=== PATIENT | male | born 1960 | race Caucasian/White ===

== ENCOUNTER → 2018-01-06 | Outpatient (CLI) | payer BC ==
[2018-01-06 12:21] LABS: Basophils % (A) 1 %; Eosinophils # (A) 0.4 k/uL (0-0.7); Eosinophils % (A) 6 %; HCT 51.9 % (39.0-53.0); HGB 17.3 gm/dL (13.0-17.5); Lymphocytes # (A) 1.3 k/uL (1.0-4.8); Lymphocytes % (A) 20 %; MCH 31.7 pg (25.0-35.0); MCHC 33.3 g/dL (31.0-37.0); MCV 95.1 fL (80.0-100.0); Mean Platelet Volume 6.9; Monocytes # (A) 0.5 k/uL (0-1.0); Monocytes % (A) 7 %; Neutrophils # (A) 4.5 k/uL (1.3-7.7); Neutrophils % (A) 65 %; Platelet Count 303 k/uL (150-450); RBC 5.46 m/uL (4.30-5.90); RDW 13.1 % (11.5-15.5); WBC 6.8 k/uL (3.8-10.6)
[2018-01-06 12:54] LABS: Anion Gap 10 mmol/L; Blood Urea Nitrogen 20 mg/dL (9-20); Calcium 9.6 mg/dL (8.4-10.2); Carbon Dioxide 29 mmol/L (22-30); Chloride 101 mmol/L (98-107); Glucose 104 mg/dL (74-99); Potassium 5.2 mmol/L (3.5-5.1); Sodium 140 mmol/L (137-145)
== END | disposition home or self-care (01) ==
LOC: LABPAT 11:24
PROVIDERS: ATTEND Urology
DX: Z01.812 Encounter for preprocedural laboratory examination (principal); C61 Malignant neoplasm of prostate; E78.5 Hyperlipidemia, unspecified; R35.0 Frequency of micturition; R31.29 Other microscopic hematuria
CPT/HCPCS: 36415; 80048; 85025; 87086

== ENCOUNTER 2018-01-14 09:13 | Observation (INO) | payer BC ==
[2018-01-11 16:46] VITALS: BMI 20.7
[~2018-01-14 09:13] MED LIST: DEXAMETHASONE SOD PHOSPHATE 10 MG/ML 1 ML VIAL IV ONE; HYDROmorphone 0.5 MG/0.5 ML SYRINGE IVP PRN; ONDANSETRON 4 MG/2 ML VIAL IVP ONE; ceFAZolin IN SWFI 2 GM/20 ML SYRINGE IVP ONE
[2018-01-14] MEDS: LACTATED RINGERS 1,000 ML IV SCH ×2 (10:05→10:06)
[2018-01-14] MEDS ORDERED: LIDOCAINE 1% 20 ML VIAL (10MG/ML) FOR IV START INTRADERMA ONE ×2 (10:06)
[2018-01-14] MEDS ORDERED: MIDAZOLAM 2 MG/2 ML VIAL ONE (12:39)
[2018-01-14] MEDS ORDERED: GLYCOPYRROLATE 0.2 MG/ML 2 ML VIAL ONE (12:39)
[2018-01-14] MEDS ORDERED: SUCCINYLCHOLINE CHLORIDE 100 MG/5 ML SYR IV ONE (12:39)
[2018-01-14] MEDS ORDERED: ePHEDrine SULFATE/0.9% NACL/PF 50 MG/5 ML SYRINGE IV ONE (12:39)
[2018-01-14] MEDS ORDERED: PROPOFOL 10 MG/ML 20 ML VIAL IV ONE (12:39)
[2018-01-14] MEDS ORDERED: ROCURONIUM BROMIDE 10 MG/ML 10 ML VIAL IV ONE (12:39)
[2018-01-14] MEDS ORDERED: NEOSTIGMINE 1 MG/ML 10 ML VIAL ONE (12:39)
[2018-01-14] MEDS ORDERED: fentaNYL (PF) 50 MCG/ML 2 ML AMP ONE (12:39)
[2018-01-14] MEDS ORDERED: LIDOCAINE 1% INJ 10MG/ML (20 ML MDV) ONE (12:39)
[2018-01-14] MEDS ORDERED: HYDROmorphone (PF) 1 MG/ML ONE (12:39)
[2018-01-14] MEDS ORDERED: BUPIVACAINE (PF) 0.5% 30 ML VIAL SQ ONE ×2 (13:01)
--- NOTE | 2018-01-14 15:51 | P.OP ---
Date of Procedure: 01/14/18 Preoperative Diagnosis: Adenocarcinoma of the Prostate, Clinical Stage [id number] Postoperative Diagnosis: Same Procedure(s) Performed: Left Nerve-Sparing Robotic-assisted Laparoscopic Prostatectomy (RALP) Anesthesia: TACOS Surgeon: Fredo Godoy Supervisor Forming And Tempering #1: Perri Reyna Estimated Blood Loss (ml): 100 IV fluids (ml): 700 Pathology: other (Prostate and seminal vesicles) Condition: stable Disposition: PACU Indications for Procedure: He is a 57-year-old male with a family history of prostate cancer. His PSA level has risen to 4.7. Prostate biopsies reveal [place] 6-7 in 5 of 12 biopsies. Treatment options: RALP, IMRT +/- ADT, Combination RT. He has elected to undergo a left nerve-sparing RALP. He understands the likelihood of postoperative erectile dysfunction, and is not particularly concerned about this. He also understands the possible need for adjuvant therapy. Operative Findings: No evidence of extraprostatic disease Description of Procedure: The patient was taken in the operating room and placed in the dorsal lithotomy position, with his legs supported in Jah stirrups. He was carefully positioned on a beanbag for stability. The abdomen and external genitalia were prepped and draped sterilely. A Rees catheter was inserted. The Veress needle was passed through the anterior abdominal wall immediately cephalad to the umbilicus, and insufflation was performed to a pressure of 20 mm Hg. Once insufflation was performed, the Veress needle was removed and a supraumbilical incision was made, through which a 12 mm camera port was placed. Under camera guidance, 3 8 mm robotic ports were placed, 2 on the left and one on the right. An additional 12 mm port was placed on the right lateral side for use as an travel assistant port. A 5 mm port was placed to the right of the camera port for suction. The patient was placed in Trendelenburg position, and docking was then performed to the da Miah system utilizing a 4-arm approach. The abdomen was examined. The sigmoid colon was mobilized out of the pelvis. The peritoneum was incised lateral to the medial umbilical ligaments bilaterally , exposing the pubis. The peritoneum was then incised across the midline, allowing the bladder flap to be taken down. The endopelvic fascia was opened bilaterally, and muscular attachments from the urogenital diaphragm were swept away from the prostate. The vesical neck was incised transversely, down to the lumen. The Rees catheter was brought out through the anterior vesical neck incision and was used for traction. The posterior aspect of the vesical neck was incised, such that the full-thickness of the vesical neck was divided. The anterior layer of the Denonvilliers fascia was incised, exposing the vas deferens. Each were isolated and divided. Next, each of the seminal vesicles were dissected away from adjacent tissues, and vascular attachments were cauterized and divided. The posterior leaf of Denonvilliers fascia was incised transversely, allowing entry into the plane between the prostate and rectum. With lateral spreading, this plane was developed down to the apex. This exposed the lateral vascular pedicles bilaterally. These were clipped and divided in an antegrade fashion, down to the apex. The use of electrocautery was avoided on the left side, as the plane of dissection on that side was immediately adjacent to the prostate to preserve the left neurovascular bundle. The remaining apical attachments were swept away from the prostate. The dorsal venous complex was incised, as well as periurethral tissue. At this point, only the urethra remained intact. This was transected immediately distal to the prostatic apex using cold scissors. The specimen was placed within a specimen bag. The dorsal venous complex was sutured using a V-Loc suture in a running fashion. A second V-Loc suture was then used to place the Vito stitch, incorporating the rhabdosphincter and the edge of Denonvilliers fascia. This allowed the bladder to be taken down to the urethra, leaving the vesical neck immediately adjacent to the urethra. The vesicourethral anastomosis was then performed using a V-Loc suture in a running fashion. After completing the anastomosis, an 18-[place] Rees catheter was placed and approximately 150 mL of 0.9 normal saline were instilled into the bladder. No extravasation of irrigant from the vesicourethral anastomosis was noted. A small amount of oozing was noted from the left lateral vascular pedicle, so Surgicel was placed over this. The patient was returned to the supine position. Undocking was performed, and the specimen bag sutures were passed through the camera port. After removing all the ports and allowing all of the CO2 to be released from the peritoneal cavity, the camera port incision was enlarged to allow removal of the surgical specimen. The fascia of this incision was then closed using 0 Vicryl suture in an interrupted [id number] fashion. Each of the skin incisions were then closed using 4-0 Monocryl suture in a subcuticular fashion. Marcaine was injected at each of the incision sites. Dermabond was applied to each incision. The Rees catheter was connected to gravity drainage. All sponge and needle counts were correct. The patient tolerated the procedure well was taken to the recovery room in stable condition.
[2018-01-14] MEDS ORDERED: ONDANSETRON 4 MG/2 ML VIAL IVP PRN (15:52)
[2018-01-14] MEDS ORDERED: HYDROmorphone 0.5 MG/0.5 ML SYRINGE IVP PRN (15:52)
[2018-01-14] MEDS ORDERED: ACETAMINOPHEN TAB 325 MG TAB PO PRN (15:52)
[2018-01-14] MEDS ORDERED: MAG HYDROX/AL HYDROX/SIMETH 30 ML CUP PO PRN (15:52)
[2018-01-14] MEDS: DEXTROSE 5%-0.45% NACL 1,000 ML IV SCH ×2 (18:41→23:01)
[2018-01-14] MEDS: ALBUTEROL NEBULIZED 2.5 MG/3 ML INHALATION SCH (19:54)
[2018-01-14] MEDS: ATORVASTATIN 40 MG TAB PO SCH (22:52)
[2018-01-14] MEDS: KETOROLAC 30 MG/ML 1 ML VIAL IVP PRN (23:00)
[2018-01-14] MEDS: ALBUTEROL NEBULIZED 2.5 MG/3 ML INHALATION PRN (23:27)
[2018-01-15] MEDS: PANTOPRAZOLE 40 MG TABLET PO SCH (07:29)
[2018-01-15] MEDS: SERTRALINE 25 MG TAB PO SCH (07:29)
[2018-01-15] MEDS: DEXTROSE 5%-0.45% NACL 1,000 ML IV SCH ×3 (07:29→20:47)
[2018-01-15] MEDS: ALBUTEROL NEBULIZED 2.5 MG/3 ML INHALATION PRN ×2 (07:41→14:09)
[2018-01-15] MEDS: KETOROLAC 30 MG/ML 1 ML VIAL IVP PRN ×3 (09:56→22:15)
--- NOTE | 2018-01-15 12:29 | P.DS ---
Providers Date of admission: 01/15/18 01:59 Attending physician: Fredo Godoy Primary care physician: Sadiq [facility] Course: The patient is a 57-year-old gentleman with prostate cancer. He is admitted to the hospital yesterday for robotic-assisted radical prostatectomy by Dr. Godoy he did well overnight. He is feeling relatively well this morning. He is ambulated a little. His diet has been regular. His abdomen soft. Discussed discharge. He'll ambulate this afternoon. If his pain is controlled he can ambulate and be discharged home later today on a regular diet limited activity. Ago with a catheter. Obesity in the office in January [address] Larsen. He has been given a prescription of [place] 14 tablets. Postoperative instructions been given. Condition is good. Pathology is pending.. Patient Condition at Discharge: Good Plan - Discharge Summary Discharge Rx Participant: No New Discharge Prescriptions: New HYDROcodone/APAP 5-325MG [[place] 5-325] 1 tab PO Q4HR PRN #14 tab PRN Reason: Pain Control No Action Sertraline [Zoloft] 25 mg PO DAILY Albuterol Sulfate [Proventil Hfa] 1 - 2 puff INHALATION RT-Q6H PRN PRN Reason: COPD Albuterol Nebulized [Ventolin Nebulized] 2.5 mg INHALATION RT-HS Omeprazole [PriLOSEC] 20 mg PO AC-BRKFST Atorvastatin [Lipitor] 40 mg PO HS Discharge Medication List Albuterol Nebulized [Ventolin Nebulized] 2.5 mg INHALATION RT-HS 06/04/16 [ History] Albuterol Sulfate [Proventil Hfa] 1 - 2 puff INHALATION RT-Q6H PRN 06/04/16 [ History] Atorvastatin [Lipitor] 40 mg PO HS 06/04/16 [History] Omeprazole [PriLOSEC] 20 mg PO AC-BRKFST 06/04/16 [History] Sertraline [Zoloft] 25 mg PO DAILY 06/04/16 [History] HYDROcodone/APAP 5-325MG [[place] 5-325] 1 tab PO Q4HR PRN #14 tab 01/15/18 [Rx] Follow up Appointment(s)/Referral(s): Fredo Godoy MD [STAFF PHYSICIAN] - 01/24/18 Activity/Diet/Wound Care/Special Instructions: Home with Rees. Discharge Disposition: HOME SELF-CARE
[2018-01-15] MEDS: ALBUTEROL NEBULIZED 2.5 MG/3 ML INHALATION SCH (19:14)
[2018-01-15] MEDS: ATORVASTATIN 40 MG TAB PO SCH (20:46)
[2018-01-15] MEDS: LACTATED RINGERS 1,000 ML IV SCH (20:48)
[2018-01-16] MEDS: ALBUTEROL NEBULIZED 2.5 MG/3 ML INHALATION PRN ×2 (02:47→09:00)
[2018-01-16] MEDS: KETOROLAC 30 MG/ML 1 ML VIAL IVP PRN ×2 (03:59→10:45)
[2018-01-16 07:52] VITALS: TEMP 97.6
[2018-01-16] MEDS: SERTRALINE 25 MG TAB PO SCH (07:59)
[2018-01-16] MEDS: PANTOPRAZOLE 40 MG TABLET PO SCH (07:59)
[2018-01-16] MEDS: DEXTROSE 5%-0.45% NACL 1,000 ML IV SCH ×2 (08:01→16:06)
--- NOTE | 2018-01-16 11:04 | P.PN ---
Subjective Progress Note Date: 01/16/18 The patient is status post robotic-assisted radical prostatectomy. From that standpoint he is doing well. He had problems with his O2 saturation at 85% off oxygen yesterday. He has been working with Dr. Agosto for possible home oxygen. I kept him in the hospital and Dr. Alfredo are seen in this morning and probably going to arrange for oxygen. He can be discharged home at any time once this is been taking care of. Objective - Vital Signs Vital signs: Vital Signs Temp 97.6 F 01/16/18 07:50 Pulse 64 01/16/18 09:11 Resp 18 01/16/18 07:50 BP 149/71 01/16/18 07:50 Pulse Ox 92 L 01/16/18 05:20 Intake & Output 01/15/18 01/16/18 01/16/18 18:59 06:59 18:59 Intake Total 1625 1000 Output Total 1490 2275 Balance 135 -1275 Intake: Intake, IV Titration 1125 1000 Amount Dextrose 5%-0.45% NaCl 1, 1125 1000 000 ml @ 125 mls/hr IV . Q8H [facility] Rx#:[id number] Oral 500 Output: Urine 1490 2275 Uretheral (Rees) 1575 Other: Voiding Method Indwelling Catheter Indwelling Catheter Indwelling Catheter
--- NOTE | 2018-01-16 11:15 | XR ---
EXAMINATION TYPE: XR chest 2V DATE OF EXAM: 01/16/2018 COMPARISON: Prior chest x-ray 06/09/2016 and 12/03/2017 HISTORY: Shortness of breath, COPD TECHNIQUE: Frontal and lateral views of the chest are obtained. FINDINGS: There is improvement in aeration in the right upper lobe. No evident pneumothorax or pleur al effusion. Residual scarring is suspected in the right lung, there may be basilar atelectasis. Card iac mediastinal silhouette shows possible enlargement of the pulmonary artery, consider pulmonary art harlan hypertension. There is minimal blunting of the posterior costophrenic angle. IMPRESSION: Suspect scarring, there may be basilar atelectasis, small effusion, follow-up as indicat ed
--- NOTE | 2018-01-16 15:37 | P.CNPUL ---
History of Present Illness Consult date: 01/16/18 Reason for consult: COPD, hypoxemia Chief complaint: Prostate cancer History of present illness: This is a 57-year-old white male with history of severe COPD, normally sees Dr. Agosto, and supposedly he has a stage III COPD, and he continues to smoke. Patient is at least a [id number] smoker, he was recently diagnosed as having prostate cancer stage TIc. And he underwent robotic-assisted radical prostatectomy. Patient was supposed to be discharged home today, however his O2 saturation was low, and I was asked to see him on consultation. Patient has been evaluated by Dr. Agosto recently, and he was advised to go on home oxygen, apparently he qualified on outpatient basis, but for some reason his a shortness could not cover his oxygen, hence he never had it delivered to his house. Supposedly Dr. Agosto is still working on getting him oxygen at home. Patient has symptoms of chronic obstructive lung disease mostly intermittent episodes of cough wheezing shortness of breath, but he is no different today from his baseline. Based on the workup done while inpatient patient clearly qualifies for home oxygen. Hence I recommended that he gets oxygen and he could be discharged home to have follow-up with Dr. Agosto on outpatient basis. Presently denies any cough, no wheezing, he does have chronic dyspnea on exertion, unable to walk more than one block without significant dyspnea. No fever no chills no hemoptysis no nausea no vomiting no abdominal pain no melena no hematemesis no dysuria and no frequency no urgency. Review of Systems 14 point review of systems were obtained, please refer to pertinent positives and negatives as per HPI otherwise remaining systems are negative. Past Medical History Past Medical History: Cancer, COPD, GERD/Reflux, Hyperlipidemia, Osteoarthritis (OA), Pneumonia Additional Past Medical History / Comment(s): new dx. prostate cancer, vilma. inguinal hernias History of Any Multi-Drug Resistant Organisms: None Reported Additional Past Surgical History / Comment(s): COLONOSCOPY. SX FOR PUNCTURED LUNG Past Anesthesia/Blood Transfusion Reactions: No Reported Reaction Smoking Status: Current every day smoker - Past Family History Father Family Medical History: Cancer Mother Family Medical History: Cancer Medications and Allergies Home Medications Medication Instructions Recorded Confirmed Type Albuterol Nebulized [Ventolin 2.5 mg INHALATION RT-HS 06/04/16 01/15/18 History Nebulized] Albuterol Sulfate [Proventil Hfa] 1 - 2 puff INHALATION RT-Q6H PRN 06/04/16 History Atorvastatin [Lipitor] 40 mg PO HS 06/04/16 01/15/18 History Omeprazole [PriLOSEC] 20 mg PO AC-BRKFST 06/04/16 01/15/18 History Sertraline [Zoloft] 25 mg PO DAILY 06/04/16 01/15/18 History HYDROcodone/APAP 5-325MG [[place] 1 tab PO Q4HR PRN #14 tab 01/15/18 Rx 5-325] Allergies Allergy/AdvReac Type Severity Reaction Status Date / Time No Known Allergies Allergy Verified 01/15/18 10:12 Physical Exam Vitals: Vital Signs Temp Pulse Pulse Resp BP Pulse Ox 01/16/18 09:11 64 01/16/18 09:00 64 01/16/18 07:50 97.6 F 64 18 149/71 01/16/18 05:20 97.4 F L 74 16 125/65 92 L 01/16/18 02:56 68 01/16/18 02:47 64 01/15/18 20:40 98.0 F 62 18 136/72 92 L 01/15/18 19:24 73 01/15/18 19:15 70 01/15/18 16:03 97.4 F L 69 16 123/58 92 L Intake and Output 01/16/18 01/16/18 01/16/18 06:59 14:59 22:59 Intake Total 550 Output Total 1275 Balance -1275 550 Intake: Intake, IV Titration 550 Amount Dextrose 5%-0.45% NaCl 1, 550 000 ml @ 125 mls/hr IV . Q8H [facility] Rx#:[id number] Output: Urine 1275 Uretheral (Rees) 575 Other: Voiding Method Indwelling Catheter Physical Exam: Revealed a 57-year-old white male in no distress. Head: Atraumatic, normocephalic. HEENT:[Neck is supple.] [No neck masses.] [No thyromegaly.] [No JVD.] Chest: Diminished breath sound bilaterally, no crackles or rhonchi or wheezes. Cardiac Exam: [Normal S1 and S2, no S3 gallop, no murmur.] Abdomen: [Soft, nontender, no megaly, no rebound, no guarding, normal bowel sounds.] Extremities: [No clubbing, no edema, no cyanosis.] Neurological Exam: [No focal neurologic deficit. Lymphatics: No lymphadenopathy. Psychiatric: Normal mood affect and mental status examination.] Results - Diagnostic Findings Chest x-ray: image reviewed (Chronic scarring in the right upper lobe, and minimal basilar atelectasis.) Assessment and Plan Assessment: Impression: 1 Chronic hypoxic respiratory failure secondary to severe COPD. 2 status post prostatectomy for recently diagnosed prostate cancer, postoperative day #1. 3 hypercholesterolemia, maintained on atorvastatin. Chronic tobacco dependence syndrome History of depression presently inactive. Recommendation: Patient will be given a prescription for home O2 at 2 L nasal cannula, he was advised to remain on the same bronchodilators that were given to him by Dr. Agosto, advised to follow-up in our office in 1-2 weeks at the most. Cleared for discharge today. Time with Patient: Greater than 30
[2018-01-16 16:18] VITALS: BP 149/74; PULSE 70; RESP 16
== END 2018-01-16 16:33 | disposition home or self-care (01) ==
LOC: OR 09:13 → 5MS5E 16:01 → OR 01-15 01:59
PROVIDERS: ADMIT Urology; ATTEND Urology
DX: C61 Malignant neoplasm of prostate (principal); J44.9 Chronic obstructive pulmonary disease, unspecified; F17.210 Nicotine dependence, cigarettes, uncomplicated; K21.9 Gastro-esophageal reflux disease without esophagitis; E78.5 Hyperlipidemia, unspecified; M19.90 Unspecified osteoarthritis, unspecified site; J96.11 Chronic respiratory failure with hypoxia; E78.00 Pure hypercholesterolemia, unspecified; F32.9 Major depressive disorder, single episode, unspecified; F41.9 Anxiety disorder, unspecified; M54.5 Low back pain; Z91.19 Patient's noncompliance with other medical treatment and regimen; Z87.01 Personal history of pneumonia (recurrent); Z79.51 Long term (current) use of inhaled steroids; Z79.899 Other long term (current) drug therapy; Z80.42 Family history of malignant neoplasm of prostate; Z80.9 Family history of malignant neoplasm, unspecified
CPT/HCPCS: 55866; 94640 ×5; 81025; 86900; 86901; 86850; 88309; 71046; 36415; G0378 ×2; J2250; J1100; J2710; J2405; J2001; J3010; J1885 ×3; J1170; J0330; J2704

== ENCOUNTER → 2018-06-20 | Outpatient (CLI) | payer BC | END | disposition home or self-care (01) | LOC: LABWHC1 11:01 | PROVIDERS: ATTEND Urology | DX: C61 Malignant neoplasm of prostate (principal) | CPT/HCPCS: 36415; 84153 ==

== ENCOUNTER 2018-06-26 15:52 | Observation (INO) | payer BC ==
[2018-06-26] MEDS ORDERED: SODIUM CHLORIDE 0.9% 1,000 ML IV STA (16:37)
[2018-06-26] MEDS ORDERED: ASPIRIN 81 MG PO STA (16:37)
[2018-06-26 17:44] LABS: Basophils # (A) 0.1 k/uL (0-0.2); Basophils % (A) 1 %; Eosinophils # (A) 0.5 k/uL (0-0.7); Eosinophils % (A) 4 %; HCT 48.6 % (39.0-53.0); HGB 15.7 gm/dL (13.0-17.5); Lymphocytes # (A) 1.7 k/uL (1.0-4.8); Lymphocytes % (A) 17 %; MCH 31.4 pg (25.0-35.0); MCHC 32.3 g/dL (31.0-37.0); MCV 97.2 fL (80.0-100.0); Mean Platelet Volume 6.3; Monocytes # (A) 0.5 k/uL (0-1.0); Monocytes % (A) 5 %; Neutrophils # (A) 7.4 k/uL (1.3-7.7); Neutrophils % (A) 72 %; Platelet Count 420 k/uL (150-450); RDW 12.2 % (11.5-15.5); WBC 10.2 k/uL (3.8-10.6)
[2018-06-26 17:59] LABS: Partial Thromboplastin Time 24.8 sec (22.0-30.0); Prothrombin Time 10.4 sec (9.0-12.0)
[2018-06-26 18:01] LABS: ALT 26 U/L (21-72); AST 15 U/L (17-59); Albumin 3.9 g/dL (3.5-5.0); Alkaline Phosphatase 54 U/L (38-126); Anion Gap 7 mmol/L; Blood Urea Nitrogen 19 mg/dL (9-20); Calcium 9.4 mg/dL (8.4-10.2); Carbon Dioxide 27 mmol/L (22-30); Chloride 107 mmol/L (98-107); Glucose 94 mg/dL (74-99); Lipase 57 U/L (23-300); Magnesium 2.1 mg/dL (1.6-2.3); Potassium 4.6 mmol/L (3.5-5.1); Sodium 141 mmol/L (137-145); Total Bilirubin 0.3 mg/dL (0.2-1.3)
--- NOTE | 2018-06-26 18:10 | ED ---
General Adult HPI - General Chief complaint: Abdominal Pain Stated complaint: Hernia Source: patient, RN notes reviewed, old records reviewed Mode of arrival: ambulatory Limitations: no limitations - History of Present Illness Initial comments: 57-year-old male patient with past history of COPD presents in ED with approximately 3 week history of painful left inguinal hernia. Patient states that he was seen by his primary care physician who referred him to a general surgeon, however patient did not present to his appointment. Patient states that the pain in his lateral hernias dull, worse with exertion. The pain is waxing and waning not constant. Patient additionally had an episode of chest pain this morning. Patient describes the chest pain is substernal pressure. Patient states that this occurred for approximately half an hour while he was at rest. Patient denies any radiation of the chest pain. Patient denies any diaphoresis during this event. Patient states that the event resolved without intervention. Patient was at rest during the duration of this event. Patient denies current chest pain shortness of breath abdominal pain nausea vomiting diarrhea fever chills. Systemic: Pt denies fatigue, myalgia, fever/chills, rash. Pt denies weakness, night sweats, weight loss. Neuro: Pt denies headache, visual disturbances, syncope or pre-syncope. HEENT: Pt denies ocular discharge or irritation, otalgia, rhinorrhea, pharyngitis or notable lymphadenopathy. Cardiopulmonary: Pt denies SOB, heart palpitations, dyspnea on exertion. Abdominal/GI: Pt denies abdominal pain, n/v/d. : Pt denies dysuria, burning w/ urination, frequency/urgency. Denies new onset urinary or bowel incontinence. MSK: Pt denies myalgia, loss of strength or function in extremities. Neuro: Pt denies new onset weakness, paresthesias. - Related Data Home Medications Medication Instructions Recorded Confirmed Albuterol Nebulized [Ventolin 2.5 mg INHALATION RT-HS 06/04/16 06/26/18 Nebulized] Albuterol Sulfate [Proventil Hfa] 1 - 2 puff INHALATION RT-Q6H PRN 06/04/1604/05 Atorvastatin [Lipitor] 40 mg PO HS 06/04/16 06/26/18 Omeprazole [PriLOSEC] 20 mg PO AC-BRKFST 06/04/16 06/26/18 Sertraline [Zoloft] 25 mg PO DAILY 06/04/16 06/26/18 Allergies Allergy/AdvReac Type Severity Reaction Status Date / Time No Known Allergies Allergy Verified 06/26/18 16:30 Review of Systems ROS Statement: Those systems with pertinent positive or pertinent negative responses have been documented in the HPI. ROS Other: All systems not noted in ROS Statement are negative. Past Medical History Past Medical History: COPD, GERD/Reflux, Hyperlipidemia, Pneumonia, Prostate Disorder Additional Past Medical History / Comment(s): HAD PNEUMONIA ABOUT 3 WEEKS AGO History of Any Multi-Drug Resistant Organisms: MRSA Date of last positivie culture/infection: 02/28/18 MDRO Source:: MRSA URINE Additional Past Surgical History / Comment(s): COLONOSCOPY. SX FOR PUNCTURED LUNG. prostatectomy Past Anesthesia/Blood Transfusion Reactions: No Reported Reaction Past Psychological History: Anxiety, Depression Smoking Status: Current every day smoker - Past Family History Father Family Medical History: Cancer Mother Family Medical History: Cancer General Exam - General Exam Comments Initial Comments: Constitutional: NAD, AOX3, Pt has pleasant affect. HEENT: NC/AT, trachea midline, neck supple, no lymphadenopathy. Posterior pharynx non erythematous, without exudates. External ears appear normal, without discharge. Mucous membranes moist. Eyes PERRLA, EOM intact. There is no scleral icterus. No pallor noted. Cardiopulmonary: RRR, no murmurs, rubs or gallops, no JVD noted. Lungs CTAB in anterior and posterior horne. No peripheral edema. Abdominal exam: Abdomen soft and non-distended. Abdomen non-tender to palpation in all 4 quadrants. Bowel sounds active in LLQ. No hepatosplenomegaly. No ecchymosis Neuro: CN II-XII grossly intact. No nuchal rigidity. MSK: No posterior calf tenderness bilaterally, homans sign negative bilaterally. Posterior tibialis and radial pulse +2 bilaterally. Sensation intact in upper and lower extremities. Full active ROM in upper and lower extremities, 5/5 stregnth. : Reducible direct inguinal hernia noted in left inguinal region. Nontender to palpation. Rectal exam displayed no abnormalities. No communication of hernia with scrotum. No erythema, discharge, signs of infection. Limitations: no limitations Course Vital Signs 06/26/18 06/26/18 06/26/18 16:20 20:50 21:00 Temperature 97.8 F Pulse Rate 67 63 63 Respiratory 18 14 13 Rate Blood Pressure 128/69 135/75 135/75 O2 Sat by Pulse 97 99 99 Oximetry 06/26/18 21:30 Temperature Pulse Rate 59 L Respiratory 23 Rate Blood Pressure 119/73 O2 Sat by Pulse 99 Oximetry Medical Decision Making - Medical Decision Making 57-year-old male patient presents in ED for 30 minutes of chest pain earlier in day, left inguinal hernia. Physical exam displayed the left inguinal hernia, soft and reducible. Physical exam did not display any other acute pathology. Extensive workup was conducted. EKG displayed normal sinus rhythm, some hyperacute T waves. Cardiac enzymes are negative, troponin was negative. CBC, CMP, UA were not impressive. CT abdomen pelvis did not display acute pathology. Patient to be admitted observation for chest pain. Case discussed with Dr. Alexander. - Lab Data Result diagrams: 06/26/18 17:34 06/26/18 17:34 Lab Results 06/26/18 06/26/18 06/26/18 Range/Units 17:34 17:34 17:34 WBC 10.2 (3.8-10.6) k/uL RBC 5.00 (4.30-5.90) m/uL Hgb 15.7 (13.0-17.5) gm/dL Hct 48.6 (39.0-53.0) % MCV 97.2 (80.0-100.0) fL MCH 31.4 (25.0-35.0) pg MCHC 32.3 (31.0-37.0) g/dL RDW 12.2 (11.5-15.5) % Plt Count 420 (150-450) k/uL Neutrophils % 72 % Lymphocytes % 17 % Monocytes % 5 % Eosinophils % 4 % Basophils % 1 % Neutrophils # 7.4 (1.3-7.7) k/uL Lymphocytes # 1.7 (1.0-4.8) k/uL Monocytes # 0.5 (0-1.0) k/uL Eosinophils # 0.5 (0-0.7) k/uL Basophils # 0.1 (0-0.2) k/uL PT 10.4 (9.0-12.0) sec INR 1.0 (<1.2) APTT 24.8 (22.0-30.0) sec Sodium 141 (137-145) mmol/L Potassium 4.6 (3.5-5.1) mmol/L Chloride 107 (98-107) mmol/L Carbon Dioxide 27 (22-30) mmol/L Anion Gap 7 mmol/L BUN 19 (9-20) mg/dL Creatinine 0.69 (0.66-1.25) mg/dL Est GFR (CKD-EPI)AfAm >90 (>60 ml/min/1.73 sqM) Est GFR (CKD-EPI)NonAf >90 (>60 ml/min/1.73 sqM) Glucose 94 (74-99) mg/dL Calcium 9.4 (8.4-10.2) mg/dL Magnesium 2.1 (1.6-2.3) mg/dL Total Bilirubin 0.3 (0.2-1.3) mg/dL AST 15 L (17-59) U/L ALT 26 (21-72) U/L Alkaline Phosphatase 54 (38-126) U/L Troponin I (0.000-0.034) ng/mL NT-Pro-B Natriuret Pep pg/mL Total Protein 7.0 (6.3-8.2) g/dL Albumin 3.9 (3.5-5.0) g/dL Lipase 57 (23-300) U/L Urine Color Urine Appearance (Clear) Urine pH (5.0-8.0) Ur Specific [place] (1.001-1.035) Urine Protein (Negative) Urine Glucose (UA) (Negative) Urine Ketones (Negative) Urine Blood (Negative) Urine Nitrite (Negative) Urine Bilirubin (Negative) Urine Urobilinogen (<2.0) mg/dL Ur Leukocyte Esterase (Negative) 06/26/18 06/26/18 06/26/18 Range/Units 17:34 17:34 17:50 WBC (3.8-10.6) k/uL RBC (4.30-5.90) m/uL Hgb (13.0-17.5) gm/dL Hct (39.0-53.0) % MCV (80.0-100.0) fL MCH (25.0-35.0) pg MCHC (31.0-37.0) g/dL RDW (11.5-15.5) % Plt Count (150-450) k/uL Neutrophils % % Lymphocytes % % Monocytes % % Eosinophils % % Basophils % % Neutrophils # (1.3-7.7) k/uL Lymphocytes # (1.0-4.8) k/uL Monocytes # (0-1.0) k/uL Eosinophils # (0-0.7) k/uL Basophils # (0-0.2) k/uL PT (9.0-12.0) sec INR (<1.2) APTT (22.0-30.0) sec Sodium (137-145) mmol/L Potassium (3.5-5.1) mmol/L Chloride (98-107) mmol/L Carbon Dioxide (22-30) mmol/L Anion Gap mmol/L BUN (9-20) mg/dL Creatinine (0.66-1.25) mg/dL Est GFR (CKD-EPI)AfAm (>60 ml/min/1.73 sqM) Est GFR (CKD-EPI)NonAf (>60 ml/min/1.73 sqM) Glucose (74-99) mg/dL Calcium (8.4-10.2) mg/dL Magnesium (1.6-2.3) mg/dL Total Bilirubin (0.2-1.3) mg/dL AST (17-59) U/L ALT (21-72) U/L Alkaline Phosphatase (38-126) U/L Troponin I <0.012 (0.000-0.034) ng/mL NT-Pro-B Natriuret Pep 36 pg/mL Total Protein (6.3-8.2) g/dL Albumin (3.5-5.0) g/dL Lipase (23-300) U/L Urine Color Light Yellow Urine Appearance Clear (Clear) Urine pH 6.0 (5.0-8.0) Ur Specific [place] 1.007 (1.001-1.035) Urine Protein Negative (Negative) Urine Glucose (UA) Negative (Negative) Urine Ketones Negative (Negative) Urine Blood Negative (Negative) Urine Nitrite Negative (Negative) Urine Bilirubin Negative (Negative) Urine Urobilinogen <2.0 (<2.0) mg/dL Ur Leukocyte Esterase Negative (Negative) - EKG Data -: EKG Interpreted by Me (and Dr. Alexander) EKG Comments: 2 EKGs: 1) ventricular rate 61,. For 132, QRS 114, QT/QTc 42/44. Normal sinus rhythm with incomplete right bundle-branch block. Hyperacute T waves in V3 V4 V5 and V6 2) ventricular rate 61,. For 136, QRS 102, T QT/QTc 48/410. Normal sinus rhythm normal EKG. Hyperacute T waves in V3. Disposition Clinical Impression: Chest pain Disposition: ADMITTED IP TO THIS HOSP Condition: Good
[2018-06-26 18:16] LABS: Appearance,Urine Clear (Clear); Bilirubin,Urine Negative (Negative); Blood,Urine Negative (Negative); Color,Urine Light Yellow; Glucose,Urine (UA) Negative (Negative); Ketones,Urine Negative (Negative); Leukocyte Esterase,Urine Negative (Negative); Nitrite,Urine Negative (Negative); Protein,Urine Negative (Negative); Specific Gravity,Urine 1.007 (1.001-1.035); Urobilinogen,Urine <2.0 mg/dL (<2.0)
--- NOTE | 2018-06-26 18:43 | XR ---
EXAMINATION TYPE: XR chest 2V DATE OF EXAM: 06/26/2018 COMPARISON: 01/16/2018 HISTORY: Chest pain TECHNIQUE: Frontal and lateral views of the chest are obtained. FINDINGS: There is no heart failure nor confluent pneumonic infiltrate. There is coarse reticular de nsity in the upper lobes. There is probably upper lobe pulmonary emphysema. There is no pleural effus ion. Heart size is normal. There are chest leads. There are no hilar masses. IMPRESSION: COPD and fibrotic changes at the lung apices. There is improved inspiration compared to old exam.
--- NOTE | 2018-06-26 20:26 | CT ---
EXAMINATION TYPE: CT ChestAbdPelvis w con DATE OF EXAM: 06/26/2018 COMPARISON: CT chest 07/08/2016 HISTORY: chest and abdominal pain, hx of hernia CT DLP: 531.2 mGycm Automated exposure control for dose reduction was used. CONTRAST: CT scan of the chest, abdomen and pelvis is performed without Oral Contrast and with IV Contrast, pat ient injected with 100 mL of Isovue 300. FINDINGS: There is pulmonary emphysema. There is bullous disease in the upper lobes. There is coarse reticular infiltrate in the right lung along the major fissure. There is no pleural effusion. Heart size is nor mal. There is no pericardial effusion. There are no hilar masses. Thoracic aorta is atheromatous. The re are is no mediastinal adenopathy. Liver shows no focal defect. Gallbladder appears normal. Bile ducts are not dilated. Spleen appears n ormal. There is no pancreatic mass. There is no adrenal mass. Kidneys show satisfactory contrast opac ification. There is no hydronephrosis. Abdominal aorta is atheromatous. Ureters are not dilated. Ther e is no retroperitoneal adenopathy. Appendix is not seen. There is no sign of appendicitis. Bladder d istends smoothly. There is no free fluid in the pelvis. There is no inguinal hernia. There is no evid ence of a bowel obstruction. I see no mesenteric edema or adenopathy. The bony pelvis is intact. Thor acic and lumbar spine are intact. There is no compression fracture. IMPRESSION: There is bullous emphysema. There is scarring along the right major fissure. There is sig nificant clearing of the infiltrate and cavitation in the right midlung compared to old exam. No acute abnormality seen within the abdomen and pelvis.
[2018-06-26] MEDS ORDERED: NALOXONE 0.4 MG/ML 1 ML VIAL IV PRN (21:27)
[2018-06-26 22:26] VITALS: BMI 19.3
[2018-06-26] MEDS ORDERED: TEMAZEPAM 15 MG CAP PO PRN (23:59)
[2018-06-26] MEDS ORDERED: HYDROcodone/APAP 5-325MG 1 EACH TAB PO PRN (23:59)
[2018-06-26] MEDS ORDERED: IPRATROPIUM-ALBUTEROL 3 ML NEB INHALATION PRN (23:59)
[2018-06-26] MEDS ORDERED: ACETAMINOPHEN TAB 500 MG TAB PO PRN (23:59)
[2018-06-26] MEDS ORDERED: ALPRAZolam 0.25 MG TAB PO PRN (23:59)
[2018-06-27] MEDS ORDERED: LEVOFLOXACIN 500MG-D5W PMX 500 MG in DEXTROSE/WATER 1 100ML.BAG IVPB SCH
[2018-06-27 03:25] VITALS: RESP 18
[2018-06-27] MEDS ORDERED: NON-FORMULARY DRUG (Omeprazole 20 MG) PO SCH (07:30)
[2018-06-27] MEDS ORDERED: PANTOPRAZOLE 40 MG TABLET PO SCH (07:30)
[2018-06-27] MEDS: IPRATROPIUM-ALBUTEROL 3 ML NEB INHALATION SCH ×3 (07:59→15:39)
[2018-06-27] MEDS ORDERED: SYMBICORT 160-4.5 MCG INHALER INHALATION SCH (08:00)
[2018-06-27] MEDS ORDERED: SERTRALINE 50 MG TAB PO SCH (09:00)
[2018-06-27] MEDS ORDERED: NICOTINE 14MG/24HR PATCH TRANSDERM SCH (09:00)
[2018-06-27 09:02] LABS: Basophils # (A) 0.1 k/uL (0-0.2); Basophils % (A) 1 %; Eosinophils # (A) 0.5 k/uL (0-0.7); Eosinophils % (A) 6 %; HCT 46.5 % (39.0-53.0); HGB 14.8 gm/dL (13.0-17.5); Lymphocytes # (A) 1.8 k/uL (1.0-4.8); Lymphocytes % (A) 19 %; MCH 31.5 pg (25.0-35.0); MCHC 31.9 g/dL (31.0-37.0); MCV 98.8 fL (80.0-100.0); Mean Platelet Volume 6.6; Monocytes # (A) 0.6 k/uL (0-1.0); Monocytes % (A) 6 %; Neutrophils # (A) 6.2 k/uL (1.3-7.7); Neutrophils % (A) 67 %; Platelet Count 386 k/uL (150-450); RBC 4.71 m/uL (4.30-5.90); RDW 12.3 % (11.5-15.5); WBC 9.4 k/uL (3.8-10.6)
--- NOTE | 2018-06-27 09:11 | P.CRDCN ---
History of Present Illness Consult date: 06/27/18 Requesting physician: Virgil Garcia Reason for Consult (text): chest pain Chief complaint: inguinal hernia, chest pain History of present illness: As a pleasant 57-year-old gentleman with history of hyperlipidemia, COPD, smoking, and prostate cancer. Was seen earlier this year in the office by Dr. Vieira prior to undergoing prostatectomy. At that time workup included a Lexiscan Cardiolite that was negative for fixed or reversible perfusion defects and showed a normal ejection fraction of 63% as well as a 2-D echo with Doppler that showed mildly decreased systolic function with an ejection fraction of 40- 45% with mild MR, mild TR, and mildly increased PASP. Presented to the emergency department on this occasion for complaints of discomfort involving his known inguinal hernia. He also complained of some chest discomfort that he described as a fullness that lasted about 20 minutes while he was sitting and drinking his coffee. He does get this occasionally. Relieved on its own not related to exertion. No exacerbating or relieving factors, no associated symptoms. EKG on admission showed sinus rhythm with no acute ST-T wave abnormalities. A evaluation showed a normal CBC, normal electrolytes and renal function and troponins negative 2. Vital signs up and stable. He's had no recurrence of chest discomfort. Upon examination, patient is resting comfortably in bed. Denies complaints of chest discomfort. He does have complaints of shortness of breath with activity that is chronic for him. He denies complaints of orthopnea or PND. Does have complaints of rapid heartbeat and mild lightheadedness with exertion. Past Medical History Past Medical History: COPD, GERD/Reflux, Hyperlipidemia, Pneumonia, Prostate Disorder Additional Past Medical History / Comment(s): HAD PNEUMONIA ABOUT 3 WEEKS AGO History of Any Multi-Drug Resistant Organisms: MRSA Date of last positivie culture/infection: 02/28/18 MDRO Source:: MRSA URINE Additional Past Surgical History / Comment(s): COLONOSCOPY. SX FOR PUNCTURED LUNG. prostatectomy Past Anesthesia/Blood Transfusion Reactions: No Reported Reaction Past Psychological History: Anxiety, Depression Smoking Status: Current every day smoker - Past Family History Father Family Medical History: Cancer Mother Family Medical History: Cancer Medications and Allergies Home Medications Medication Instructions Recorded Confirmed Type Albuterol Nebulized [Ventolin 2.5 mg INHALATION RT-HS 06/04/16 06/26/18 History Nebulized] Albuterol Sulfate [Proventil Hfa] 1 - 2 puff INHALATION RT-Q6H PRN 06/04/1604/05 History Atorvastatin [Lipitor] 40 mg PO HS 06/04/16 06/26/18 History Omeprazole [PriLOSEC] 20 mg PO AC-BRKFST 06/04/16 06/26/18 History Sertraline [Zoloft] 25 mg PO DAILY 06/04/16 06/26/18 History Allergies Allergy/AdvReac Type Severity Reaction Status Date / Time No Known Allergies Allergy Verified 06/26/18 16:30 Physical Exam Vitals: Vital Signs Temp Pulse Pulse Resp BP BP Pulse Ox 06/27/18 08:13 68 06/27/18 08:00 68 06/27/18 07:30 97.6 F 71 18 133/62 98 06/27/18 04:00 18 06/27/18 03:25 97.9 F 63 18 134/60 97 06/26/18 23:55 97.9 F 63 16 120/52 97 06/26/18 23:00 16 06/26/18 22:17 98.1 F 61 16 149/70 99 06/26/18 21:30 59 L 23 119/73 99 06/26/18 21:00 63 13 135/75 99 06/26/18 20:50 63 14 135/75 99 06/26/18 16:20 97.8 F 67 18 128/69 97 Intake and Output 06/26/18 06/27/18 06/27/18 22:59 06:59 14:59 Other: Voiding Method Toilet # Voids 1 2 Weight 54.4 kg 54.4 kg PHYSICAL EXAMINATION: HEENT: Head is atraumatic, normocephalic. Pupils equal, round. Neck is supple. There is no elevated jugular venous pressure. HEART EXAMINATION: Heart sounds regular, S1 and S2 normal. No murmur or gallop heard. CHEST EXAMINATION: Lungs are clear to auscultation with diminished air entry throughout. No chest wall tenderness is noted on palpation or with deep breathing. ABDOMEN: Soft, nontender. Bowel sounds are heard. No organomegaly noted. EXTREMITIES: 2+ peripheral pulses with no evidence of peripheral edema and no calf tenderness noted. NEUROLOGIC patient is awake, alert and oriented x3. . Results 06/27/18 08:05 06/27/18 08:05 Cardiac Enzymes 06/26/18 06/26/18 06/27/18 Range/Units 17:34 17:34 00:26 AST 15 L (17-59) U/L Troponin I <0.012 <0.012 (0.000-0.034) ng/mL Coagulation 06/26/18 Range/Units 17:34 PT 10.4 (9.0-12.0) sec APTT 24.8 (22.0-30.0) sec CBC 06/26/18 Range/Units 17:34 WBC 10.2 (3.8-10.6) k/uL RBC 5.00 (4.30-5.90) m/uL Hgb 15.7 (13.0-17.5) gm/dL Hct 48.6 (39.0-53.0) % Plt Count 420 (150-450) k/uL Comprehensive Metabolic Panel 06/26/18 Range/Units 17:34 Sodium 141 (137-145) mmol/L Potassium 4.6 (3.5-5.1) mmol/L Chloride 107 (98-107) mmol/L Carbon Dioxide 27 (22-30) mmol/L BUN 19 (9-20) mg/dL Creatinine 0.69 (0.66-1.25) mg/dL Glucose 94 (74-99) mg/dL Calcium 9.4 (8.4-10.2) mg/dL AST 15 L (17-59) U/L ALT 26 (21-72) U/L Alkaline Phosphatase 54 (38-126) U/L Total Protein 7.0 (6.3-8.2) g/dL Albumin 3.9 (3.5-5.0) g/dL Current Medications Generic Name Dose Route Start Last Admin Trade Name Freq PRN Reason Stop Dose Admin Acetaminophen 500 mg 06/26/18 23:59 Tylenol Tab PO Q6HR PRN Fever and/ or Pain Hydrocodone Bitart/Acetaminophen 1 each 06/26/18 23:59 [place] 5-325 PO Q6HR PRN Pain Albuterol/Ipratropium 3 ml 06/27/18 08:00 06/27/18 07:59 Duoneb 0.5 Mg-3 Mg/3 Ml Soln INHALATION 3 ml RT-QID MEI Administration Albuterol/Ipratropium 3 ml 06/26/18 23:59 Duoneb 0.5 Mg-3 Mg/3 Ml Soln INHALATION RT-QID PRN Shortness Of Breath Or Wheezing Alprazolam 0.25 mg 06/26/18 23:59 Xanax PO TID PRN Anxiety Atorvastatin Calcium 40 mg 06/27/18 21:00 Lipitor PO HS MEI Budesonide/Formoterol Fumarate 2 puff 06/27/18 08:00 06/27/18 08:00 Symbicort 160-4.5 Mcg Inhaler INHALATION 2 puff RT-BID MEI Administration Levofloxacin 500 mg/ IV 100 mls @ 100 mls/hr 06/27/18 00:00 06/27/18 00:35 Solution IVPB 100 mls/hr Q24H MEI Administration Naloxone HCl 0.2 mg 06/26/18 21:27 Narcan IV Q2M PRN Opioid Reversal Nicotine 1 patch 06/27/18 09:00 Habitrol 14mg/24hr Patch TRANSDERM DAILY MEI Pantoprazole Sodium 40 mg 06/27/18 07:30 Protonix PO AC-BRKFST MEI Sertraline HCl 25 mg 06/27/18 09:00 Zoloft PO DAILY MEI Temazepam 15 mg 06/26/18 23:59 Restoril PO HS PRN Insomnia Intake and Output 06/26/18 06/27/18 06/27/18 22:59 06:59 14:59 Other: Voiding Method Toilet # Voids 1 2 Weight 54.4 kg 54.4 kg 06/26/18 17:34 06/26/18 17:34 Assessment and Plan Assessment: #1 symptoms of chest pain with negative stress test in November of this year, troponins negative 2. #2 hyperlipidemia #3 smoking #4 COPD Plan: From cardiology's perspective, chest discomfort does not seem to be cardiac in nature. Testing from November of this year in our office was reviewed. No further cardiac workup at this time. INNOVATION ANALYST note has been reviewed, I agree with a documented findings and plan of care. Patient was seen and examined.
[2018-06-27 09:28] LABS: Anion Gap 6 mmol/L; Blood Urea Nitrogen 17 mg/dL (9-20); Calcium 9.2 mg/dL (8.4-10.2); Carbon Dioxide 27 mmol/L (22-30); Chloride 109 mmol/L (98-107); Glucose 91 mg/dL (74-99); Potassium 5.2 mmol/L (3.5-5.1); Sodium 142 mmol/L (137-145)
--- NOTE | 2018-06-27 09:51 | HP ---
HISTORY AND PHYSICAL DATE OF SERVICE: 06/26/2018 CHIEF COMPLAINTS: Abdominal pain and chest pain. HISTORY OF PRESENT ILLNESS: This 57-year-old gentleman with a past medical history of multiple medical problems including history of COPD, GERD, hyperlipidemia, history pneumonia, history of MRSA, history of anxiety and depression, being followed by Dr. Al in the outpatient setting has had pneumonia about 3 weeks ago. The patient currently has some shortness of breath. The patient continues to smoke. The patient also complaining of left inguinal pain for the last 3 weeks. The pain is waxing and waning and the patient this morning with chest pain also. Because of multiple symptomatology, patient came to [facility] and was admitted for further evaluation and treatment. There is no history of fever, rigors. No history of headache, loss of consciousness, seizures. The patient had a chest abdomen and pelvis CAT scan, which is reviewed personally by me showed bullous emphysema, scarring around the major fissures, significant clearing of the infiltrate and cavitation previously noted. There is no history of fever, rigors or chills. PAST MEDICAL HISTORY: History of COPD, GERD, hyperlipidemia, history of pneumonia, prostate disorder. MEDICATIONS: Prior to admission include Zoloft 25 mg daily, Prilosec 20 mg daily, Lipitor 40 mg q.h.s., 1 to 2 puffs q.6h, Ventolin 1-2.5 mg q.h.s. ALLERGIES: None. FAMILY HISTORY: History of cancer in the family. SOCIAL HISTORY: History of smoking, continued ongoing. REVIEW OF SYSTEMS: ENT: No diminished vision. No diminished hearing. CARDIOVASCULAR as mentioned earlier. RESPIRATORY: As mentioned earlier. GI mentioned earlier. no dysuria. Nervous System: Numbness and weakness. ALLERGY/IMMUNOLOGY: NO asthma or hayfever. MUSCULOSKELETAL as mentioned earlier. HEMATOLOGY/ONCOLOGY: No history of anemia. CONSTITUTIONAL: As mentioned earlier. Dermatology: Negative. Rheumatology: Negative. Psychiatry: As mentioned earlier. Is negative. PHYSICAL EXAMINATION: Alert oriented x3. Pulse 63, blood pressure 120/52, respiration 16, temperature 97.9, pulse ox 97% on room air. HEENT: Conjunctivae normal. Oral mucosa moist. NECK is no jugular venous distention. No carotid bruit. No lymph node enlargement. CARDIOVASCULAR SYSTEM: S1, S2 muffled. RESPIRATORY SYSTEM: Breath sounds diminished at the bases. Bilateral scattered rhonchi and crackles. Expiratory wheezing also present. ABDOMEN: Soft, nontender. No mass palpable. Otherwise, minimal tenderness in the left inguinal area, hernia also present. NERVOUS SYSTEM: Higher functions as mentioned earlier. Moves all 4 limbs. No focal motor or sensory deficits. Lymphatics: No lymph nodes palpable in the neck, axillae or groin. Skin: No ulcer, rash or bleeding. LABS: CBC within normal limits, sodium 140, potassium 4.6, AST is 15. ASSESSMENT: 1. Chest pain for evaluation, rule out unstable angina. 2. Chronic obstructive pulmonary disease with acute tracheobronchitis. 3. Left inguinal pain with possible left inguinal hernia. 4. History of gastroesophageal reflux disease. 5. Hyperlipidemia. 6. History of pneumonia. 7. History of prostate disorder. 8. History of Methicillin-resistant Staphylococcus aureus. 9. History of bullous emphysema. 10.Anxiety/depression. 11.Continue ongoing nicotine dependence. RECOMMENDATIONS AND DISCUSSION: In this 57-year-old gentleman who presented with multiple complex medical issues , we will monitor the patient closely, continue the current medications, management and symptomatic treatment. Otherwise, we will monitor the patient closely. Cardiology consultation. Rule out myocardial infarction. Unstable angina protocol. I will also get a surgical evaluation for the inguinal pain hernia. Otherwise smoking cessation. Optimize bronchodilator treatment. Resume the home medications. Prognosis guarded because of multiple complex medical issues. Discussed with the patient. Discussed with staff. Further recommendations to follow. A copy of dictation being forwarded to Dr. Al, who is the primary care physician. VERONICAL / TRICIAN: [id number] / [facility] HOSPITALJudith
--- NOTE | 2018-06-27 14:51 | P.GSCN ---
History of Present Illness Consult date: 06/27/18 Reason for Consult: 57-year-old male who presented to the emergency room with a chief complaint of developing a painful left inguinal hernia. Patient stated that he has had swelling in his inguinal area for the past several months. It seems with any exertion he would develop pain in the groin. The pain is not constant comes and goes. Patient stated that he did call his primary care doctor who did refer him to a general surgeon. Patient stated he did not present to the appointment. Patient came into the emergency room initially to be evaluated for painful left inguinal hernia. Patient has been worked up by cardiology for a complaint of chest pain. Patient did undergo a Lexiscan Cardiolite stress test in the beginning of November tissue was negative. Troponins have been negative 2. Cardiology indicated at this time there is no further cardiac workup patient can be seen in outpatient setting currently patient is denying chest pain when questioning Patient does have past medical history of hyperlipidemia, COPD uses 2 L of nasal cannula oxygen at home, and prostate cancer, active current every day smoker CAT scan of the chest abdomen and pelvis with contrast report reviewed in summary [id number] emphysema. No pancreatic mass, gallbladder appears normal, bile ducts not dilated liver no focal deficits defect appendix normal no free air in the pelvis no evidence of a bowel obstruction Review of Systems Essentially unremarkable except as mentioned in the present illness Past Medical History Past Medical History: COPD, GERD/Reflux, Hyperlipidemia, Pneumonia, Prostate Disorder Additional Past Medical History / Comment(s): HAD PNEUMONIA ABOUT 3 WEEKS AGO History of Any Multi-Drug Resistant Organisms: MRSA Year Discovered:: 02/28/18 MDRO Source:: MRSA URINE Additional Past Surgical History / Comment(s): COLONOSCOPY. SX FOR PUNCTURED LUNG. prostatectomy Past Anesthesia/Blood Transfusion Reactions: No Reported Reaction Past Psychological History: Anxiety, Depression Smoking Status: Current every day smoker - Past Family History Father Family Medical History: Cancer Mother Family Medical History: Cancer Medications and Allergies Home Medications Medication Instructions Recorded Confirmed Type Albuterol Nebulized [Ventolin 2.5 mg INHALATION RT-HS 06/04/16 06/26/18 History Nebulized] Albuterol Sulfate [Proventil Hfa] 1 - 2 puff INHALATION RT-Q6H PRN 06/04/1604/05 History Atorvastatin [Lipitor] 40 mg PO HS 06/04/16 06/26/18 History Omeprazole [PriLOSEC] 20 mg PO AC-BRKFST 06/04/16 06/26/18 History Sertraline [Zoloft] 25 mg PO DAILY 06/04/16 06/26/18 History Budesonide-Formot 160-4.5 Mcg 2 puff INHALATION RT-BID #1 inh 06/27/18 Rx [Symbicort 160-4.5 Mcg Inhaler] Ipratropium/Albuterol Sulfate 1 puff INHALATION TID #1 inhaler 06/27/18 Rx [Combivent Respimat Inhaler] Levofloxacin [Levaquin] 500 mg PO DAILY #5 tab 06/27/18 Rx Nicotine 14Mg/24Hr Patch [Habitrol] 1 patch TRANSDERM DAILY #30 patch 06/27/18 Rx predniSONE 10 mg PO DIRECTED #30 tab 06/27/18 Rx Allergies Allergy/AdvReac Type Severity Reaction Status Date / Time No Known Allergies Allergy Verified 06/26/18 16:30 Surgical - Exam Vital Signs Temp Pulse Resp BP Pulse Ox 97.8 F 67 18 128/69 97 06/26/18 16:20 06/26/18 16:20 06/26/18 16:20 06/26/18 16:20 06/26/18 16:20 GENERAL APPEARANCE: 57-year-old male sitting up in bed patient is alert, oriented, in no acute distress. VITAL SIGNS: Reviewed HEENT: Head is normocephalic and atraumatic. Pupils are equal and reactive. The nares are patent. Oropharynx is clear without lesions. NECK: Supple without lymphadenopathy. Traches midline. HEART: S1, S2. Regular rate and rhythm. Denying chest pain LUNGS: Decreased at the bases No crackles or wheezes are heard. Oxygen at 2 L ABDOMEN: Soft, nontender, nondistended with good bowel sounds. No peritoneal signs. No palpable organomegaly or masses. EXTREMITIES: Normal skin color and turgor. No cyanosis, rash, ulceration, clubbing or edema. Radial pedal pulses are 2/4 bilaterally. NEUROLOGICAL: No focal deficits. Strength and sensation are grossly intact. reducible inguinal hernia noted in the left inguinal region tender mild to palpitation no swelling noted to the scrotum Results - Labs 06/27/18 08:05 06/27/18 08:05 Abnormal Lab Results - Last 24 Hours (Table) 06/26/18 06/27/18 Range/Units 17:34 08:05 Potassium 5.2 H (3.5-5.1) mmol/L Chloride 109 H (98-107) mmol/L Creatinine 0.65 L (0.66-1.25) mg/dL AST 15 L (17-59) U/L Diabetes panel 06/26/18 06/27/18 Range/Units 17:34 08:05 Sodium 141 142 (137-145) mmol/L Potassium 4.6 5.2 H (3.5-5.1) mmol/L Chloride 107 109 H (98-107) mmol/L Carbon Dioxide 27 27 (22-30) mmol/L BUN 19 17 (9-20) mg/dL Creatinine 0.69 0.65 L (0.66-1.25) mg/dL Glucose 94 91 (74-99) mg/dL Calcium 9.4 9.2 (8.4-10.2) mg/dL AST 15 L (17-59) U/L ALT 26 (21-72) U/L Alkaline Phosphatase 54 (38-126) U/L Total Protein 7.0 (6.3-8.2) g/dL Albumin 3.9 (3.5-5.0) g/dL Calcium panel 06/26/18 06/27/18 Range/Units 17:34 08:05 Calcium 9.4 9.2 (8.4-10.2) mg/dL Albumin 3.9 (3.5-5.0) g/dL Pituitary panel 06/26/18 06/27/18 Range/Units 17:34 08:05 Sodium 141 142 (137-145) mmol/L Potassium 4.6 5.2 H (3.5-5.1) mmol/L Chloride 107 109 H (98-107) mmol/L Carbon Dioxide 27 27 (22-30) mmol/L BUN 19 17 (9-20) mg/dL Creatinine 0.69 0.65 L (0.66-1.25) mg/dL Glucose 94 91 (74-99) mg/dL Calcium 9.4 9.2 (8.4-10.2) mg/dL Adrenal panel 06/26/18 06/27/18 Range/Units 17:34 08:05 Sodium 141 142 (137-145) mmol/L Potassium 4.6 5.2 H (3.5-5.1) mmol/L Chloride 107 109 H (98-107) mmol/L Carbon Dioxide 27 27 (22-30) mmol/L BUN 19 17 (9-20) mg/dL Creatinine 0.69 0.65 L (0.66-1.25) mg/dL Glucose 94 91 (74-99) mg/dL Calcium 9.4 9.2 (8.4-10.2) mg/dL Total Bilirubin 0.3 (0.2-1.3) mg/dL AST 15 L (17-59) U/L ALT 26 (21-72) U/L Alkaline Phosphatase 54 (38-126) U/L Total Protein 7.0 (6.3-8.2) g/dL Albumin 3.9 (3.5-5.0) g/dL Assessment and Plan Assessment: Impression Present on admission left inguinal hernia pain CAT scan of the abdomen and pelvis with contrast on admission no evidence of a bowel obstruction no appendicitis bullous emphysema changes noted COPD with no evidence of an acute exacerbation 2 L [id number] nasal cannula Present on admission chest pain atypical no evidence of an acute coronary syndrome Lexiscan in November 2017 negative Plan further recommendations per surgical service could be followed in the outpatient setting for repair of inguinal hernia Will follow with you DVT and GI prophylaxis No evidence of acute surgical abdomen at this time Surgical consultation dictated for Dr. shultz The above impression and plan of care have been discussed and directed by signing physician. Carlota Lehman nurse practitioner acting as scribe for signing physician.
[2018-06-27 15:29] VITALS: BP 119/60; TEMP 98.1
[2018-06-27 16:12] VITALS: PULSE 81
--- NOTE | 2018-06-27 20:00 | DS ---
DISCHARGE SUMMARY FINAL DIAGNOSES: 1. Chest pain, possibly musculoskeletal chest pain. 2. Chronic obstructive pulmonary disease, acute exacerbation, with acute purulent tracheobronchitis. 3. Left inguinal pain with a possible left inguinal hernia. 4. Gastroesophageal reflux disease. 5. Hyperlipidemia. 6. History of pneumonia. 7. History of prostate disorder. 8. History of methicillin-resistant Staphylococcus aeruginosa. 9. History of bullous emphysema. 10.Anxiety, depression. 11.Continued ongoing nicotine dependence. DISCHARGE DISPOSITION: The patient will be discharged in stable condition with guarded prognosis. HISTORY OF PRESENT ILLNESS: This 57-year-old gentleman was admitted with chest pain. Myocardial infarction was ruled out. Patient also had a stress test which was negative. Patient was treated with bronchodilators for bronchitis. Patient improved significantly. Surgery saw the patient for left inguinal pain and recommended outpatient followup. On exam, vital signs are stable. CARDIOVASCULAR SYSTEM: S1, S2 muffled. ABDOMEN: Soft. NERVOUS SYSTEM: No focal deficit. DISCHARGE ADVICE AND MEDICATIONS: 1. Diet is cardiac. 2. Activity limited until followup. 3. Follow up with Dr. Al in 2 to 3 days. 4. Follow up with Surgery, Dr. Lee, as advised. 5. Albuterol 2.5 at bedtime. 6. Albuterol p.r.n. 7. Lipitor 40 mg at bedtime. 8. Prilosec 20 mg with breakfast. 9. Zoloft 25 mg p.o. daily. 10.Symbicort 2 puffs b.i.d. 11.Combivent 1 t.i.d. 12.Levaquin 500 mg daily for 5 days. 13.Habitrol 14 daily. Prednisone taper: 40 mg daily for 3 days; 30 mg daily for 3 days; 20 mg daily for 3 days; 10 mg for 3 days. Once again, the patient will be discharged in a stable condition with guarded prognosis. MMODL / IJN: [id number] /
[2018-06-27] MEDS ORDERED: ATORVASTATIN 40 MG TAB PO SCH (21:00)
== END 2018-06-27 17:25 | disposition home or self-care (01) ==
LOC: EC 15:52 → 1SOBS 20:47
PROVIDERS: ADMIT Hospitalist; ATTEND Hospitalist
DX: R07.89 Other chest pain (principal); J44.0 Chronic obstructive pulmonary disease with (acute) lower respiratory infection; J20.9 Acute bronchitis, unspecified; J44.1 Chronic obstructive pulmonary disease with (acute) exacerbation; Z99.81 Dependence on supplemental oxygen; K40.90 Unilateral inguinal hernia, without obstruction or gangrene, not specified as recurrent; K21.9 Gastro-esophageal reflux disease without esophagitis; E78.5 Hyperlipidemia, unspecified; F17.200 Nicotine dependence, unspecified, uncomplicated; F41.9 Anxiety disorder, unspecified; F32.9 Major depressive disorder, single episode, unspecified; Z79.899 Other long term (current) drug therapy; Z87.01 Personal history of pneumonia (recurrent); Z86.14 Personal history of Methicillin resistant Staphylococcus aureus infection; Z90.79 Acquired absence of other genital organ(s); Z85.46 Personal history of malignant neoplasm of prostate; Z80.9 Family history of malignant neoplasm, unspecified
CPT/HCPCS: 96365; 96361; 99285; 36415; 94640 ×2; 93005; 83880; 80053; 80048; 83690; 83735; 84484 ×2; 85025 ×2; 85610; 85730; 81003; 71046; 71260; 74177; G0378 ×2; S4990; J1956; Q9967

== ENCOUNTER → 2018-07-26 | Day surgery (SDC) | payer BC ==
[2018-07-15 15:58] VITALS: BMI 19.7
[~2018-07-26] MED LIST changes: +BUPIVACAIN-EPI 0.25%-1:200,000 30 ML VIAL SQ ONE; +GLYCOPYRROLATE 0.2 MG/ML 2 ML VIAL ONE; +HEPARIN SODIUM,PORCINE 5,000 UNIT/ML 1 ML VIAL SQ ONE; +HYDROcodone/APAP 7.5-325MG 1 EACH TAB PO ONE; -HYDROmorphone 0.5 MG/0.5 ML SYRINGE IVP PRN; +LACTATED RINGERS 1,000 ML IV SCH; +LIDOCAINE 1% INJ 10MG/ML (20 ML MDV) ONE; +MIDAZOLAM 2 MG/2 ML VIAL IVP ONE; +MORPHINE SULFATE 2 MG/ML SYRINGE IV PRN; +NEOSTIGMINE 1 MG/ML 10 ML VIAL ONE; +PROPOFOL 10 MG/ML 20 ML VIAL IV ONE; +ROCURONIUM BROMIDE 10 MG/ML 10 ML VIAL IV ONE; +SUCCINYLCHOLINE CHLORIDE 100 MG/5 ML SYR IV ONE; +ePHEDrine SULFATE/0.9% NACL/PF 50 MG/5 ML SYRINGE IV ONE; +fentaNYL (PF) 50 MCG/ML 2 ML AMP IVP ONE; +fentaNYL (PF) 50 MCG/ML 2 ML AMP ONE
[2018-07-26 08:52] LABS: Glucose,Whole Blood 107 mg/dL (75-99)
--- NOTE | 2018-07-26 08:57 | P.ONQ ---
Anesthesiology Proc Note - PNB - Peripheral Nerve Block Performed Left Transversus Abdominis Single Time Out Performed: Yes Procedure Start Time: 08:33 Indication: Acute Post-Operative Pain Sedation Type: Sedate with meaningful contact maintained Preparation: Sterile Prep Position: Supine Catheter: None Needle Types: Other (see comment) (Zachary) Needle Size: 100mm (4") Needle Gauge: 21 Technique: Ultrasound Injectate: 0.5% Ropivacaine (see comment for volume) (30cc) Blood Aspirated: No Pain Paresthesia on Injection Noted: No Resistance on Injection: Normal Events: Uneventful and Well Tolerated
--- NOTE | 2018-07-26 08:59 | P.GSHP ---
History of Present Illness H&P Date: 07/26/18 Chief Complaint: Left inguinal hernia This a 57-year-old male who presents today for left inguinal hernia repair. Patient's had complaints of pain left groin. Past Medical History Past Medical History: Cancer, COPD, GERD/Reflux, Hyperlipidemia, Osteoarthritis (OA), Pneumonia, Prostate Disorder Additional Past Medical History / Comment(s): HAD PNEUMONIA ABOUT 2 YRS AGO. Hx Prostate cancer. History of Any Multi-Drug Resistant Organisms: MRSA Date of last positivie culture/infection: 02/28/18 MDRO Source:: MRSA URINE Past Surgical History: Prostate Surgery Additional Past Surgical History / Comment(s): COLONOSCOPY. SX FOR PUNCTURED LUNG Past Anesthesia/Blood Transfusion Reactions: No Reported Reaction Past Psychological History: Anxiety Smoking Status: Current every day smoker Past Alcohol Use History: None Reported Additional Past Alcohol Use History / Comment(s): HAS SMOKED 1 PPD FOR PAST 35 YRS. Past Drug Use History: None Reported - Past Family History Father Family Medical History: Cancer Mother Family Medical History: Cancer Brother(s) Family Medical History: Cancer Additional Family Medical History / Comment(s): Prostate cancer. Medications and Allergies Home Medications Medication Instructions Recorded Confirmed Type Albuterol Nebulized [Ventolin 2.5 mg INHALATION RT-HS 06/04/16 07/15/18 History Nebulized] Albuterol Sulfate [Proventil Hfa] 1 - 2 puff INHALATION RT-Q6H PRN 06/04/16 History Atorvastatin [Lipitor] 40 mg PO HS 06/04/16 07/15/18 History Omeprazole [PriLOSEC] 20 mg PO AC-BRKFST 06/04/16 07/15/18 History Sertraline [Zoloft] 25 mg PO QAM 06/04/16 07/15/18 History Budesonide-Formot 160-4.5 Mcg 2 puff INHALATION RT-BID #1 inh 06/27/18 07/15/18 Rx [Symbicort 160-4.5 Mcg Inhaler] Ipratropium/Albuterol Sulfate 1 puff INHALATION TID #1 inhaler 06/27/18 Rx [Combivent Respimat Inhaler] Nicotine 14Mg/24Hr Patch [Habitrol] 1 patch TRANSDERM DAILY #30 patch 06/27/18 07/15/18 Rx Allergies Allergy/AdvReac Type Severity Reaction Status Date / Time No Known Allergies Allergy Verified 07/26/18 08:05 Surgical - Exam Vital Signs Temp Pulse Resp BP Pulse Ox 98.3 F 86 16 143/67 94 L 07/26/18 08:16 07/26/18 08:16 07/26/18 08:16 07/26/18 08:16 07/26/18 08:16 - General well developed, no distress - Eyes PERRL - ENT normal pinna - Neck no masses - Respiratory normal expansion - Cardiovascular Rhythm: regular - Abdomen Abdomen: soft, non tender Hernia: inguinal (Reducible left and left inguinal hernia) Results - Labs Abnormal Lab Results - Last 24 Hours (Table) 07/26/18 Range/Units 08:50 POC Glucose (mg/dL) 107 H (75-99) mg/dL Assessment and Plan Assessment: Left and one hernia. We'll perform laparoscopic robotic-assisted repair.
[2018-07-26 10:35] VITALS: TEMP 97.5
--- NOTE | 2018-07-26 10:36 | P.OP ---
Date of Procedure: 07/26/18 Preoperative Diagnosis: Left inguinal hernia Postoperative Diagnosis: Bilateral inguinal hernia Procedure(s) Performed: Laparoscopic robotic-assisted repair of bilateral inguinal hernia Anesthesia: TACOS Surgeon: Daryl Lee Estimated Blood Loss (ml): 5 Pathology: none sent Condition: stable Disposition: PACU Description of Procedure: The patient's placed on the operating table in the supine position. The patient received general anesthesia. The patient's abdomen was prepped and draped in usual sterile fashion. The skin was anesthetized 1% local Xylocaine at the incision sites. Using an 11 blade a skin incision was made at the umbilicus. The fascia was grasped with a [place] and then the peritoneal cavity was entered with the Veress needle. Position of the Veress needle was confirmed with a positive drop test. After adequate insufflation a 5 mm trocar was placed into the peritoneal cavity. The Laparoscope was placed the peritoneal cavity. And a robotic 8 mm trocar was placed in the right lateral position and then another 8 mm robotic trochars placed in the left lateral position. The original 5 mm trocar was exchanged for a 12 mm trocar. The patient was placed in reverse Trendelenburg and then the patient was docked to the robot. Next the peritoneum over top of the right inguinal hernia was incised and then using blunt and sharp dissection and electrocautery the hernia sac was dissected free from the floor of the inguinal canal. The hernia sac was completely reduced into the peritoneal cavity. And then using the Pro rice cleaning machine tender mesh the hernia was repaired. The peritoneum was then sutured with 20V lock suture. Next the peritoneum over top of the left inguinal hernia was incised and then using blunt and sharp dissection and electrocautery the hernia sac was dissected free from the floor of the inguinal canal. The hernia sac was completely reduced into the peritoneal cavity. And then using the Pro rice cleaning machine tender mesh the hernia was repaired. The peritoneum was then sutured with 20V lock suture. The patient was then undocked the robot. The needle was withdrawn from the peritoneal cavity. The umbilical trocar site was closed with 0 Ethibond suture. The skin was closed interrupted 3-0 Monocryl suture. Dermabond dressing was applied. Patient was sent to recovery in stable condition.
[2018-07-26] MEDS: HYDROmorphone 0.5 MG/0.5 ML SYRINGE IVP PRN ×2 (10:45→10:56)
[2018-07-26 11:04] VITALS: RESP 16
[2018-07-26 12:56] VITALS: BP 127/68; PULSE 64
== END ==
LOC: OR 07:50
PROVIDERS: ATTEND Surgery
DX: K40.20 Bilateral inguinal hernia, without obstruction or gangrene, not specified as recurrent (principal); K21.9 Gastro-esophageal reflux disease without esophagitis; J44.9 Chronic obstructive pulmonary disease, unspecified; E78.5 Hyperlipidemia, unspecified; M19.90 Unspecified osteoarthritis, unspecified site; Z85.46 Personal history of malignant neoplasm of prostate; Z86.14 Personal history of Methicillin resistant Staphylococcus aureus infection; F39 Unspecified mood [affective] disorder; F41.9 Anxiety disorder, unspecified; F17.210 Nicotine dependence, cigarettes, uncomplicated; Z80.42 Family history of malignant neoplasm of prostate; Z79.51 Long term (current) use of inhaled steroids; Z79.899 Other long term (current) drug therapy
CPT/HCPCS: 49650; S2900; 64486

== ENCOUNTER → 2019-07-21 | Outpatient (CLI) | payer BC | END | disposition home or self-care (01) | LOC: CPPFTMAIN 13:32 | PROVIDERS: ATTEND Internal Medicine Critical Care Medicine | DX: J44.9 Chronic obstructive pulmonary disease, unspecified (principal) | CPT/HCPCS: 94060; 94726; 94729 ==

== ENCOUNTER 2023-10-08 05:52 | Inpatient (IN) | payer OTHER ==
[2023-10-08] MEDS: SODIUM CHLORIDE 0.9% 1,000 ML IV STA (06:09)
[2023-10-08] MEDS: IPRATROPIUM-ALBUTEROL 3 ML NEB INHALATION STA ×2 (06:10→08:13)
--- NOTE | 2023-10-08 06:24 | XR ---
EXAMINATION TYPE: XR chest 1V portable DATE OF EXAM: 10/08/2023 COMPARISON: Chest CT and chest x-ray August 24, 2022 HISTORY: History of COPD with COVID positive one week ago with increasing shortness of breath TECHNIQUE: Single frontal view of the chest is obtained. FINDINGS: Background chronic emphysematous change redemonstrated. Right upper lung focal scarring ag ain seen. No new suspicious focal airspace opacity, pleural effusion, or pneumothorax is seen bilater ally. The cardiac silhouette size is stable and within normal limits. The osseous structures are in tact. IMPRESSION: Chronic changes without acute pulmonary process.
--- NOTE | 2023-10-08 06:30 | ED ---
SOB HPI - General Chief Complaint: Shortness of Breath Stated Complaint: OLIVER Time Seen by Provider: 10/08/23 05:54 Source: EMS, RN notes reviewed, old records reviewed Mode of arrival: EMS Limitations: no limitations - History of Present Illness Initial Comments: This is a 62-year-old male to ER for evaluation of severe COPD asthma with exacerbation. Patient was post be on home oxygen and was found to get to the fire department with severely low pulse oxygenation in the 60s. Severe dyspnea shortness of breath although improving on transport to the hospital with getting breathing treatments. Patient complains of severe shortness of breath here in the ER with recent diagnosis of coronavirus MD Complaint: shortness of breath, cough, chest pain, "asthma attack", anxiety -: days(s) Severity: severe Severity scale (1-10): 9 Consistency: constant Improves With: nothing Worsens With: exertion, movement Known History Of: COPD, asthma Context: recent URI, recent illness Associated Symptoms: chest pain, cough, sputum production - Related Data Home Medications Medication Instructions Recorded Confirmed Albuterol Sulfate [Proventil Hfa] 2 puff INHALATION RT-Q6H PRN 06/04/16 10/08/23 Atorvastatin [Lipitor] 40 mg PO HS 06/04/16 10/08/23 Omeprazole [PriLOSEC] 20 mg PO DAILY 06/04/16 10/08/23 Albuterol Nebulized [Ventolin 2.5 mg INHALATION RT-TID PRN 10/08/23 10/08/23 Nebulized] Mometasone/Formoterol [Dulera 200 2 puff INHALATION RT-BID 10/08/23 10/08/23 Mcg-5 Mcg Inhaler] Sertraline [Zoloft] 25 mg PO DAILY 10/08/23 10/08/23 Tiotropium 2.5 Mcg/Puff [Spiriva 2 spray INHALATION RT-DAILY 10/08/23 10/08/23 Respimat 2.5 Mcg] Allergies Allergy/AdvReac Type Severity Reaction Status Date / Time No Known Allergies Allergy Verified 10/08/23 07:06 Review of Systems ROS Statement: Those systems with pertinent positive or pertinent negative responses have been documented in the HPI. ROS Other: All systems not noted in ROS Statement are negative. Past Medical History Past Medical History: Cancer, COPD, GERD/Reflux, Hyperlipidemia, Osteoarthritis (OA), Pneumonia, Prostate Disorder Additional Past Medical History / Comment(s): Hx Prostate cancer, bilateral hand fx in past History of Any Multi-Drug Resistant Organisms: MRSA Date of last positivie culture/infection: 02/28/18 MDRO Source:: MRSA URINE Past Surgical History: Hernia Repair, Prostate Surgery Additional Past Surgical History / Comment(s): colonoscopy, surgery for punctured lung, Past Anesthesia/Blood Transfusion Reactions: No Reported Reaction Past Psychological History: Anxiety, Depression Smoking Status: Current every day smoker Past Alcohol Use History: None Reported Past Drug Use History: None Reported - Past Family History Father Family Medical History: Cancer Additional Family Medical History / Comment(s): ; prostate CA Mother Family Medical History: Cancer Additional Family Medical History / Comment(s): , lung CA Brother(s) Family Medical History: Cancer Additional Family Medical History / Comment(s): Prostate cancer, . General Exam Limitations: no limitations General appearance: alert, anxious, in distress Head exam: Present: atraumatic, normocephalic, normal inspection Eye exam: Present: normal appearance, PERRL, EOMI. Absent: scleral icterus, conjunctival injection, periorbital swelling ENT exam: Present: normal exam, mucous membranes moist Neck exam: Present: normal inspection. Absent: tenderness, meningismus, lymphadenopathy Respiratory exam: Present: respiratory distress, wheezes, accessory muscle use, decreased breath sounds, prolonged expiratory. Absent: rales, rhonchi, stridor Cardiovascular Exam: Present: regular rate, normal rhythm, normal heart sounds. Absent: systolic murmur, diastolic murmur, rubs, gallop, clicks GI/Abdominal exam: Present: soft, normal bowel sounds. Absent: distended, tenderness, guarding, rebound, rigid Extremities exam: Present: normal inspection, full ROM, normal capillary refill. Absent: tenderness, pedal edema, joint swelling, calf tenderness Back exam: Present: normal inspection Neurological exam: Present: alert, oriented X3, CN II-XII intact Psychiatric exam: Present: normal affect, normal mood Skin exam: Present: warm, dry, intact, normal color. Absent: rash Course Vital Signs 10/08/23 10/08/23 10/08/23 05:56 06:12 06:16 Temperature 98.8 F Pulse Rate 94 96 99 Pulse Rate [ Pulse Oximetery ] Respiratory 24 Rate Blood Pressure 101/59 Blood Pressure [Left Arm] O2 Sat by Pulse 92 L Oximetry 10/08/23 10/08/23 10/08/23 06:42 06:45 07:35 Temperature Pulse Rate 92 93 90 Pulse Rate [ Pulse Oximetery ] Respiratory 22 22 18 Rate Blood Pressure 111/62 111/62 122/65 Blood Pressure [Left Arm] O2 Sat by Pulse 94 L 98 90 L Oximetry 10/08/23 10/08/23 10/08/23 08:13 08:24 09:54 Temperature Pulse Rate 85 88 74 Pulse Rate [ Pulse Oximetery ] Respiratory 22 Rate Blood Pressure 116/63 Blood Pressure [Left Arm] O2 Sat by Pulse 91 L 96 Oximetry 10/08/23 10:32 Temperature 98.2 F Pulse Rate Pulse Rate [ 73 Pulse Oximetery ] Respiratory 17 Rate Blood Pressure Blood Pressure 113/67 [Left Arm] O2 Sat by Pulse 96 Oximetry - Reevaluation(s) Reevaluation #1: 10/08/23 06:29 Records reviewed Reevaluation #2: 10/08/23 06:49 Patient is showing no improvement here in the ER Reevaluation #3: 10/08/23 06:49 Patient informed of results and questions answered Reevaluation #4: Was pt. sent in by a medical professional or institution (Dr. PA, [employer], urgent care, hospital, or intermediate...) When possible be specific @ -no Did you speak to anyone other than the patient for history (EMS, parent, family, police, friend...)? What history was obtained from this source @ -no Did you review nursing and triage notes (agree or disagree)? Why? @ -agree Are old charts reviewed (outside hosp., previous admission, EMS record, old EKG, old radiological studies, urgent care reports/EKG's, intermediate records)? Report findings @ -yes Differential Diagnosis (chest pain, altered mental status, abdominal pain women, abdominal pain men, vaginal bleeding, weakness, fever, dyspnea, syncope, headache, dizziness, GI bleed, back pain, seizure, CVA, palpatations, mental health, musculoskeletal)? @ -prior EKG interpreted by me (3pts min.). @ -yes X-rays interpreted by me (1pt min.). @ -yes negative for acute disease CT interpreted by me (1pt min.). @ -no U/S interpreted by me (1pt. min.). @ -no What testing was considered but not performed or refused? (CT, X-rays, U/S, labs)? Why? @ -none What meds were considered but not given or refused? Why? @ -none Did you discuss the management of the patient with other professionals (p [facility] i.e. , PA, [employer], lab, RT, psych nurse, social media designer, nuclear medicine chief technologist, teacher, staff electronic warfare officer, counseling case manager)? Give summary @ -no Was smoking cessation discussed for >3mins.? @ -no Was critical care preformed (if so, how long)? @ -yes31 Were there social determinants of health that impacted care today? How? (Homelessness, low income, unemployed, alcoholism, drug addiction, transportation, low edu. Level, literacy, decrease access to med. care, long-term, rehab)? @ -none Was there de-escalation of care discussed even if they declined (Discuss DNR or withdrawal of care, Hospice)? DNR status @ -no What co-morbidities impacted this encounter? (DM, HTN, Smoking, COPD, CAD, Cancer, CVA, ARF, Chemo, Hep., AIDS, mental health diagnosis, sleep apnea, morbid obesity)? @ -none Was patient admitted / discharged? Hospital course, mention meds given and route, prescriptions, significant lab abnormalities, going to OR and other pertinent info. @ - 62 male to ER for evaluation of respiratory failure hypoxic respiratory failure with COPD. Likely recent diagnosis of coronavirus but patient did not get tested. Family numbers to get tested and did have symptoms. Patient presents today for worsening symptoms of COPD and found to have oxygen in the 60s on arrival to [facility] prior to transport Admitted Undiagnosed new problem with uncertain prognosis? @ -no Drug Therapy requiring intensive monitoring for toxicity (Heparin, Nitro, Insulin, Cardizem)? @ -no Were any procedures done? @ -no Diagnosis/symptom? @ -COPD with hypoxia and respiratory failure Acute, or Chronic, or Acute on Chronic? @ -Acute Uncomplicated (without systemic symptoms) or Complicated (systemic symptoms)? @ -Complicated Side effects of treatment? @ -no Exacerbation, Progression, or Severe Exacerbation? @ -exacerbation Poses a threat to life or bodily function? How? (Chest pain, [place], [place], pneumonia, PE, COPD, DKA, ARF, appy, cholecystitis, CVA, Diverticulitis, Homicidal, Suicidal, threat to staff... and all critical care pts) @ -yes with significant hypoxic respiratory failure Reevaluation #5: Differential Dyspnea: Coronary syndrome, arrhythmia, tamponade, asthma, COPD, pulmonary embolism, pneumonia, pneumothorax, pulmonary effusion, anaphylaxis, diabetic ketoacidosis, flailed chest, pulmonary contusion, diaphragmatic rupture, anemia, neuromuscular, this is not meant to be an all-inclusive list. - Consultations Consultation #1: Spoke with [facility] who agrees to admit this patient Medical Decision Making - Medical Decision Making 62 male to ER for evaluation of respiratory failure hypoxic respiratory failure with COPD. Likely recent diagnosis of coronavirus but patient did not get tested. Family numbers to get tested and did have symptoms. Patient presents today for worsening symptoms of COPD and found to have oxygen in the 60s on arrival to [facility] prior to transport - Lab Data Result diagrams: 10/08/23 06:07 10/08/23 06:07 Lab Results 10/08/23 10/08/23 10/08/23 Range/Units 06:07 06:07 06:07 WBC 13.9 H (3.8-10.6) k/uL RBC 4.56 (4.30-5.90) m/uL Hgb 14.3 (13.0-17.5) gm/dL Hct 45.8 (39.0-53.0) % MCV 100.4 H (80.0-100.0) fL MCH 31.3 (25.0-35.0) pg MCHC 31.1 (31.0-37.0) g/dL RDW 12.3 (11.5-15.5) % Plt Count 223 (150-450) k/uL MPV 7.8 Neutrophils % 86 % Lymphocytes % 5 % Monocytes % 6 % Eosinophils % 2 % Basophils % 0 % Neutrophils # 11.9 H (1.3-7.7) k/uL Lymphocytes # 0.7 L (1.0-4.8) k/uL Monocytes # 0.8 (0-1.0) k/uL Eosinophils # 0.3 (0-0.7) k/uL Basophils # 0.1 (0-0.2) k/uL PT 10.9 (10.0-12.5) sec INR 1.0 (<1.2) APTT 25.3 (22.0-30.0) sec Sodium 137 (137-145) mmol/L Potassium 4.8 (3.5-5.1) mmol/L Chloride 107 (98-107) mmol/L Carbon Dioxide 23 (22-30) mmol/L Anion Gap 7 mmol/L BUN 33 H (9-20) mg/dL Creatinine 0.67 (0.66-1.25) mg/dL Est GFR (CKD-EPI)AfAm >90 (>60 ml/min/1.73 sqM) Est GFR (CKD-EPI)NonAf >90 (>60 ml/min/1.73 sqM) Glucose 106 H (74-99) mg/dL Plasma Lactic Acid Jarred (0.7-2.0) mmol/L Calcium 8.8 (8.4-10.2) mg/dL Magnesium 1.7 (1.6-2.3) mg/dL Total Bilirubin 1.0 (0.2-1.3) mg/dL AST 39 (17-59) U/L ALT 27 (4-49) U/L Alkaline Phosphatase 59 (38-126) U/L NT-Pro-B Natriuret Pep 146 pg/mL Total Protein 6.8 (6.3-8.2) g/dL Albumin 3.8 (3.5-5.0) g/dL 10/08/23 Range/Units 06:07 WBC (3.8-10.6) k/uL RBC (4.30-5.90) m/uL Hgb (13.0-17.5) gm/dL Hct (39.0-53.0) % MCV (80.0-100.0) fL MCH (25.0-35.0) pg MCHC (31.0-37.0) g/dL RDW (11.5-15.5) % Plt Count (150-450) k/uL MPV Neutrophils % % Lymphocytes % % Monocytes % % Eosinophils % % Basophils % % Neutrophils # (1.3-7.7) k/uL Lymphocytes # (1.0-4.8) k/uL Monocytes # (0-1.0) k/uL Eosinophils # (0-0.7) k/uL Basophils # (0-0.2) k/uL PT (10.0-12.5) sec INR (<1.2) APTT (22.0-30.0) sec Sodium (137-145) mmol/L Potassium (3.5-5.1) mmol/L Chloride (98-107) mmol/L Carbon Dioxide (22-30) mmol/L Anion Gap mmol/L BUN (9-20) mg/dL Creatinine (0.66-1.25) mg/dL Est GFR (CKD-EPI)AfAm (>60 ml/min/1.73 sqM) Est GFR (CKD-EPI)NonAf (>60 ml/min/1.73 sqM) Glucose (74-99) mg/dL Plasma Lactic Acid Jarred 1.3 (0.7-2.0) mmol/L Calcium (8.4-10.2) mg/dL Magnesium (1.6-2.3) mg/dL Total Bilirubin (0.2-1.3) mg/dL AST (17-59) U/L ALT (4-49) U/L Alkaline Phosphatase (38-126) U/L NT-Pro-B Natriuret Pep pg/mL Total Protein (6.3-8.2) g/dL Albumin (3.5-5.0) g/dL - EKG Data -: EKG Interpreted by Me (EKG is sinus 95 CT 139 QRS 109 QTc 394) - Radiology Data Radiology results: report reviewed (Chest x-ray is negative for acute disease), image reviewed Critical Care Time Critical Care Time: Yes Total Critical Care Time: 31 Disposition Clinical Impression: COPD exacerbation, Asthma with acute exacerbation, Acute respiratory failure, Hypoxia, Chest pain Disposition: ADMITTED IP TO THIS [facility] Condition: Serious Is patient prescribed a controlled substance at d/c from ED?: No Time of Disposition: 06:45
[2023-10-08 06:33] LABS: Basophils # (A) 0.1 k/uL (0-0.2); Basophils % (A) 0 %; Eosinophils # (A) 0.3 k/uL (0-0.7); Eosinophils % (A) 2 %; HCT 45.8 % (39.0-53.0); HGB 14.3 gm/dL (13.0-17.5); Lymphocytes # (A) 0.7 k/uL (1.0-4.8); Lymphocytes % (A) 5 %; MCH 31.3 pg (25.0-35.0); MCHC 31.1 g/dL (31.0-37.0); MCV 100.4 fL (80.0-100.0); Mean Platelet Volume 7.8; Monocytes # (A) 0.8 k/uL (0-1.0); Monocytes % (A) 6 %; Neutrophils # (A) 11.9 k/uL (1.3-7.7); Neutrophils % (A) 86 %; Platelet Count 223 k/uL (150-450); RBC 4.56 m/uL (4.30-5.90); RDW 12.3 % (11.5-15.5); WBC 13.9 k/uL (3.8-10.6)
[2023-10-08 06:46] LABS: ALT 27 U/L (4-49); African American GFR (CKD) >90 (>60 ml/min/1.73 sqM); Anion Gap 7 mmol/L; Blood Urea Nitrogen 33 mg/dL (9-20); Calcium 8.8 mg/dL (8.4-10.2); Carbon Dioxide 23 mmol/L (22-30); Chloride 107 mmol/L (98-107); Glucose 106 mg/dL (74-99); Non-African American GFR(CKD) >90 (>60 ml/min/1.73 sqM); Sodium 137 mmol/L (137-145)
[2023-10-08] MEDS ORDERED: NALOXONE 0.4 MG/ML 1 ML VIAL IV PRN (06:46)
[2023-10-08] MEDS ORDERED: ALBUTEROL NEBULIZED 2.5 MG/3 ML INHALATION PRN (06:46)
[2023-10-08] MEDS ORDERED: ONDANSETRON 4 MG/2 ML VIAL IVP PRN (06:46)
[2023-10-08] MEDS: SODIUM CHLORIDE 0.9% 1,000 ML IV SCH (06:50)
[2023-10-08 06:54] LABS: NT-Pro-B-Type Natriuretic Pept 146 pg/mL; Partial Thromboplastin Time 25.3 sec (22.0-30.0); Prothrombin Time 10.9 sec (10.0-12.5)
[2023-10-08] MEDS: methylPREDNISolone SOD SUCCI 125 MG/2 ML VIAL IV STA (06:55)
[2023-10-08] MEDS: HYDROmorphone 1 MG/ML 1 ML SYRINGE IVP STA (06:56)
[2023-10-08] MEDS: methylPREDNISolone SOD SUCCI 125 MG/2 ML VIAL IV SCH ×2 (07:04→12:08)
[2023-10-08 07:07] LABS: AST 39 U/L (17-59); Albumin 3.8 g/dL (3.5-5.0); Alkaline Phosphatase 59 U/L (38-126); Magnesium 1.7 mg/dL (1.6-2.3); Potassium 4.8 mmol/L (3.5-5.1); Total Protein 6.8 g/dL (6.3-8.2)
--- NOTE | 2023-10-08 11:36 | P.HPIM ---
History of Present Illness Patient is 62-year-old female came in with start shortness of breath patient on 4 L of oxygen in ER presently on 2 L of oxygen patient does wear 2 L of oxygen patient continues to smoke does have history of COPD chest x-ray is consistent with COPD without any acute changes patient was started on systemic steroids and inpatient treatments with improvement. Patient respiratory status is at his baseline but patient feels quite weak does not feel like he is at his baseline does have some wheeze diminished air entry to bilateral lung horne. Patient was complaining of cough without any sputum production. Many family members at home were diagnosed with flu but patient tested negative for influenza here. REVIEW OF SYSTEMS: CONSTITUTIONAL: No fever, no malaise, no fatigue. HEENT: No recent visual problems or hearing problems. Denied any sore throat. CARDIOVASCULAR: No chest pain, orthopnea, PND, no palpitations, no syncope. PULMONARY: As mentioned in HPI. GASTROINTESTINAL: No diarrhea, no nausea, no vomiting, no abdominal pain. NEUROLOGICAL: No headaches, no weakness, no numbness. HEMATOLOGICAL: Denies any bleeding or petechiae. GENITOURINARY: Denies any burning micturition, frequency, or urgency. MUSCULOSKELETAL/RHEUMATOLOGICAL: Denies any joint pain, swelling, or any muscle pain. ENDOCRINE: Denies any polyuria or polydipsia. The rest of the 14-point review of systems is negative. PHYSICAL EXAMINATION: GENERAL: The patient is alert and oriented x3, not in any acute distress. Thin built male HEENT: Pupils are round and equally reacting to light. EOMI. No scleral icterus. No conjunctival pallor. Normocephalic, atraumatic. No pharyngeal erythema. No thyromegaly. CARDIOVASCULAR: S1 and S2 present. No murmurs, rubs, or gallops. PULMONARY: Diminished air entry with mild expiratory wheezing ABDOMEN: Soft, nontender, nondistended, normoactive bowel sounds. No palpable organomegaly. MUSCULOSKELETAL: No joint swelling or deformity. EXTREMITIES: No cyanosis, clubbing, or pedal edema. NEUROLOGICAL: Gross neurological examination did not reveal any focal deficits. SKIN: No rashes. Assessment and plan -Acute on chronic hypoxic and hypercapnic respiratory failure: Secondary to COPD exacerbation continue systemic steroids and nasal treatments no evidence of pneumonia at this time -Leukocytosis reactive secondary to COPD -Continued smoking and nicotine abuse: Counseling was provided -Cachexia secondary to smoking and COPD -Hyperlipidemia continue with Lipitor -Depression continue with sertraline -Generalized deconditioning: Physical therapy and Occupational Therapy evaluation DVT prophylaxis: Low-dose Lovenox Past Medical History Past Medical History: Cancer, COPD, GERD/Reflux, Hyperlipidemia, Osteoarthritis (OA), Pneumonia, Prostate Disorder Additional Past Medical History / Comment(s): Hx Prostate cancer, bilateral hand fx in past History of Any Multi-Drug Resistant Organisms: MRSA Date of last positivie culture/infection: 02/28/18 MDRO Source:: MRSA URINE Past Surgical History: Hernia Repair, Prostate Surgery Additional Past Surgical History / Comment(s): colonoscopy, surgery for punctured lung, Past Anesthesia/Blood Transfusion Reactions: No Reported Reaction Past Psychological History: Anxiety, Depression Smoking Status: Current every day smoker Past Alcohol Use History: None Reported Additional Past Alcohol Use History / Comment(s): smokes 1-1.5 PPD since age 16. Past Drug Use History: None Reported - Past Family History Father Family Medical History: Cancer Additional Family Medical History / Comment(s): ; prostate CA Mother Family Medical History: Cancer Additional Family Medical History / Comment(s): , lung CA Brother(s) Family Medical History: Cancer Additional Family Medical History / Comment(s): Prostate cancer, . Medications and Allergies Home Medications Medication Instructions Recorded Confirmed Type Albuterol Sulfate [Proventil Hfa] 2 puff INHALATION RT-Q6H PRN 06/04/16 10/08/23 History Atorvastatin [Lipitor] 40 mg PO HS 06/04/16 10/08/23 History Omeprazole [PriLOSEC] 20 mg PO DAILY 06/04/16 10/08/23 History Albuterol Nebulized [Ventolin 2.5 mg INHALATION RT-TID PRN 10/08/23 10/08/23 History Nebulized] Mometasone/Formoterol [Dulera 200 2 puff INHALATION RT-BID 10/08/23 10/08/23 History Mcg-5 Mcg Inhaler] Sertraline [Zoloft] 25 mg PO DAILY 10/08/23 10/08/23 History Tiotropium 2.5 Mcg/Puff [Spiriva 2 spray INHALATION RT-DAILY 10/08/23 10/08/23 History Respimat 2.5 Mcg] Allergies Allergy/AdvReac Type Severity Reaction Status Date / Time No Known Allergies Allergy Verified 10/08/23 07:06 Physical Exam Vitals: Vital Signs Temp Pulse Pulse Resp BP BP Pulse Ox 10/08/23 10:32 98.2 F 73 17 113/67 96 10/08/23 09:54 74 22 116/63 96 10/08/23 08:24 88 10/08/23 08:13 85 91 L 10/08/23 07:35 90 18 122/65 90 L 10/08/23 06:45 93 22 111/62 98 10/08/23 06:42 92 22 111/62 94 L 10/08/23 06:16 99 10/08/23 06:12 96 10/08/23 05:56 98.8 F 94 24 101/59 92 L Intake and Output 10/07/23 10/08/23 10/08/23 22:59 06:59 14:59 Other: Weight 48.988 kg 48.988 kg Results CBC & Chem 7: 10/08/23 06:07 10/08/23 06:07 Labs: Abnormal Lab Results - Last 24 Hours (Table) 10/08/23 10/08/23 Range/Units 06:07 06:07 WBC 13.9 H (3.8-10.6) k/uL MCV 100.4 H (80.0-100.0) fL Neutrophils # 11.9 H (1.3-7.7) k/uL Lymphocytes # 0.7 L (1.0-4.8) k/uL BUN 33 H (9-20) mg/dL Glucose 106 H (74-99) mg/dL Thrombosis Risk Factor Assmnt - Choose All That Apply Any of the Below Risk Factors Present?: No Other Risk Factors: Yes Each Risk Factor Represents 2 Points: Age 61-74 years Thrombosis Risk Factor Assessment Total Risk Factor Score: 2 Thrombosis Risk Factor Assessment Level: Low Risk
[2023-10-08] MEDS: ALBUTEROL NEBULIZED 2.5 MG/3 ML INHALATION SCH (12:01)
[2023-10-08] MEDS: PANTOPRAZOLE 40 MG TABLET PO SCH (12:08)
[2023-10-08] MEDS: ENOXAPARIN 40 MG/0.4 ML SYRINGE SQ SCH (12:08)
--- NOTE | 2023-10-08 16:35 | P.CNPUL ---
History of Present Illness Consult date: 10/08/23 Reason for consult: dyspnea, COPD History of present illness: 62-year-old male patient with advanced COPD, presenting to the hospital because of worsening shortness of breath. The patient is known to have advanced COPD patient is a chronic smoker and continues to smoke around half pack of cigarettes a day. He has increased cough and congestion and chest tightness and wheezing. His baseline performance and functional status extremely poor and the patient is severely cachectic with a body mass index of 16.9. He has been using a combination of Dulera and Spiriva on an outpatient basis and he also has a nebulizer and utilizes albuterol rescue administrate basis. He has home O2. His white cell count at 13.9 with hemoglobin 14.3 and a platelet count of 223 normal coagulation profile. The viral panel has been negative. Electrolytes are both within normal limits. Troponins are negative. proBNP level is not elevated. The patient is currently on a combination of bronchodilators and steroids. He is also on IV fluids at 75 cc an hour normal saline. O no evidence of any CO2 narcosis. Significant limitation in exercise capacity as the patient gets short of breath upon walking around 5 to 10 feet at baseline. Diminished appetite. His chest x-ray shows no evidence of any cardiopulmonary process and shows advanced COPD. The previous CAT scan of the chest that was done on 08/24/2022 showed a thickening adjacent to the major fissure on the right. This was considered to be an area of atelectasis/pneumonia. The patient in a ddition has advanced COPD. Review of Systems CONSTITUTIONAL: No fever, no malaise, no fatigue. Severe limitation exercise capacity and shortness of breath with minimal amount of activity. Ongoing weight loss. Ongoing smoking. HEENT: No recent visual problems or hearing problems. Denied any sore throat. CARDIOVASCULAR: No chest pain, orthopnea, PND, no palpitations, no syncope. PULMONARY: As mentioned in HPI. Chronic cough congestion chest tightness and wheeze with interval worsening as discussed GASTROINTESTINAL: No diarrhea, no nausea, no vomiting, no abdominal pain. NEUROLOGICAL: No headaches, no weakness, no numbness. HEMATOLOGICAL: Denies any bleeding or petechiae. GENITOURINARY: Denies any burning micturition, frequency, or urgency. MUSCULOSKELETAL/RHEUMATOLOGICAL: Denies any joint pain, swelling, or any muscle pain. ENDOCRINE: Denies any polyuria or polydipsia. The rest of the 14-point review of systems is negative. Past Medical History Past Medical History: Cancer, COPD, GERD/Reflux, Hyperlipidemia, Osteoarthritis (OA), Pneumonia, Prostate Disorder Additional Past Medical History / Comment(s): Hx Prostate cancer, bilateral hand fx in past History of Any Multi-Drug Resistant Organisms: MRSA Date of last positivie culture/infection: 02/28/18 MDRO Source:: MRSA URINE Past Surgical History: Hernia Repair, Prostate Surgery Additional Past Surgical History / Comment(s): colonoscopy, surgery for punctured lung, Past Anesthesia/Blood Transfusion Reactions: No Reported Reaction Past Psychological History: Anxiety, Depression Smoking Status: Current every day smoker Past Alcohol Use History: None Reported Additional Past Alcohol Use History / Comment(s): smokes 1-1.5 PPD since age 16. Past Drug Use History: None Reported - Past Family History Father Family Medical History: Cancer Additional Family Medical History / Comment(s): ; prostate CA Mother Family Medical History: Cancer Additional Family Medical History / Comment(s): , lung CA Brother(s) Family Medical History: Cancer Additional Family Medical History / Comment(s): Prostate cancer, . Medications and Allergies Home Medications Medication Instructions Recorded Confirmed Type Albuterol Sulfate [Proventil Hfa] 2 puff INHALATION RT-Q6H PRN 06/04/16 10/08/23 History Atorvastatin [Lipitor] 40 mg PO HS 06/04/16 10/08/23 History Omeprazole [PriLOSEC] 20 mg PO DAILY 06/04/16 10/08/23 History Albuterol Nebulized [Ventolin 2.5 mg INHALATION RT-TID PRN 10/08/23 10/08/23 History Nebulized] Mometasone/Formoterol [Dulera 200 2 puff INHALATION RT-BID 10/08/23 10/08/23 History Mcg-5 Mcg Inhaler] Sertraline [Zoloft] 25 mg PO DAILY 10/08/23 10/08/23 History Tiotropium 2.5 Mcg/Puff [Spiriva 2 spray INHALATION RT-DAILY 10/08/23 10/08/23 History Respimat 2.5 Mcg] Allergies Allergy/AdvReac Type Severity Reaction Status Date / Time No Known Allergies Allergy Verified 10/08/23 07:06 Physical Exam Vitals: Vital Signs Temp Pulse Pulse Resp BP BP Pulse Ox 10/08/23 16:02 76 10/08/23 15:51 72 10/08/23 13:28 98.0 F 75 17 101/60 99 10/08/23 12:11 84 10/08/23 12:01 80 10/08/23 10:32 98.2 F 73 17 113/67 96 10/08/23 09:54 74 22 116/63 96 10/08/23 08:24 88 10/08/23 08:13 85 91 L 10/08/23 07:35 90 18 122/65 90 L 10/08/23 06:45 93 22 111/62 98 10/08/23 06:42 92 22 111/62 94 L 10/08/23 06:16 99 10/08/23 06:12 96 10/08/23 05:56 98.8 F 94 24 101/59 92 L Intake and Output 10/08/23 10/08/23 10/08/23 06:59 14:59 22:59 Other: Weight 48.988 kg 48.988 kg Thin, cachectic, in mild degree of respite distress at rest. The patient has a barrel chest currently on 2 L of oxygen by nasal cannula Head exam was generally normal. There was no scleral icterus or corneal arcus. Mucous membranes were moist. Neck was supple and without jugular venous distension, thyromegaly, or carotid bruits. Carotids were easily palpable bilaterally. There was no adenopathy. Lung sounds are markedly diminished and the patient has diminished breath sound lung base bilaterally the patient is exhalation limitation and expiratory wheezes heard throughout the lung horne bilaterally. Cardiac exam revealed the PMI to be normally situated and sized. The rhythm was regular and no extrasystoles were noted during several minutes of auscultation. The first and second heart sounds were normal and physiologic splitting of the second heart sound was noted. There were no murmurs, rubs, clicks, or gallops. Heart sounds are distant. Abdominal exam revealed normal bowel sounds. The abdomen was soft, non-tender, and without masses, organomegaly, or appreciable enlargement of the abdominal aorta. Examination of the extremities revealed easily palpable radial, femoral and p edal pulses. There was no cyanosis, clubbing or edema. Examination of the skin revealed no evidence of significant rashes, suspicious appearing nevi or other concerning lesions. Neurologically, the patient is awake and alert and the patient does not have any focal neurological deficit. Cranial nerves are essentially intact. Results - Laboratory Findings CBC and BMP: 10/08/23 06:07 10/08/23 06:07 PT/INR, D-dimer PT 10.9 sec (10.0-12.5) 10/08/23 06:07 INR 1.0 (<1.2) 10/08/23 06:07 Abnormal lab findings: Abnormal Labs 10/08/23 10/08/23 06:07 06:07 WBC 13.9 H MCV 100.4 H Neutrophils # 11.9 H Lymphocytes # 0.7 L BUN 33 H Glucose 106 H - Diagnostic Findings Chest x-ray: image reviewed Assessment and Plan Plan: Acute exacerbation of chronic COPD with secondary shortness of breath. Chest x- ray free of acute pulmonary infiltrates. Scans been negative. He is a chronic smoker continues to smoke half to 1 pack of cigarettes on a daily basis. Chronic hypoxic respiratory failure currently on 2 L of oxygen by nasal cannula Advanced COPD, maintained on a combination of Dulera and Spiriva on an outpatient basis and the patient has had previous exacerbations requiring hospitalization. He has been utilizing albuterol nebulized treatments [id number] Chronic weight loss and cachexia and a body mass index of 16 History of prostate cancer Hyperlipidemia Depression Generalized deconditioning Plan Titrate oxygen flow to maintain saturation above 90% Immediate smoking cessation and smoking cessation counseling was done Continue with DuoNeb nebulized treatments [id number] IV Solu-Medrol 60 mg for 6 hours Sputum Gram stain and culture Reasonable to cover this patient with empiric antibiotics with Zithromax due to his advanced COPD. This will be done pending further sputum cultures. Dietary advice was given Prognosis poor based on the presence of advanced lung disease. Will continue to follow.
[2023-10-08] MEDS: AZITHROMYCIN 500 MG TAB PO SCH (17:33)
[2023-10-08] MEDS: NICOTINE 21MG/24HR PATCH TRANSDERM SCH (18:09)
[2023-10-08] MEDS ORDERED: methylPREDNISolone SOD SUCCI 40 MG/ML 1 ML VIAL IV SCH (21:00)
[2023-10-08] MEDS: SYMBICORT 160-4.5 MCG INHALER INHALATION SCH (21:11)
[2023-10-08] MEDS: ATORVASTATIN 40 MG TAB PO SCH (22:58)
[2023-10-08] MEDS: MORPHINE SULFATE 4 MG/ML SYRINGE IV PRN (22:58)
[2023-10-09] MEDS: SERTRALINE 25 MG TAB PO SCH (08:56)
[2023-10-09] MEDS: IPRATROPIUM 0.5 MG/2.5 ML NEBU INHALATION SCH (09:28)
[2023-10-09 13:39] LABS: Basophils # (A) 0.01 X 10*3/uL (0.00-0.10); Basophils % (A) 0.1 %; Eosinophils # (A) 0.01 X 10*3/uL (0.04-0.35); Eosinophils % (A) 0.1 %; HCT 42.2 % (39.6-50.0); HGB 13.5 g/dL (13.0-17.0); Lymphocytes # (A) 0.54 X 10*3/uL (0.90-5.00); MCH 31.5 pg (27.0-32.0); MCV 98.6 FL (80.0-97.0); Monocytes # (A) 0.54 X 10*3/uL (0.20-1.00); NRBC Per 100 WBC 0 X 10*3/uL (0.00-0.01); Neutrophils # (A) 12.32 X 10*3/uL (1.80-7.70); Neutrophils % (A) 91.4 %; Platelet Count 263 X 10*3/uL (140-440); RBC 4.28 X 10*6/uL (4.40-5.60); RDW 12.3 % (11.5-14.5); WBC 13.48 X 10*3/uL (4.50-10.00)
[2023-10-09 14:06] LABS: ALT 22 U/L (10-49); AST 14 U/L (14-35); Albumin 3.7 g/dL (3.8-4.9); Albumin/Globulin Ratio 1.61 Ratio (1.60-3.17); Alkaline Phosphatase 76 U/L (41-126); Blood Urea Nitrogen 20.3 mg/dL (9.0-27.0); Calcium 9.6 mg/dL (8.7-10.3); Carbon Dioxide 25.9 mmol/L (21.6-31.8); Chloride 106 mmol/L (96-109); Globulin 2.3 g/dL (1.6-3.3); Glucose 132 mg/dL (70-110); Magnesium 1.8 mg/dL (1.5-2.4); Phosphorus 2.8 mg/dL (2.4-5.1); Potassium 4.6 mmol/L (3.5-5.5); Sodium 141 mmol/L (135-145); Total Bilirubin 0.3 mg/dL (0.3-1.2)
--- NOTE | 2023-10-09 14:09 | DS ---
DISCHARGE SUMMARY FINAL DIAGNOSES: 1. Chronic obstructive pulmonary disease exacerbation with acute hypoxic and hypercapnic respiratory failure. 2. Continued smoking. 3. Hyperlipidemia. 4. Depression. 5. Multiple medical issues. DISCHARGE DISPOSITION: The patient will be discharged in stable condition. Guarded prognosis. HISTORY OF PRESENT ILLNESS: This is a 62-year-old gentleman with past medical history, who was admitted with shortness of breath with COPD acute exacerbation. The patient continues to smoke. Smoking cessation has been advised. The patient improved significantly. Dr. Miles recommended the patient to be discharged. PHYSICAL EXAMINATION: VITAL SIGNS: Stable. CARDIOVASCULAR: S1, S2. ABDOMEN: Soft. NERVOUS SYSTEM: No focal deficit. DISCHARGE MEDICATIONS: 1. Ceftin 500 mg p.o. b.i.d. for 5 days . No smoking. 2. Habitrol 21 days. 3. Prednisone taper. 4. DuoNeb q.i.d. and p.r.n. 5. Symbicort. FOLLOW UP: Followup with primary physician as well as followup with Dr. Agosto, Pulmonology as recommended. MMODL / IJN: [id number] /
--- NOTE | 2023-10-09 14:11 | P.PN ---
Subjective Progress Note Date: 10/09/23 62-year-old male patient with advanced COPD, presenting to the hospital because of worsening shortness of breath. The patient is known to have advanced COPD patient is a chronic smoker and continues to smoke around half pack of cigarettes a day. He has increased cough and congestion and chest tightness and wheezing. His baseline performance and functional status extremely poor and the patient is severely cachectic with a body mass index of 16.9. He has been using a combination of Dulera and Spiriva on an outpatient basis and he also has a nebulizer and utilizes albuterol rescue administrate basis. He has home O2. His white cell count at 13.9 with hemoglobin 14.3 and a platelet count of 223 normal coagulation profile. The viral panel has been negative. Electrolytes are both within normal limits. Troponins are negative. proBNP level is not elevated. The patient is currently on a combination of bronchodilators and steroids. He is also on IV fluids at 75 cc an hour normal saline. O no evidence of any CO2 narcosis. Significant limitation in exercise capacity as the patient gets short of breath upon walking around 5 to 10 feet at baseline. Diminished appetite. His chest x-ray shows no evidence of any cardiopulmonary process and shows advanced COPD. The previous CAT scan of the chest that was done on 08/24/2022 showed a thickening adjacent to the major fissure on the right. This was considered to be an area of atelectasis/pneumonia. The patient in addition has advanced COPD. On today's evaluation of 10/09/2023, the patient is feeling better. Less bronchospastic and wheezy compared to yesterday. No new complaints. Cough and congestion has subsided. White cell count at 15 with a hemoglobin of 13 and a platelet count of 263. Sodium is at 141. Potassium level is 4.6. Normal renal function. The viral panel has been negative. Remains on bronchodilators and steroids. Remains on oxygen 2 L/min nasal cannula. No altered mentation. No signs of any CO2 narcosis. Objective - Vital Signs Vital signs: Vital Signs Temp 97.5 F L 10/09/23 07:56 Pulse 88 10/09/23 09:49 Resp 17 10/09/23 07:56 BP 121/65 10/09/23 07:56 Pulse Ox 97 10/09/23 09:29 FiO2 Intake & Output 0310/09/23 10/09/23 18:59 06:59 18:59 Weight 48.988 kg Other: # Voids 3 2 - Exam Thin, cachectic, in mild degree of respite distress at rest. The patient has a barrel chest currently on 2 L of oxygen by nasal cannula Head exam was generally normal. There was no scleral icterus or corneal arcus. Mucous membranes were moist. Neck was supple and without jugular venous distension, thyromegaly, or carotid bruits. Carotids were easily palpable bilaterally. There was no adenopathy. Lung sounds are markedly diminished and the patient has diminished breath sound lung base bilaterally the patient is exhalation limitation and expiratory w heezes heard throughout the lung horne bilaterally. Cardiac exam revealed the PMI to be normally situated and sized. The rhythm was regular and no extrasystoles were noted during several minutes of auscultation. The first and second heart sounds were normal and physiologic splitting of the second heart sound was noted. There were no murmurs, rubs, clicks, or gallops. Heart sounds are distant. Abdominal exam revealed normal bowel sounds. The abdomen was soft, non-tender, and without masses, organomegaly, or appreciable enlargement of the abdominal aorta. Examination of the extremities revealed easily palpable radial, femoral and pedal pulses. There was no cyanosis, clubbing or edema. Examination of the skin revealed no evidence of significant rashes, suspicious appearing nevi or other concerning lesions. Neurologically, the patient is awake and alert and the patient does not have any focal neurological deficit. Cranial nerves are essentially intact. - Labs CBC & Chem 7: 10/09/23 07:12 10/09/23 07:12 Labs: Microbiology - Last 24 Hours (Table) 10/08/23 17:36 Gram Stain - Preliminary Sputum Assessment and Plan Plan: Acute exacerbation of chronic COPD with secondary shortness of breath. Chest x- ray free of acute pulmonary infiltrates. Scans been negative. He is a chronic smoker continues to smoke half to 1 pack of cigarettes on a daily basis. Chronic hypoxic respiratory failure currently on 2 L of oxygen by nasal cannula Advanced COPD, maintained on a combination of Dulera and Spiriva on an outpatient basis and the patient has had previous exacerbations requiring hospitalization. He has been utilizing albuterol nebulized treatments [id number] Chronic weight loss and cachexia and a body mass index of 16 History of prostate cancer Hyperlipidemia Depression Generalized deconditioning Plan Clinically feeling much better Patient seems to be be ready for going home in the I made recommendations to discharge the patient home on a prednisone burst taper in addition to oxygen, DuoNeb updrafts and a course of Zithromax to be followed up on outpatient basis. In terms of his COPD, he has been maintained on a combination of Dulera and Spiriva and albuterol updrafts [id number] on an as-needed basis. Patient has home O2. Immediate smoking cessation and smoking cessation counseling was done Continue with DuoNeb nebulized treatments [id number] Prednisone burst taper at time of discharge starting with 40 mg to be given by 10 mg every 4 days Dietary advice was given Prognosis poor based on the presence of advanced lung disease.
[2023-10-09 16:44] VITALS: BP 121/65; PULSE 85; RESP 17; TEMP 97.5; BMI 16.9
== END 2023-10-09 16:30 | disposition home or self-care (01) | DRG 190 ==
LOC: EC 05:52 → 5NMEDONC 06:48 → 4SSUR 08:40
PROVIDERS: ADMIT Hospitalist; ATTEND Hospitalist
DX: J44.1 Chronic obstructive pulmonary disease with (acute) exacerbation (principal); J96.21 Acute and chronic respiratory failure with hypoxia; J96.22 Acute and chronic respiratory failure with hypercapnia; J45.901 Unspecified asthma with (acute) exacerbation; Z68.1 Body mass index [BMI] 19.9 or less, adult; E88.A Wasting disease (syndrome) due to underlying condition; Z99.81 Dependence on supplemental oxygen; F32.A Depression, unspecified; D72.828 Other elevated white blood cell count; F17.210 Nicotine dependence, cigarettes, uncomplicated; E78.5 Hyperlipidemia, unspecified; F41.9 Anxiety disorder, unspecified; Z71.6 Tobacco abuse counseling; Z85.46 Personal history of malignant neoplasm of prostate; Z86.14 Personal history of Methicillin resistant Staphylococcus aureus infection; Z79.51 Long term (current) use of inhaled steroids; Z79.899 Other long term (current) drug therapy
CPT/HCPCS: 36415; 71045; 80053; 83605; 83735; 83880; 84100; 84484; 85025; 85610; 85730; 87070; 87205; 87636; 93005; 94640; 94760; 96361; 96374; 96375; 99291

== ENCOUNTER 2023-12-17 09:57 | Emergency (ER) | payer OTHER ==
--- NOTE | 2023-12-17 10:24 | ED ---
General Adult HPI - General Chief complaint: Shortness of Breath Stated complaint: SOB Time Seen by Provider: 12/17/23 10:01 Source: patient, EMS, RN notes reviewed Mode of arrival: EMS Limitations: no limitations - History of Present Illness Initial comments: Patient is a 63-year-old male presenting to the emergency department with difficulty breathing. Patient is on chronic home oxygen. Patient states he was having difficulty with his oxygen earlier. Patient was off of his oxygen for a bit of time and had an exacerbation of his COPD. EMS provided oxygen and nebulizer treatment with resolution of symptoms. Patient still feels baseline at this point. Patient states he does not want anything further done and would like to be discharged. No fevers. - Related Data Home Medications Medication Instructions Recorded Confirmed Albuterol Sulfate [Proventil Hfa] 2 puff INHALATION RT-Q6H PRN 06/04/16 10/08/23 Atorvastatin [Lipitor] 40 mg PO HS 06/04/16 10/08/23 Omeprazole [PriLOSEC] 20 mg PO DAILY 06/04/16 10/08/23 Albuterol Nebulized [Ventolin 2.5 mg INHALATION RT-TID PRN 10/08/23 10/08/23 Nebulized] Mometasone/Formoterol [Dulera 200 2 puff INHALATION RT-BID 10/08/23 10/08/23 Mcg-5 Mcg Inhaler] Sertraline [Zoloft] 25 mg PO DAILY 10/08/23 10/08/23 Previous Rx's Medication Instructions Recorded Budesonide-Formot 160-4.5 Mcg 2 puff INHALATION BID #1 each 10/09/23 [Symbicort 160-4.5 Mcg Inhaler] Ipratropium-Albuterol Nebulize 3 ml INHALATION QID #120 ml 10/09/23 [Duoneb 0.5 mg-3 mg/3 ml Soln] Nicotine 21Mg/24Hr Patch [Habitrol] 1 patch TRANSDERM DAILY #30 patch 10/09/23 cefUROXime axetiL [Ceftin] 500 mg PO BID 5 Days #10 tab 10/09/23 predniSONE 10 mg PO DIRECTED #30 tab 10/09/23 Allergies Allergy/AdvReac Type Severity Reaction Status Date / Time No Known Allergies Allergy Verified 12/17/23 10:07 Review of Systems ROS Statement: Those systems with pertinent positive or pertinent negative responses have been documented in the HPI. ROS Other: All systems not noted in ROS Statement are negative. Constitutional: Denies: fever Eyes: Denies: eye pain ENT: Denies: ear pain Respiratory: Reports: as per HPI Cardiovascular: Denies: chest pain Endocrine: Denies: fatigue Gastrointestinal: Denies: abdominal pain Musculoskeletal: Denies: back pain Skin: Denies: rash Neurological: Denies: weakness Past Medical History Past Medical History: Cancer, COPD, GERD/Reflux, Hyperlipidemia, Osteoarthritis (OA), Pneumonia, Prostate Disorder Additional Past Medical History / Comment(s): Hx Prostate cancer, bilateral hand fx in past History of Any Multi-Drug Resistant Organisms: MRSA Date of last positivie culture/infection: 02/28/18 MDRO Source:: MRSA URINE Past Surgical History: Hernia Repair, Prostate Surgery Additional Past Surgical History / Comment(s): colonoscopy, surgery for punctured lung, Past Anesthesia/Blood Transfusion Reactions: No Reported Reaction Past Psychological History: Anxiety, Depression Smoking Status: Current every day smoker Past Alcohol Use History: None Reported Past Drug Use History: None Reported - Past Family History Father Family Medical History: Cancer Additional Family Medical History / Comment(s): ; prostate CA Mother Family Medical History: Cancer Additional Family Medical History / Comment(s): , lung CA Brother(s) Family Medical History: Cancer Additional Family Medical History / Comment(s): Prostate cancer, . General Exam Limitations: no limitations General appearance: alert, in no apparent distress Head exam: Present: normocephalic Eye exam: Present: normal appearance Neck exam: Present: normal inspection Respiratory exam: Present: normal lung sounds bilaterally. Absent: respiratory distress, wheezes, decreased breath sounds Cardiovascular Exam: Present: regular rate, normal rhythm GI/Abdominal exam: Present: soft. Absent: tenderness Extremities exam: Present: normal inspection. Absent: pedal edema, calf tenderness Neurological exam: Present: alert Psychiatric exam: Present: normal affect, normal mood Skin exam: Present: normal color Course Vital Signs 12/17/23 12/17/23 10:04 10:07 Temperature 98.1 F Pulse Rate 78 Respiratory 22 22 Rate Blood Pressure 139/70 O2 Sat by Pulse 97 Oximetry Medical Decision Making - Medical Decision Making Was pt. sent in by a medical professional or institution (, PA, BULLARD MACHINE OPERATOR, urgent care, hospital, or care home...) When possible be specific @ -No Did you speak to anyone other than the patient for history (EMS, parent, family, police, friend...)? What history was obtained from this source @ -EMS provided nebulizer Did you review nursing and triage notes (agree or disagree)? Why? @ -I reviewed and agree with nursing and triage notes Were old charts reviewed (outside hosp., previous admission, EMS record, old EKG, old radiological studies, urgent care reports/EKG's, care home records)? Report findings @ -No old charts were reviewed Differential Diagnosis (chest pain, altered mental status, abdominal pain women, abdominal pain men, vaginal bleeding, weakness, fever, dyspnea, syncope, headache, dizziness, GI bleed, back pain, seizure, CVA, palpatations, mental health, musculoskeletal)? @ -Differential Dyspnea: Coronary syndrome, arrhythmia, tamponade, asthma, COPD, pulmonary embolism, pneumonia, pneumothorax, pulmonary effusion, anaphylaxis, diabetic ketoacidosis, flailed chest, pulmonary contusion, diaphragmatic rupture, anemia, neuromuscular, this is not meant to be an all-inclusive list. EKG interpreted by me (3pts min.). @ -As above X-rays interpreted by me (1pt min.). @ -None done CT interpreted by me (1pt min.). @ -None done U/S interpreted by me (1pt. min.). @ -None done What testing was considered but not performed or refused? (CT, X-rays, U/S, labs)? Why? @ -Consider blood work and imaging however patient is symptom-free and like to be discharged. What meds were considered but not given or refused? Why? @ -None Did you discuss the management of the patient with other professionals (professionals i.e. , PA, BULLARD MACHINE OPERATOR, lab, RT, psych nurse, community mental health social worker, cartography professor, teacher, legal officer, field nurse case manager)? Give summary @ -No Was smoking cessation discussed for >3mins.? @ -No Was critical care preformed (if so, how long)? @ -No Were there social determinants of health that impacted care today? How? (Homelessness, low income, unemployed, alcoholism, drug addiction, transportation, low edu. Level, literacy, decrease access to med. care, senior care, rehab)? @ -No Was there de-escalation of care discussed even if they declined (Discuss DNR or withdrawal of care, Hospice)? DNR status @ -No What co-morbidities impacted this encounter? (DM, HTN, Smoking, COPD, CAD, Cancer, CVA, ARF, Chemo, Hep., AIDS, mental health diagnosis, sleep apnea, morbid obesity)? @ -COPD history Was patient admitted / discharged? Hospital course, mention meds given and route, prescriptions, significant lab abnormalities, going to OR and other pertinent info. @ -Patient presents by EMS after being off his oxygen and needing nebulizer treatment. EMS provided nebulizer treatment and patient has oxygen on and is symptom-free at this time. Patient would like to be discharged home. Patient states he does have medications at home and is able to make his oxygen work. Undiagnosed new problem with uncertain prognosis? @ -No Drug Therapy requiring intensive monitoring for toxicity (Heparin, Nitro, Insulin, Cardizem)? @ -No Were any procedures done? @ -No Diagnosis/symptom? @ -COPD Acute, or Chronic, or Acute on Chronic? @ -Acute on chronic Uncomplicated (without systemic symptoms) or Complicated (systemic symptoms)? @ -Default Side effects of treatment? @ -No Exacerbation, Progression, or Severe Exacerbation? @ -No Poses a threat to life or bodily function? How? (Chest pain, [place], [place], pneumonia, PE, COPD, DKA, ARF, appy, cholecystitis, CVA, Diverticulitis, Homicidal, Suicidal, threat to staff... and all critical care pts) @ -No Disposition Clinical Impression: COPD exacerbation Disposition: HOME SELF-CARE Condition: Stable Instructions (If sedation given, give patient instructions): COPD (Chronic Obstructive Pulmonary Disease) (ED) Additional Instructions: Please do follow-up with your primary care physician in the next couple of days for recheck. Return for difficulty using your oxygen, fevers, worsening breathing, worsening symptoms or other concerns. Is patient prescribed a controlled substance at d/c from ED?: No Referrals: Richard Mancia MD [Primary Care Provider] - 1-2 days Time of Disposition: 10:24
[2023-12-17 10:35] VITALS: PULSE 78; TEMP 98.1
[2023-12-17 11:30] VITALS: BP 127/76; RESP 20
== END 2023-12-17 10:42 | disposition home or self-care (01) ==
LOC: EC 09:57
DX: J44.1 Chronic obstructive pulmonary disease with (acute) exacerbation (principal); F17.200 Nicotine dependence, unspecified, uncomplicated
CPT/HCPCS: 99284

== ENCOUNTER 2024-09-26 17:02 | Inpatient (IN) | payer OTHER ==
--- NOTE | 2024-09-26 17:16 | ED ---
General Adult HPI - General Chief complaint: Shortness of Breath Stated complaint: OLIVER Time Seen by Provider: 09/26/24 17:04 Source: EMS Mode of arrival: EMS Limitations: no limitations - History of Present Illness Initial comments: Dictation was produced using CrossReader dictation software. please excuse any grammatical, word or spelling errors. Chief Complaint: 63-year-old male presents to the emergency department for dyspnea History of Present Illness: Patient 63-year-old male who has history of COPD presents to the emergency department for dyspnea. Patient states he has been having dyspnea for the last 2 to 3 days. Patient has COPD and continues to smoke cigarettes. He did have some mild substernal chest pain. None rating not associated diaphoresis or nausea. Does report a mild cough. Denies any fever constitutional symptoms. The ROS documented in this emergency department record has been reviewed and confirmed by me. Those systems with pertinent positive or negative responses have been documented in the HPI. All other systems are other negative and/or noncontributory. - Related Data Home Medications Medication Instructions Recorded Confirmed Albuterol Sulfate [Proventil Hfa] 2 puff INHALATION RT-Q6H PRN 06/04/16 10/08/23 Atorvastatin [Lipitor] 40 mg PO HS 06/04/16 10/08/23 Omeprazole [PriLOSEC] 20 mg PO DAILY 06/04/16 10/08/23 Albuterol Nebulized [Ventolin 2.5 mg INHALATION RT-TID PRN 10/08/23 10/08/23 Nebulized] Mometasone/Formoterol [Dulera 200 2 puff INHALATION RT-BID 10/08/23 10/08/23 Mcg-5 Mcg Inhaler] Sertraline [Zoloft] 25 mg PO DAILY 10/08/23 10/08/23 Previous Rx's Medication Instructions Recorded Budesonide-Formot 160-4.5 Mcg 2 puff INHALATION BID #1 each 10/09/23 [Symbicort 160-4.5 Mcg Inhaler] Ipratropium-Albuterol Nebulize 3 ml INHALATION QID #120 ml 10/09/23 [Duoneb 0.5 mg-3 mg/3 ml Soln] Nicotine 21Mg/24Hr Patch [Habitrol] 1 patch TRANSDERM DAILY #30 patch 10/09/23 cefuroxime axetiL [Ceftin] 500 mg PO BID 5 Days #10 tab 10/09/23 predniSONE 10 mg PO DIRECTED #30 tab 10/09/23 Allergies Allergy/AdvReac Type Severity Reaction Status Date / Time No Known Allergies Allergy Verified 09/26/24 17:09 Review of Systems ROS Statement: Those systems with pertinent positive or pertinent negative responses have been documented in the HPI. ROS Other: All systems not noted in ROS Statement are negative. Past Medical History Past Medical History: Cancer, COPD, GERD/Reflux, Hyperlipidemia, Osteoarthritis (OA), Pneumonia, Prostate Disorder Additional Past Medical History / Comment(s): Hx Prostate cancer, bilateral hand fx in past History of Any Multi-Drug Resistant Organisms: MRSA Date of last positivie culture/infection: 02/28/18 MDRO Source:: MRSA URINE Past Surgical History: Hernia Repair, Prostate Surgery Additional Past Surgical History / Comment(s): colonoscopy, surgery for punctured lung, Past Anesthesia/Blood Transfusion Reactions: No Reported Reaction Past Psychological History: Anxiety, Depression Smoking Status: Current every day smoker Past Alcohol Use History: None Reported Past Drug Use History: None Reported - Past Family History Father Family Medical History: Cancer Additional Family Medical History / Comment(s): ; prostate CA Mother Family Medical History: Cancer Additional Family Medical History / Comment(s): , lung CA Brother(s) Family Medical History: Cancer Additional Family Medical History / Comment(s): Prostate cancer, . General Exam - General Exam Comments Initial Comments: PHYSICAL EXAM: General Impression: Alert and oriented x3, not in acute distress HEENT: Normocephalic atraumatic, extra-ocular movements intact, pupils equal and reactive to light bilaterally, mucous membranes moist. Cardiovascular: Heart regular rate and rhythm Chest: Able to complete full sentences, no retractions, no tachypnea, diffuse lung wheezing worse on the right than the left Abdomen: abdomen soft, non-tender, non-distended, no organomegaly Musculoskeletal: Pulses present and equal in all extremities, no peripheral edema Motor: no focal deficits noted Neurological: CN II-XII grossly intact, no focal motor or sensory deficits noted Skin: Intact with no visualized rashes Psych: Normal affect and mood Limitations: no limitations Course Vital Signs 09/26/24 09/26/24 17:04 17:06 Temperature 97.4 F L Pulse Rate 97 Respiratory 24 Rate Blood Pressure 123/82 O2 Sat by Pulse 100 Oximetry Fraction of 50 Inspired Oxygen (FIO2) EKG Findings - EKG Comments: EKG Findings:: My EKG interpretation: Ventricular rate 6, sinus rhythm,. 150, cures 97, QTc 402. No NE prolongation, no QTC prolongation. ST elevations seen in V1 through V3. She is comparable to EKG performed from October 08, 2023. There does appear to be some significant artifact making interpretation diff icult. This EKG is nonspecific Medical Decision Making - Medical Decision Making Was pt. sent in by a medical professional or institution (, PA, GLASS CALIBRATOR, urgent care, hospital, or residential...) When possible be specific @ -No Did you speak to anyone other than the patient for history (EMS, parent, family, police, friend...)? What history was obtained from this source @ -No Did you review nursing and triage notes (agree or disagree)? Why? @ -I reviewed and agree with nursing and triage notes Were old charts reviewed (outside hosp., previous admission, EMS record, old EKG, old radiological studies, urgent care reports/EKG's, residential records)? Report findings @ -No old charts were reviewed Differential Diagnosis (chest pain, altered mental status, abdominal pain women, abdominal pain men, vaginal bleeding, musculoskeletal, weakness, fever, dyspnea, syncope, headache, dizziness, GI bleed, back pain, seizure, CVA, palpatations, mental health)? @ -Differential Dyspnea: Coronary syndrome, arrhythmia, tamponade, asthma, COPD, pulmonary embolism, pneumonia, pneumothorax, pulmonary effusion, anaphylaxis, diabetic ketoacidosis, flailed chest, pulmonary contusion, diaphragmatic rupture, anemia, neuromuscular, this is not meant to be an all-inclusive list. Differential Chest Pain: Stable Angina, Unstable Angina, STEMI, NSTEMI Aortic Dissection, Pneumothorax, Musculoskeletal, Esophageal Spasm GERD, Cholecystitis, Pancreatitis, Zoster, this is not meant to be an all-inclusive list. EKG interpreted by me (3pts min.). @ -My EKG interpretation: Ventricular rate 86, sinus rhythm,. 150, QRS 97, QTc 402. No NE prolongation, no QTC prolongation. Actionable ST elevation anterior precordial leads versus wandering baseline. Overall the initial EKG is unremarkable. Repeat EKG performed shortly after shows obvious ST elevations in anterior precordial leads. No obvious reciprocal depressions. EKG consistent with ST segment elevation CT X-rays interpreted by me (1pt min.). @ -Pending CT interpreted by me (1pt min.). @ -None done U/S interpreted by me (1pt. min.). @ -None done What testing was considered but not performed or refused? (CT, X-rays, U/S, labs)? Why? @ -None What meds were considered but not given or refused? Why? @ -None Was smoking cessation discussed for >3mins.? @ -No Were there social determinants of health that impacted care today? How? (Homelessness, low income, unemployed, alcoholism, drug addiction, transportation, low edu. Level, literacy, decrease access to med. care, fpc, rehab)? @ -No Was there de-escalation of care discussed even if they declined (Discuss DNR or withdrawal of care, Hospice)? DNR status @ -No What co-morbidities impacted this encounter? (DM, HTN, Smoking, COPD, CAD, Cancer, CVA, ARF, Chemo, Hep., AIDS, mental health diagnosis, sleep apnea, morbid obesity)? @ -Tobacco use, COPD Was patient admitted / discharged? Hospital course, mention meds given and route, prescriptions, significant lab abnormalities, going to OR and other pertinent info. @ -63-year-old male presents emergency department chest pain and dyspnea. States that his dyspnea is exertional. He does some report some substernal chest pressure. Nonradiating associate diaphoresis or nausea. Patient does have some wheezing. Vital signs stable. EKG shows ST segment elevation CT. Code STEMI paged. Case discussed with cardiology came to the ER and evaluated the patient reviewed EKGs. Did you discuss the management of the patient with other professionals (professionals i.e. DrMarry, PA, GLASS CALIBRATOR, lab, RT, psych nurse, social work professor, dental assistant instructor, teacher, chief revenue officer, wrapper caser)? Give summary @ -Case discussed with hospitalist for admission Was critical care preformed (if so, how long)? @ -Yes, 33 minutes Undiagnosed new problem with uncertain prognosis? @ -No Drug Therapy requiring intensive monitoring for toxicity (Heparin, Nitro, Insulin, Cardizem)? @ -No Were any procedures done? @ -No Diagnosis/symptom? Acute, or Chronic, or Acute on Chronic? Uncomplicated (wit hout systemic symptoms) or Complicated (systemic symptoms)? @ -STEMI Side effects of treatment? @ -No Exacerbation, Progression, or Severe Exacerbation? @ -No Poses a threat to life or bodily function? How? (Chest pain, USA, [place], pneumonia, PE, COPD, DKA, ARF, appy, cholecystitis, CVA, Diverticulitis, Homicidal, Suicidal, threat to staff... and all critical care pts) @ -yes - Lab Data Result diagrams: 09/26/24 17:16 Lab Results 09/26/24 Range/Units 17:16 WBC 5.5 (3.8-10.6) k/uL RBC 5.02 (4.30-5.90) m/uL Hgb 15.4 (13.0-17.5) gm/dL Hct 49.3 (39.0-53.0) % MCV 98.1 (80.0-100.0) fL MCH 30.6 (25.0-35.0) pg MCHC 31.2 (31.0-37.0) g/dL RDW 12.5 (11.5-15.5) % Plt Count 237 (150-450) k/uL MPV 7.4 Neutrophils % 57 % Lymphocytes % 20 % Monocytes % 11 % Eosinophils % 8 % Basophils % 1 % Neutrophils # 3.1 (1.3-7.7) k/uL Lymphocytes # 1.1 (1.0-4.8) k/uL Monocytes # 0.6 (0-1.0) k/uL Eosinophils # 0.5 (0-0.7) k/uL Basophils # 0.0 (0-0.2) k/uL Disposition Clinical Impression: STEMI (ST elevation myocardial infarction) Disposition: ADMITTED IP TO THIS HOSP Condition: Critical Referrals: Richard Mancia MD [Primary Care Provider] - 1-2 days Decision Time: 17:33
[2024-09-26 17:24] LABS: Basophils % (A) 1 %; Eosinophils # (A) 0.5 k/uL (0-0.7); Eosinophils % (A) 8 %; HCT 49.3 % (39.0-53.0); HGB 15.4 gm/dL (13.0-17.5); Lymphocytes # (A) 1.1 k/uL (1.0-4.8); Lymphocytes % (A) 20 %; MCH 30.6 pg (25.0-35.0); MCHC 31.2 g/dL (31.0-37.0); MCV 98.1 fL (80.0-100.0); Mean Platelet Volume 7.4; Monocytes # (A) 0.6 k/uL (0-1.0); Monocytes % (A) 11 %; Neutrophils # (A) 3.1 k/uL (1.3-7.7); Neutrophils % (A) 57 %; Platelet Count 237 k/uL (150-450); RBC 5.02 m/uL (4.30-5.90); RDW 12.5 % (11.5-15.5); WBC 5.5 k/uL (3.8-10.6)
[2024-09-26] MEDS ORDERED: NALOXONE 0.4 MG/ML 1 ML VIAL IV PRN (17:29)
[2024-09-26] MEDS: HYDROmorphone 1 MG/ML 1 ML SYRINGE IVP STA (17:38)
--- NOTE | 2024-09-26 17:40 | XR ---
EXAMINATION TYPE: XR chest 1V portable DATE OF EXAM: 09/26/2024 5:31 PM COMPARISON: Chest radiographs from 10/06/2023 CLINICAL INDICATION: Male, 63 years old with history of chest pain, sob; [facility] TECHNIQUE: XR chest 1V portable Frontal view of the chest. FINDINGS: Lungs/Pleura: Prominent interstitial lung markings are seen scattered throughout the lungs. Flattenin g of the diaphragms with increased lucency in the lung apices. No evidence of focal consolidation, pn eumothorax or pleural effusion. Pulmonary vascularity: Unremarkable. Heart/mediastinum: Cardiomediastinal silhouette is unremarkable. Musculoskeletal: No acute osseous pathology. IMPRESSION: Interstitial lung disease changes without acute pulmonary process. [facility], , 09/26/2024 5:38 PM
[2024-09-26 17:48] LABS: Partial Thromboplastin Time 24.9 sec (22.0-30.0); Prothrombin Time 11.1 sec (10.0-12.5)
[2024-09-26] MEDS: LIDOCAINE 1% INJ 10MG/ML (20 ML MDV) SQ ONE (17:55)
[2024-09-26] MEDS: SODIUM CHLORIDE 0.9% 1,000 ML IV ONE (17:55)
[2024-09-26] MEDS: VERAPAMIL SYRINGE (5 MG/10 ML) INTRAARTER ONE (17:56)
[2024-09-26] MEDS: MIDAZOLAM 2 MG/2 ML VIAL IVP ONE (17:58)
[2024-09-26] MEDS: HEPARIN SODIUM,PORCINE (1 ML) 2,500 UNIT in SODIUM CHLORIDE 0.9% 250 ML IRRIGATION ONE (18:01)
[2024-09-26] MEDS: HEPARIN SODIUM,PORCINE 10,000 UNIT in SODIUM CHLORIDE 0.9% 1,000 ML IRRIGATION ONE (18:01)
[2024-09-26 18:04] LABS: Influenza A Not Detected (Not Detectd); Influenza B Not Detected (Not Detectd); RSV Not Detected (Not Detectd)
[2024-09-26] MEDS: IOPAMIDOL-370 200ML BTL INJ ONE (18:05)
[2024-09-26] MEDS: ATORVASTATIN 80 MG TAB PO STA (18:08)
[2024-09-26] MEDS ORDERED: RX INFO: IV CONTRAST WAS GIVEN 1 EACH MISC MISCELLANE PRN (18:16)
--- NOTE | 2024-09-26 18:16 | P.CARDCATH ---
Date of Procedure: 09/26/24 Description of Procedure: DIAGNOSTIC CORONARY ANGIOGRAPHY and LEFT HEART CATH REPORT, left ventriculography PROCEDURES PERFORMED: Left heart catheterization Selective coronary angiography Left ventriculography Moderate conscious sedation 13 mins Right radial access INDICATION: Anterior STEMI BRIEF HPI: 63-year-old presented to the [facility] because of increased worsening shortness of breath and chest pain. Initial EKG showed ST elevations in lead V1 and V2. For this STEMI was activated. Patient was promptly evaluated at bedside. Bedside echocardiogram was performed which showed an EF of around 20 to 25% with anteroseptal wall hypokinesia. For this patient was taken for the cardiac catheterization. CONSENT: I have explained the procedural steps of above-mentioned procedures in layman's terms to the patient. I discussed the risks (including but not limited to stroke, emergent vascular or cardiac surgery or ), benefits and alternative therapies for the above-mentioned procedure. I discussed the risks of sedation/analgesia and blood product administration (if indicated). The patient has indicated understanding and acceptance of these risks. Conscious Sedation: Patient's ECG, heart rate, blood pressure, pulse oximetry were monitored throughout the duration of procedure under my direct supervision. 0.5 mg Versed and 1 mg Dilaudid were used for induction of moderate conscious sedation. Total duration of moderate concious sedation 13 minutes. PROCEDURAL DETAILS: Patient was prepped and draped in sterile fashion. 1% lidocaine was infiltrated over the right radial artery. Right radial access was obtained via modified seldinger technique. . Medications: 5mg of verapamil was administed in the radial sheet. 4000 Units of Heparin was administed in the ER Wires and Catheter used: J wire was advanced under fluroscopy to get to aortic root. 5 welsh JR 4 diagnostic catheter was utilized obtain left ventricular pressure and pressure gradint across aortic valve. 5 welsh JR 5 diagnostic catheter was used to selectively engage the right coronary ostium. 5 welsh JL 3.5 diagnostic catheter was utilized to selectively engage the left coronary ostium. Angiographic images were reviewed in detail. Catheter and wire were removed. Radial sheet was flushed. The right radial sheath was removed and a TR band was placed. Patent hemostasis was achieved. The patient tolerated the procedure well. Patient was transported back to the post catheterization holding area in stable condition. TECHNICAL DETAILS Total radiation: 87 mGy Total fluro time: 2.6 minutes Total contrast used: Isovue 75 mL Complications: [none] Estimated Blood loss: less than 15 ml HEMODYNAMICS: LVEDP 17 mmHg. There was no significant gradient across the aortic valve. SELECTIVE CORONARY ARTERIOGRAPHY: LEFT MAIN: The left main is short and large caliber vessel. It bifurcates into t he LAD and circumflex. Left main appears angiographically normal. LEFT ANTERIOR DESCENDING CORONARY ARTERY: LAD is a large caliber vessel which wraps around to the apex. Proximal LAD has mild luminal irregularities. Mid LAD has 20 -30% diffuse disease. Distal LAD appears patent with mild irregularities. LAD gives rise to a medium size diagonal 1 which appears patent and bifurcates distally. Diagonal 2 is a small caliber and appears patent. LEFT CIRCUMFLEX CORONARY ARTERY: It is nondominant vessel. Proximal LCx is patent. Proximal LAD gives rise to a high OM1 branch which is medium caliber and long vessel. It appears patent with minimal luminal irregularities. Proximal and mid LCx appears patent with mild luminal irregularities. Mid LAD continues to give a second OM branch which is medium caliber and appears patent with mild mid irregularities. RIGHT CORONARY ARTERY: Dominant vessel. Proximal RCA has mild to moderate irregularities. Mid RCA has 30% diffuse disease. Distal RCA has mild mid irregularities. Distally it bifurcates into PDA and PL branch. Midportion of PDA has 50 to 60% disease. PL branch are medium caliber and appears patent. LV ventriculography: EF around 30 to 35% with with circumferential mid ventricular hypokinesia. IMPRESSION: Mild diffuse luminal irregularities in LAD and RCA 50% mid PDA disease Mildly elevated LVEDP Cardiomyopathy with a EF of 30 to 35%, mid ventricular involvement PLAN: Admit to ICU for COPD and acute hypoxic respiratory failure management IV fluids 75 cc/h for 6 hours Aspirin, Lipitor Performing Physician Eloy Rivero MD, FACC, RPVI Thank you for allowing [facility] to participate in this patient's care. Feel free to reach out in case of any followup questions.
[2024-09-26 18:32] LABS: Glucose,Whole Blood 116 mg/dL (70-110)
[2024-09-26] MEDS: SODIUM CHLORIDE 0.9% 1,000 ML IV SCH ×2 (18:52)
--- NOTE | 2024-09-26 19:51 | P.CNPUL ---
History of Present Illness Consult date: 09/26/24 Reason for consult: COPD History of present illness: 63-year-old presented to the [facility] because of increased worsening shortness of breath and chest pain. Initial EKG showed ST elevations in lead V1 and V2. For this STEMI was activated. Patient was promptly evaluated at bedside. Bedside echocardiogram was performed which showed an EF of around 20 to 25% with anteroseptal wall hypokinesia. For this patient was taken for the cardiac catheterization. The patient had a troponin of 0.037. The patient completed his cardiac catheterization through a right radial artery access. The coronaries on angiogram were essentially consistent with nonocclusive disease. The patient was found to have mild diffuse luminal irregularities in the LAD and RCA and 50% mid PDA disease. He also had mild elevation of the left ventricular diastolic pressure. Noted he has cardiomyopathy with impaired LV function. During the process, the patient became progressively more short of breath. He was placed on a BiPAP and currently is on a BiPAP pressure of 12 over 5 cm of water with FiO2 of 50%. He is generating a tidal volume of around 450 and his current minute ventilation is at 7 L. Pulse ox is in order of 99%. This patient is known to me. Taking care of him approximately a year ago. Back then, the patient was hospitalized for an acute COPD exacerbation. 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 His most recent CAT scan of the chest that was done on 08/24/2022 showed advanced emphysematous changes along with chronic scarring and thickening of the major fissure on the right. The follow-up chest x-ray from this current admission showed similar chronic scarring in the right apex along with diffuse emphysematous changes in the upper lobes bilaterally. No airspace disease. No consolidation. He has significant hyperinflation. At this point in time, the patient is awake and alert and communicating. Admits to smoke cigarettes 1 pack of cigarettes a day. He is on oxygen also 2 L/min nasal cannula. His home medications include Spiriva and Dulera as maintenance and the patient has albuterol HFA that he uses on an as 28 basis. His white cell count of 5.5 with a hemoglobin 15.4 and a platelet count of 237. The viral screen was negative. No altered mentation. He is quite cachectic. Hemodynamically stable. His weight is 49 kg. Review of Systems Constitutional: Reports fatigue, Reports poor appetite, Reports weight loss Eyes: denies as per HPI, denies blurred vision, denies bulging eye, denies decreased vision, denies diplopia, denies discharge, denies dry eye, denies irritation, denies itching, denies pain, denies photophobia, denies loss of peripheral vision, denies loss of vision, denies tunnel vision/blind spots Ears: deny: decreased hearing, ear discharge, earache, tinnitus Ears, nose, mouth and throat: Reports as per HPI Breasts: absent: as per HPI, gynecomastia Cardiovascular: Reports decreased exercise tolerance, Reports dyspnea on exertion Respiratory: Reports congestion, Reports cough, Reports dyspnea, Reports home oxygen, Reports wheezing Gastrointestinal: Reports as per HPI Genitourinary: Reports as per HPI Musculoskeletal: Reports as per HPI Musculoskeletal: absent: ankle pain, ankle stiffness, ankle swelling, as per HPI, elbow pain, elbow stiffness, elbow swelling, foot pain, foot stiffness, foot swelling, hand pain, hand stiffness, hand swelling, hip pain, hip stiffness, hip swelling, knee pain, knee stiffness, knee swelling, shoulder pain, shoulder stiffness, shoulder swelling, wrist pain, wrist stiffness, wrist swelling Integumentary: Reports as per HPI Neurological: Reports as per HPI Psychiatric: Reports as per HPI Endocrine: Reports as per HPI Hematologic/Lymphatic: Reports as per HPI Allergic/Immunologic: Reports as per HPI Past Medical History Past Medical History: Cancer, COPD, GERD/Reflux, Hyperlipidemia, Osteoarthritis (OA), Pneumonia, Prostate Disorder Additional Past Medical History / Comment(s): Hx Prostate cancer, bilateral hand fx in past History of Any Multi-Drug Resistant Organisms: MRSA Date of last positivie culture/infection: 02/28/18 MDRO Source:: MRSA URINE Past Surgical History: Hernia Repair, Prostate Surgery Additional Past Surgical History / Comment(s): colonoscopy, surgery for punctured lung, Past Anesthesia/Blood Transfusion Reactions: No Reported Reaction Past Psychological History: Anxiety, Depression Smoking Status: Current every day smoker Past Alcohol Use History: None Reported Additional Past Alcohol Use History / Comment(s): smokes 1-1.5 PPD since age 16. Past Drug Use History: None Reported - Past Family History Father Family Medical History: Cancer Additional Family Medical History / Comment(s): ; prostate CA Mother Family Medical History: Cancer Additional Family Medical History / Comment(s): , lung CA Brother(s) Family Medical History: Cancer Additional Family Medical History / Comment(s): Prostate cancer, . Medications and Allergies Home Medications Medication Instructions Recorded Confirmed Type Atorvastatin [Lipitor] 40 mg PO DAILY 06/04/16 09/26/24 History Omeprazole [PriLOSEC] 20 mg PO DAILY 06/04/16 09/26/24 History Mometasone/Formoterol [Dulera 200 2 puff INHALATION RT-BID 10/08/23 09/26/24 History Mcg-5 Mcg Inhaler] Sertraline [Zoloft] 25 mg PO DAILY 10/08/23 09/26/24 History Albuterol Sulfate [Ventolin HFA] 2 puff INHALATION RT-Q4H 09/26/24 09/26/24 History Spiriva Respimat 1.25mcg Actuation 2 puff INHALATION RT-DAILY 09/26/24 09/26/24 History Mist Tamsulosin [Flomax] 0.4 mg PO DAILY 09/26/24 09/26/24 History Allergies Allergy/AdvReac Type Severity Reaction Status Date / Time No Known Allergies Allergy Verified 09/26/24 17:42 Physical Exam Vitals: Vital Signs Temp Pulse Resp BP Pulse Ox FiO2 09/26/24 19:31 50 09/26/24 19:00 96.5 F L 70 12 105/74 100 50 09/26/24 18:32 50 09/26/24 17:06 50 09/26/24 17:04 97.4 F L 97 24 123/82 100 Intake and Output 09/26/24 09/26/24 09/26/24 06:59 14:59 22:59 Intake Total 215 Balance 215 Intake: IV 215 Sodium Chloride 0.9% 1, 75 000 ml @ 75 mls/hr IV . [id number] [facility] Rx#:[id number] Other: Weight 49.442 kg The patient appeared very thin, cachectic, able tolerate the BiPAP without having any significant major difficulties. Head exam is unremarkable. No scleral icterus or corneal arcus noted. Neck is without jugular venous distension, thyromegaly, or carotid bruits. Carotid upstrokes are brisk bilaterally. Lungs are showing diminished breath sounds along with prolongation of the exhalation phase of breathing and diffuse expiratory wheezes heard throughout the lung horne bilaterally. The patient has a barrel chest. Cardiac exam reveals the PMI to be normally sized and situated. Rhythm is regular. First and second heart sounds normal. No murmurs, rubs or gallops. Abdominal exam reveals normal bowel sounds, no masses, no organomegaly and no aortic enlargement. Extremities are nonedematous and both femoral and pedal pulses are normal. The patient has a radial stop and the cath site is dry clean and intact. Examination of the skin revealed no evidence of significant rashes, suspicious appearing nevi or other concerning lesions. Neurologically, the patient is awake and alert and the patient does not have any focal neurological deficit. Cranial nerves are essentially intact. Results - Laboratory Findings CBC and BMP: 09/26/24 17:16 PT/INR, D-dimer PT 11.1 sec (10.0-12.5) 09/26/24 17:16 INR 1.0 (<1.2) 09/26/24 17:16 Abnormal lab findings: Abnormal Labs 09/26/24 09/26/24 17:16 18:30 POC Glucose (mg/dL) 116 H Troponin I 0.037 H* - Diagnostic Findings Chest x-ray: image reviewed Assessment and Plan Plan: Acute ST segment elevation myocardial infarction, limited troponin elevation and a cardiac catheterization showed mild diffuse luminal irregularities involving the LAD and RCA with a 50% mid PDA disease. Nevertheless, this type of anatomy did not require any intervention or stenting. The patient is currently hemodynamically stable. Cardiac rhythm is sinus. Free of any chest pain. Cardiomyopathy with an ejection fraction of 30 to 35% Acute on chronic shortness of breath secondary to COPD exacerbation. Currently on a BiPAP pressure of 12/5 cm of water Advanced COPD with chronic emphysematous changes, predominantly in the upper lobes along with chronic scarring in the right major fissure Previous history of pneumothorax Chronic hypoxic respiratory maintained on oxygen 2 L/min nasal cannula Chronic smoking Chronic weight loss and cachexia and a body mass index of 16 History of prostate cancer, with a previous prostatectomy Hyperlipidemia Depression Generalized deconditioning Plan Keep the patient on BiPAP overnight and will transition him to nasal cannula in the morning. Typically uses oxygen 2 L/min nasal cannula start the patient on DuoNeb nebulized treatments 4 times daily and as needed Will allow the patient to use Symbicort 2 puffs twice a day Spiriva 1 puff a day IV Solu-Medrol 60 mg every 6 hours IV fluids are currently at 75 cc an hour for the next 6 hours and following that this will be switched to KVO Viral screen was negative Obtain electrolytes and liver function tests Continue aspirin Restart statins 40 mg p.o. daily Restart Zoloft Prilosec 20 mg p.o. daily Further management of his cardiomyopathy per cardiology. Will continue to follow.
[2024-09-26] MEDS: FORMOTEROL FUMARATE 20 MCG/2 ML NEBU INHALATION SCH (21:08)
[2024-09-26] MEDS: BUDESONIDE 1 MG/2 ML NEBU INHALATION SCH (21:08)
[2024-09-26] MEDS: IPRATROPIUM-ALBUTEROL 3 ML NEB INHALATION SCH (21:08)
[2024-09-26] MEDS: NICOTINE 21MG/24HR PATCH TRANSDERM SCH (21:39)
[2024-09-26] MEDS: DOXYCYCLINE 100 MG TABLET PO SCH (21:39)
[2024-09-26] MEDS: ATORVASTATIN 40 MG TAB PO SCH (21:39)
[2024-09-26] MEDS: methylPREDNISolone SOD SUCCI 125 MG/2 ML VIAL IV SCH ×2 (21:39→22:40)
[2024-09-26] MEDS: SERTRALINE 25 MG TAB PO SCH (21:39)
[2024-09-26] MEDS: ENOXAPARIN 40 MG/0.4 ML SYRINGE SQ SCH (21:40)
[2024-09-27] MEDS: ACETAMINOPHEN TAB 325 MG TAB PO PRN (03:03)
[2024-09-27] MEDS: MORPHINE SULFATE 2 MG/ML SYRINGE IVP PRN (04:01)
[2024-09-27 05:35] LABS: HCT 42.4 % (39.0-53.0); HGB 13.5 gm/dL (13.0-17.5); MCH 31.5 pg (25.0-35.0); MCHC 31.9 g/dL (31.0-37.0); MCV 98.6 fL (80.0-100.0); Mean Platelet Volume 7.3; Platelet Count 228 k/uL (150-450); RDW 12.4 % (11.5-15.5); WBC 4.8 k/uL (3.8-10.6)
[2024-09-27 05:51] LABS: ALT 27 U/L (4-49); AST 25 U/L (17-59); African American GFR (CKD) >90 (>60 ml/min/1.73 sqM); Albumin 3.7 g/dL (3.5-5.0); Alkaline Phosphatase 71 U/L (38-126); Anion Gap 4 mmol/L; Blood Urea Nitrogen 23 mg/dL (9-20); Calcium 8.9 mg/dL (8.4-10.2); Carbon Dioxide 30 mmol/L (22-30); Chloride 100 mmol/L (98-107); Glucose 138 mg/dL (74-99); Magnesium 1.8 mg/dL (1.6-2.3); Non-African American GFR(CKD) >90 (>60 ml/min/1.73 sqM); Potassium 4.4 mmol/L (3.5-5.1); Sodium 134 mmol/L (137-145); Total Bilirubin 0.4 mg/dL (0.2-1.3); Total Protein 6.2 g/dL (6.3-8.2)
[2024-09-27] MEDS ORDERED: Magnesium Replacement Protocol 1 EACH MISC MISCELLANE PRN (05:56)
[2024-09-27] MEDS: PANTOPRAZOLE 40 MG TABLET PO SCH (06:21)
[2024-09-27] MEDS: MAGNESIUM SULFATE-D5W PMX 1 GM in DEXTROSE/WATER 1 100ML.BAG IVPB ONE (06:21)
[2024-09-27] MEDS ORDERED: carvediloL 3.125 MG TAB PO SCH (07:30)
[2024-09-27] MEDS: ASPIRIN 81 MG PO SCH (09:30)
[2024-09-27] MEDS: TAMSULOSIN 0.4 MG CAP.ER.24H PO SCH (09:30)
[2024-09-27] MEDS: METOPROLOL SUCCINATE (ER) 25 MG TAB.ER.24H PO SCH (11:01)
[2024-09-27] MEDS: LOSARTAN 25 MG TAB PO SCH (11:01)
--- NOTE | 2024-09-27 11:41 | CA ---
Transthoracic Echo Report Name: Darin Metcalf Age: 63 Gender: M : 1960 Exam Date: 09/27/2024 09:51 Exam Location: [facility] Ht (in): 67 Wt (lb): 109 Ordering Physician: Eloy Rivero MD ([id number]) Attending/Referring Phys: Vacuum Bottle Assembler Hanh Carreon RDCS Procedure CPT: Indications: stemi Cardiac Hx: Technical Quality: Technically difficult study Contrast 1: Total Dose (mL): Contrast 2: Total Dose (mL): MEASUREMENTS (Male / Female) Normal Values 2D ECHO LV Diastolic Diameter PLAX 4.7 cm 4.2 - 5.9 / 3.9 - 5.3 cm LV Systolic Diameter PLAX 4.0 cm IVS Diastolic Thickness 0.8 cm 0.6 - 1.0 / 0.6 - 0.9 cm LVPW Diastolic Thickness 0.9 cm 0.6 - 1.0 / 0.6 - 0.9 cm LV Relative Wall Thickness 0.4 RV Internal Dim ED PLAX 3.2 cm LA Systolic Diameter LX 2.6 cm 3.0 - 4.0 / 2.7 - 3.8 cm LV Diastolic Volume MOD BP 88.4 cm??? 67 - 155 / 56 - 104 cm??? LV Systolic Volume MOD BP 54.7 cm??? 22 - 58 / 19 - 49 cm??? LV Ejection Fraction MOD BP 38.1 % >= 55 % LV Cardiac Index MOD BP 2044.2 cm???/min???m??? LV Diastolic Volume MOD 4C 101.8 cm??? LV Systolic Volume MOD 4C 65.1 cm??? LV Ejection Fraction MOD 4C 36.1 % LV Cardiac Index MOD 4C 2232.2 cm???/min???m??? LV Diastolic Length 4C 8.3 cm LV Systolic Length 4C 7.3 cm LV Diastolic Volume MOD 2C 64.1 cm??? LV Systolic Volume MOD 2C 42.1 cm??? LV Ejection Fraction MOD 2C 34.3 % LV Cardiac Index MOD 2C 1334.8 cm???/min???m??? LV Diastolic Length 2C 6.8 cm LV Systolic Length 2C 6.3 cm LA Volume 43.7 cm??? 18 - 58 / 22 - 52 cm??? LA Volume Index 28.8 cm???/m??? 16 - 28 cm???/m??? M-MODE Aortic Root Diameter MM 3.8 cm DOPPLER AI Peak Velocity 124.1 cm/s AI Peak Gradient 6.2 mmHg MV Area PHT 6.2 cm??? Mitral E Point Velocity 80.4 cm/s Mitral A Point Velocity 100.9 cm/s Mitral E to A Ratio 0.8 MV Deceleration Time 123.1 ms FINDINGS Left Ventricle Left ventricular ejection fraction is estimated at 20-25 %. Severly decreased left ventricular ejection fraction. Mid anterior, septal and lateral wall severe hypokinesis. Mild hypokinesis of the apex. Right Ventricle Normal right ventricular size. Unable to estimate the right ventricular systolic pressure. Right Atrium Normal right atrial size. No right atrial thrombus or mass seen. Left Atrium Normal left atrial size. No left atrial thrombus or mass present. Mitral Valve Structurally normal mitral valve. Mitral annular calcification. No mitral stenosis, regurgitation or prolapse. Aortic Valve Trileaflet aortic valve. No aortic valve stenosis or regurgitation. Tricuspid Valve Structurally normal tricuspid valve. No tricuspid stenosis, regurgitation or prolapse. Pulmonic Valve Structurally normal pulmonic valve. No pulmonic regurgitation. Pericardium No pericardial effusion. Aorta Mild aortic dilatation at the level of the sinuses of valsalva 38 mm CONCLUSIONS 1. Severely impaired low ventricular systolic function with segmental wall motion abnormality 2. No significant regurgitation on Doppler study Previewed by: Dr. Jackeline Marie MD (Electronically Signed) Final Date: 27 September 2024 11:40
--- NOTE | 2024-09-27 12:30 | PN ---
PROGRESS NOTE SUBJECTIVE: Darin is a 63-year-old gentleman, who is admitted to the hospital with acute anterior wall myocardial infarction, underwent emergent cardiac catheterization, but did not require any angioplasty as he only had a 30% to 40% stenosis involving the LAD. His ejection fraction is around 30% to 35%. He probably has a variant of takotsubo syndrome. He is currently on aspirin and Lipitor. I am adding Toprol and Cozaar. PHYSICAL EXAMINATION: GENERAL: Comfortable at rest. VITAL SIGNS: Stable. CHEST: Reveals occasional rhonchi bilaterally. HEART: Reveals first and second heart sounds. No gallop. EXTREMITIES: Exam of extremities did not reveal any edema. Right radial artery access site appears normal. ASSESSMENT: 1. Acute anterior wall myocardial infarction, status post catheterization and advised medical therapy. 2. Possible Takotsubo variant. PLAN: Adjusted the medications. MMRITAL / TRICIAN: [id number] /
--- NOTE | 2024-09-27 16:17 | P.PN ---
Subjective Progress Note Date: 09/27/24 63-year-old presented to the [facility] because of increased worsening shortness of breath and chest pain. Initial EKG showed ST elevations in lead V1 and V2. For this STEMI was activated. Patient was promptly evaluated at bedside. Bedside echocardiogram was performed which showed an EF of around 20 to 25% with anteroseptal wall hypokinesia. For this patient was taken for the cardiac catheterization. The patient had a troponin of 0.037. The patient completed his cardiac catheterization through a right radial artery access. The coronaries on angiogram were essentially consistent with nonocclusive disease. The patient was found to have mild diffuse luminal irregularities in the LAD and RCA and 50% mid PDA disease. He also had mild elevation of the left ventricular diastolic pressure. Noted he has cardiomyopathy with impaired LV function. During the process, the patient became progressively more short of breath. He was placed on a BiPAP and currently is on a BiPAP pressure of 12 over 5 cm of water with FiO2 of 50%. He is generating a tidal volume of around 450 and his current minute ventilation is at 7 L. Pulse ox is in order of 99%. This patient is known to me. Taking care of him approximately a year ago. Back then, the patient was hospitalized for an acute COPD exacerbation. 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 His most recent CAT scan of the chest that was done on 08/24/2022 showed advanced emphysematous changes along with chronic scarring and thickening of the major fissure on the right. The follow-up chest x-ray from this current admission showed similar chronic scarring in the right apex along with diffuse emphysematous changes in the upper lobes bilaterally. No airspace disease. No consolidation. He has significant hyperinflation. At this point in time, the patient is awake and alert and communicating. Admits to smoke cigarettes 1 pack of cigarettes a day. He is on oxygen also 2 L/min nasal cannula. His home medications include Spiriva and Dulera as maintenance and the patient has albuterol HFA that he uses on an as 28 basis. His white cell count of 5.5 with a hemoglobin 15.4 and a platelet count of 237. The viral screen was negative. No altered mentation. He is quite cachectic. Hemodynamically stable. His weight is 49 kg. On 09/27/2024, the patient is improved. Overnight, the patient was kept on a BiPAP with a pressure of 12 over 5 cm of water and FiO2 50%. This morning, the patient was already feeling better and the patient was switched to oxygen at 2 L/min nasal cannula. The patient denies having any significant complaints. Less bronchospastic and wheezy compared to yesterday the patient is currently on DuoNeb updrafts, IV Solu-Medrol 60 mg every 6 hours and the patient is also on a combination of Perforomist and Pulmicort nebulized treatments twice a day. IV fluids were switched to KVO. No chest pain. No altered mentation. There was a count of 4.8 with a heme of 13.5 and a platelet count of 228. Sodium is at 134, potassium is 4.4, BUN 23 creatinine 0.6. Troponin peaked at 0.7. The viral sc reen was negative. No other complaints otherwise for now. In terms of CHF management, the patient was started on beta-blockers and the patient is currently on metoprolol. Also started on Cozaar. Objective - Vital Signs Vital signs: Vital Signs Temp 98.4 F 09/27/24 08:00 Pulse 76 09/27/24 08:29 Resp 26 H 09/27/24 09:00 BP 120/70 09/27/24 09:00 Pulse Ox 93 L 09/27/24 09:00 FiO2 50 09/27/24 08:03 Intake & Output 09/26/24 09/27/24 09/27/24 18:59 06:59 18:59 Intake Total 140 2350 260 Output Total 875 325 Balance 140 1475 -65 Weight 49.442 kg 50.2 kg Intake: IV 140 450 Sodium Chloride 0.9% 1, 450 000 ml @ 75 mls/hr IV . [id number] [facility] Rx#:[id number] Intake, IV Titration 220 20 Amount Magnesium Sulfate-D5w Pmx 100 1 gm In Dextrose/Water 1 100ml.bag @ 100 mls/hr IVPB ONCE ONE Rx#: [id number] Sodium Chloride 0.9% 1, 120 20 000 ml @ 20 mls/hr IV . Q24H [facility] Rx#:[id number] Oral 1680 240 Output: Urine 875 325 Other: Voiding Method Urinal # Voids 1 1 - Exam The patient appeared very thin, cachectic, Calm and comfortable on 2 L of oxygen by nasal cannulaHead exam is unremarkable. No scleral icterus or corneal arcus noted. Neck is without jugular venous distension, thyromegaly, or carotid bruits. Carotid upstrokes are brisk bilaterally. Lungs are showing diminished breath sounds along with prolongation of the exhalation phase of breathing and diffuse expiratory wheezes heard throughout the lung horne bilaterally. The patient has a barrel chest. Cardiac exam reveals the PMI to be normally sized and situated. Rhythm is regular. First and second heart sounds normal. No murmurs, rubs or gallops. Abdominal exam reveals normal bowel sounds, no masses, no organomegaly and no aortic enlargement. Extremities are nonedematous and both femoral and pedal pulses are normal. The patient has a radial stop and the cath site is dry clean and intact. Examination of the skin revealed no evidence of significant rashes, suspicious appearing nevi or other concerning lesions. Neurologically, the patient is awake and alert and the patient does not have any focal neurological deficit. Cranial nerves are essentially intact. - Labs CBC & Chem 7: 09/27/24 05:19 09/27/24 05:19 Labs: Abnormal Lab Results - Last 24 Hours (Table) 09/26/24 09/26/24 09/27/24 Range/Units 17:16 18:30 05:19 Sodium 134 L (137-145) mmol/L BUN 23 H (9-20) mg/dL Glucose 138 H (74-99) mg/dL POC Glucose (mg/dL) 116 H (70-110) mg/dL Troponin I 0.037 H* (0.000-0.034) ng/mL Total Protein 6.2 L (6.3-8.2) g/dL Assessment and Plan Plan: Acute ST segment elevation myocardial infarction, limited troponin elevation and a cardiac catheterization showed mild diffuse luminal irregularities involving the LAD and RCA with a 50% mid PDA disease. Nevertheless, this type of anatomy did not require any intervention or stenting. The patient is currently hemodynamically stable. Cardiac rhythm is sinus. Free of any chest pain. Cardiomyopathy with an ejection fraction of 30 to 35% Acute on chronic shortness of breath secondary to COPD exacerbation. Patient is improved and the patient is currently off the BiPAP currently on 2 L of O2 nasal cannula Advanced COPD with chronic emphysematous changes, predominantly in the upper lobes along with chronic scarring in the right major fissure Previous history of pneumothorax Chronic hypoxic respiratory maintained on oxygen 2 L/min nasal cannula Chronic smoking Chronic weight loss and cachexia and a body mass index of 16 History of prostate cancer, with a previous prostatectomy Hyperlipidemia Depression Generalized deconditioning Plan Keep the patient on oxygen 2 L DuoNeb nebulized treatments 4 times daily and as needed Perforomist and Pulmicort nebulized treatments twice a day IV Solu-Medrol 60 mg every 6 hours IV fluids to KVO Viral screen was negative Continue aspirin Lipitor/statins 40 mg p.o. daily Zoloft Prilosec 20 mg p.o. daily Cozaar 25 mg p.o. daily Metoprolol 25 mg p.o. twice daily Will continue to follow. Evaluation was done at 31 minutes Time with Patient: Greater than 30
[2024-09-27 16:28] LABS: Glucose,Whole Blood 139 mg/dL (70-110)
--- NOTE | 2024-09-27 16:43 | P.HPIM ---
History of Present Illness H&P Date: 09/26/24 Chief Complaint: Chest tightness Pleasant 63-year-old patient who follows with Dr. Mancia. Sports Nutritionist Dr. Agosto. Chronic stable medical conditions include GERD, hyperlipidemia, osteoarthritis , anxiety depression. Smoking at least 1 pack a day. At baseline patient remains short of breath. Has a cough. Yellow sputum. For 2 days been having anterior chest wall pain. Also left precordial pain. Pain going up to his neck. Also some pleuritic component worse with deep breaths. Short of breath. Wheezing. Patient was taken to the cardiac Finance Admin by Dr. Rivero from cardiology. EF was found to be 30 to 35%. With nonobstructive disease more details in his notes. Patient postprocedure admitted to the ICU. Currently on BiPAP with settings of 12/5/50%. Patient quite a bit short of breath. Review of systems: GEN.: Weight loss, decreased appetite EYES: None HEENT: None NECK: None RESPIRATORY: As above CARDIOVASCULAR: As above GASTROINTESTINAL: None GENITOURINARY: None MUSCULOSKELETAL: Some joint pains LYMPHATICS: None HEMATOLOGICAL: None PSYCHIATRY: Anxious NEUROLOGICAL: None Past medical history to include: COPD, GERD, hyperlipidemia, osteoarthritis, prostate cancer, anxiety depression Social history: Smokes a pack and a pack and a half a day since age 16. No alcohol. Lives with his . Patient is to work with Ortho conditioning. Physical examination: VITAL SIGNS: 96.5, 70, 12, 105/74, 100% on BiPAP GENERAL: generalized wasting of muscles loss of subcutaneous fat. Short of breath, tired EYES: Pupils equal. Conjunctiva normal. HEENT: External appearance of nose and ears normal, oral cavity grossly normal. NECK: JVD not raised; masses not palpable. HEART: First and second heart sounds are normal; no edema. LUNGS: Not able to speak in full sentences. Accessory muscles working. Respiratory rate increased, diminished breath sounds, prolonged expiration ABDOMEN: Soft, nontender, liver spleen not palpable, no masses palpable. PSYCH: [Alert and oriented x3; mood and affect anxious MUSCULOSKELETAL:No Clubbing/cyanosis; decreased muscle mass and increased, bony prominences, OA INVESTIGATIONS, reviewed in the clinical context: September 26, 2024: White count 5.5 hemoglobin 15.4 platelet 237 Troponin I 0.037 Influenza type A, type B, RSV, SARS-CoV-2: Not detected EKG tracing personally reviewed by me-ST elevation in anterior leads. Depression in inferolateral leads. Chest x-ray film personally reviewed by me-severe hyperinflation and emphysematous changes Assessment and plan: -Acute non-Q wave [place]. Cardiac catheterization done by Dr. Rivero. -Nonobstructive coronary artery disease with mild diffuse luminal irregularities in LAD and RCA. 50% mid PDA disease. Aspirin. Lipitor. -Cardiomyopathy EF 30 to 35%. -Acute severe COPD exacerbation in a current smoker: IV Solu-Medrol 60 mg every Q8 DuoNeb every 4, nebulized Pulmicort 1 mg every 12. Nebulized Perforomist -Acute tracheobronchitis Doxycycline -Acute hypoxic respiratory failure from COPD Currently on BiPAP -Chronic nicotine dependence, cigarettes smoker Nicotine patch -Severe protein calorie malnutrition Ensure 1 can by mouth 3 times a day. -Hyperlipidemia Lipitor 40 mg daily at bedtime -Chronic insomnia Melatonin -GERD Prilosec -Anxiety depression Zoloft -Primary osteoarthritis Tylenol as needed -Full code Past Medical History Past Medical History: Cancer, COPD, GERD/Reflux, Hyperlipidemia, Osteoarthritis (OA), Pneumonia, Prostate Disorder Additional Past Medical History / Comment(s): Hx Prostate cancer, bilateral hand fx in past History of Any Multi-Drug Resistant Organisms: MRSA Date of last positivie culture/infection: 02/28/18 MDRO Source:: MRSA URINE Past Surgical History: Hernia Repair, Prostate Surgery Additional Past Surgical History / Comment(s): colonoscopy, surgery for punctured lung, Past Anesthesia/Blood Transfusion Reactions: No Reported Reaction Past Psychological History: Anxiety, Depression Smoking Status: Current every day smoker Past Alcohol Use History: None Reported Additional Past Alcohol Use History / Comment(s): smokes 1-1.5 PPD since age 16. Past Drug Use History: None Reported - Past Family History Father Family Medical History: Cancer Additional Family Medical History / Comment(s): ; prostate CA Mother Family Medical History: Cancer Additional Family Medical History / Comment(s): , lung CA Brother(s) Family Medical History: Cancer Additional Family Medical History / Comment(s): Prostate cancer, . Medications and Allergies Home Medications Medication Instructions Recorded Confirmed Type Atorvastatin [Lipitor] 40 mg PO DAILY 06/04/16 09/26/24 History Omeprazole [PriLOSEC] 20 mg PO DAILY 06/04/16 09/26/24 History Mometasone/Formoterol [Dulera 200 2 puff INHALATION RT-BID 10/08/23 09/26/24 History Mcg-5 Mcg Inhaler] Sertraline [Zoloft] 25 mg PO DAILY 10/08/23 09/26/24 History Albuterol Sulfate [Ventolin HFA] 2 puff INHALATION RT-Q4H 09/26/24 09/26/24 His tory Spiriva Respimat 1.25mcg Actuation 2 puff INHALATION RT-DAILY 09/26/24 09/26/24 History Mist Tamsulosin [Flomax] 0.4 mg PO DAILY 09/26/24 09/26/24 History Allergies Allergy/AdvReac Type Severity Reaction Status Date / Time No Known Allergies Allergy Verified 09/26/24 17:42 Physical Exam Vitals: Vital Signs Temp Pulse Resp BP Pulse Ox FiO2 09/26/24 19:31 50 09/26/24 19:00 96.5 F L 70 12 105/74 100 50 09/26/24 18:32 50 09/26/24 17:06 50 09/26/24 17:04 97.4 F L 97 24 123/82 100 Intake and Output 09/26/24 09/26/24 09/26/24 06:59 14:59 22:59 Intake Total 215 Balance 215 Intake: IV 215 Sodium Chloride 0.9% 1, 75 000 ml @ 75 mls/hr IV . [id number] [facility] Rx#:[id number] Other: Weight 49.442 kg Results CBC & Chem 7: 09/27/24 05:19 09/27/24 05:19 Labs: Abnormal Lab Results - Last 24 Hours (Table) 09/26/24 09/26/24 Range/Units 17:16 18:30 POC Glucose (mg/dL) 116 H (70-110) mg/dL Troponin I 0.037 H* (0.000-0.034) ng/mL Thrombosis Risk Factor Assmnt - Choose All That Apply Each Risk Factor Represents 2 Points: Age 61-74 years Thrombosis Risk Factor Assessment Total Risk Factor Score: 2 Thrombosis Risk Factor Assessment Level: Low Risk
--- NOTE | 2024-09-27 16:51 | P.PN ---
Progress Note - Text Progress Note Date: 09/27/24 Chief Complaint: Chest tightness Pleasant 63-year-old patient who follows with Dr. Mancia. Car Wrecker Dr. Agosto. Chronic stable medical conditions include GERD, hyperlipidemia, osteoarthritis , anxiety depression. Smoking at least 1 pack a day. At baseline patient remains short of breath. Has a cough. Yellow sputum. For 2 days been having anterior chest wall pain. Also left precordial pain. Pain going up to his neck. Also some pleuritic component worse with deep breaths. Short of breath. Wheezing. Patient was taken to the cardiac Health Aide by Dr. Rivero from cardiology. EF was found to be 30 to 35%. With nonobstructive disease more details in his notes. Patient postprocedure admitted to the ICU. Currently on BiPAP with settings of 12/5/50%. Patient quite a bit short of breath. September 27: ICU. Sitting up in bed. 2 L nasal cannula. Breathing a bit better. Had all his breakfast. Tired. Consult dietitian. Ensure added. Daily Active Medications Acetaminophen (Acetaminophen Tab 325 Mg Tab) 650 mg PO Q6HR PRN PRN Reason: Mild to Moderate Pain (1 - 6) Last Admin: 09/27/24 03:03 Dose: 650 mg Albuterol/Ipratropium (Ipratropium-Albuterol 3 Ml Neb) 3 ml INHALATION RT-Q4H [facility] Last Admin: 09/27/24 15:28 Dose: 3 ml Aspirin (Aspirin 81 Mg) 81 mg PO DAILY [facility] Last Admin: 09/27/24 09:30 Dose: 81 mg Atorvastatin Calcium (Atorvastatin 40 Mg Tab) 40 mg PO HS [facility] Last Admin: 09/26/24 21:39 Dose: 40 mg Budesonide (Budesonide 1 Mg/2 Ml Nebu) 1 mg INHALATION RT-BID [facility] Last Admin: 09/27/24 08:02 Dose: 1 mg Doxycycline Hyclate (Doxycycline 100 Mg Tablet) 100 mg PO BID [facility]; Protocol Last Admin: 09/27/24 09:30 Dose: 100 mg Enoxaparin Sodium (Enoxaparin 40 Mg/0.4 Ml Syringe) 40 mg SQ [facility] Last Admin: 09/26/24 21:40 Dose: 40 mg Formoterol Fumarate (Formoterol Fumarate 20 Mcg/2 Ml Nebu) 20 mcg INHALATION RT-BID [facility] Last Admin: 09/27/24 08:02 Dose: 20 mcg Sodium Chloride (Saline 0.9%) 1,000 mls @ 20 mls/hr IV .Q24H [facility] Last Admin: 09/26/24 18:52 Dose: Not Given Losartan Potassium (Losartan 25 Mg Tab) 25 mg PO DAILY [facility] Last Admin: 09/27/24 11:01 Dose: 25 mg Methylprednisolone Sodium Succinate (Methylprednisolone Sod Succi 125 Mg/2 Ml Vial) 60 mg IV Q6HR [facility] Last Admin: 09/27/24 11:01 Dose: 60 mg Metoprolol Succinate (Metoprolol Succinate (Er) 25 Mg Tab.Er.24h) 25 mg PO DAILY [facility] Last Admin: 09/27/24 11:01 Dose: 25 mg Miscellaneous Information (Rx Info: Iv Contrast Was Given 1 Each Misc) 1 each MISCELLANE DAILY PRN PRN Reason: Per Protocol Stop: 09/28/24 18:17 Miscellaneous Information (Magnesium Replacement Protocol 1 Each Misc) 1 each M ISCELLANE DAILY PRN; Protocol PRN Reason: Per Protocol Morphine Sulfate (Morphine Sulfate 2 Mg/Ml Syringe) 2 mg IVP Q6HR PRN PRN Reason: Severe Pain (Scale 7 to 10) Last Admin: 09/27/24 04:01 Dose: 2 mg Naloxone HCl (Naloxone 0.4 Mg/Ml 1 Ml Vial) 0.2 mg IV Q2M PRN PRN Reason: Opioid Reversal Nicotine (Nicotine 21mg/24hr Patch) 1 patch TRANSDERM DAILY [facility] Last Admin: 09/27/24 09:30 Dose: 1 patch Pantoprazole Sodium (Pantoprazole 40 Mg Tablet) 40 mg PO AC-BRKFST [facility] Last Admin: 09/27/24 06:21 Dose: 40 mg Sertraline HCl (Sertraline 25 Mg Tab) 25 mg PO DAILY [facility] Last Admin: 09/27/24 09:30 Dose: 25 mg Tamsulosin HCl (Tamsulosin 0.4 Mg Cap.Er.24h) 0.4 mg PO DAILY [facility] Last Admin: 09/27/24 09:30 Dose: 0.4 mg Past medical history to include: COPD, GERD, hyperlipidemia, osteoarthritis, prostate cancer, anxiety depression Social history: Smokes a pack and a pack and a half a day since age 16. No alcohol. Lives with his . Patient is to work with Ortho conditioning. Physical examination: VITAL SIGNS: 98.7, 90, 22, 121 x 76, 95% 2 L GENERAL: Sitting up in bed, generalized wasting of muscles loss of subcutaneous fat. Short of breath, tired EYES: Pupils equal. Conjunctiva normal. HEENT: External appearance of nose and ears normal, oral cavity grossly normal. NECK: JVD not raised; masses not palpable. HEART: First and second heart sounds are normal; no edema. LUNGS: Respiratory rate increased, diminished breath sounds, prolonged expiration ABDOMEN: Soft, nontender, liver spleen not palpable, no masses palpable. PSYCH: [Alert and oriented x3; mood and affect anxious MUSCULOSKELETAL:No Clubbing/cyanosis; decreased muscle mass and increased, bony prominences, OA INVESTIGATIONS, reviewed in the clinical context: 2D echo: EF 20-25%. Mid anterior septal lateral wall severe hypokinesis. September 27: Sodium 134 potassium 4.4 creatinine 0.69 September 26, 2024: White count 5.5 hemoglobin 15.4 platelet 237 Troponin I 0.037, 0.715 Influenza type A, type B, RSV, SARS-CoV-2: Not detected EKG tracing personally reviewed by me-ST elevation in anterior leads. Depression in inferolateral leads. Chest x-ray film personally reviewed by me-severe hyperinflation and emphysematous changes Assessment and plan: -Acute anterior wall non-Q wave [place]. Cardiac catheterization done by Dr. Rivero. -Probable Takotsubo variant -Nonobstructive coronary artery disease with mild diffuse luminal irregularities in LAD and RCA. 50% mid PDA disease. Aspirin. Lipitor. -Ischemic cardiomyopathy EF 20-25 %. Cozaar. Toprol-XL. Add Aldactone 25 mg a day -Acute severe COPD exacerbation in a current smoker: Decrease IV Solu-Medrol 40 mg every Q8 DuoNeb every 4, nebulized Pulmicort 1 mg every 12. Nebulized Perforomist -Acute tracheobronchitis Doxycycline -Acute hypoxic respiratory failure from COPD Initially on BiPAP. Now on 2 L oxygen -Chronic nicotine dependence, cigarettes smoker Nicotine patch -Severe protein calorie malnutrition Ensure 1 can by mouth 3 times a day. Consult dietitian -Hyperlipidemia Lipitor 40 mg daily at bedtime -Chronic insomnia Melatonin -GERD Prilosec -Anxiety depression Zoloft -Primary osteoarthritis Tylenol as needed -Full code Past Medical History Past Medical History: Cancer, COPD, GERD/Reflux, Hyperlipidemia, Osteoarthritis (OA), Pneumonia, Prostate Disorder Additional Past Medical History / Comment(s): Hx Prostate cancer, bilateral hand fx in past History of Any Multi-Drug Resistant Organisms: MRSA Date of last positivie culture/infection: 02/28/18 MDRO Source:: MRSA URINE Past Surgical History: Hernia Repair, Prostate Surgery Additional Past Surgical History / Comment(s): colonoscopy, surgery for punctured lung, Past Anesthesia/Blood Transfusion Reactions: No Reported Reaction Past Psychological History: Anxiety, Depression Smoking Status: Current every day smoker Past Alcohol Use History: None Reported Additional Past Alcohol Use History / Comment(s): smokes 1-1.5 PPD since age 16. Past Drug Use History: None Reported
[2024-09-27] MEDS: methylPREDNISolone SOD SUCCI 40 MG/ML 1 ML VIAL IV SCH (17:31)
[2024-09-27] MEDS: SPIRONOLACTONE 25 MG TAB PO SCH (17:31)
[2024-09-27 20:10] LABS: Glucose,Whole Blood 179 mg/dL (70-110)
[2024-09-27] MEDS: INSULIN LISPRO (HumaLOG) 100 UNIT/ML 10 mL VL SQ SCH (20:39)
[2024-09-28 06:00] LABS: Glucose,Whole Blood 140 mg/dL (70-110)
--- NOTE | 2024-09-28 10:40 | P.PN ---
Subjective Progress Note Date: 09/28/24 This is a 63-year-old male admitted to the hospital with an acute anterior wall myocardial infarction, underwent emergent cardiac catheterization, but did not require any angioplasty as he only had a 30 to 40% stenosis involving the LAD. EF was 30 to 35% and most likely a variant of Takotsubo syndrome. Blood pressure 100/58, heart rate 75, pulse ox 98% on 2 L nasal cannula. No repeat blood work today. Dr. Us reviewed the echocardiogram results with the patient. Echocardiogram reveals EF of 20 to 25% with segmental wall motion abnormality. No significant regurgitation on Doppler study. Physical examination: Gen: This is a 63-year-old male resting in bed and appears comfortable. VS: reviewed LUNGS: Occasional rhonchi. No intercostal retractions. HEART: First and second heart sounds. No gallop. No murmur. EXTREMITIES: No pedal edema. No calf tenderness. NEUROLOGICAL: Patient is awake, alert and oriented x3. Assessment: Acute anterior wall myocardial infarction, status post cardiac catheterization advise medical therapy Possible Takotsubo variant Nonischemic cardiomyopathy Plan: Continue current cardiac medications: Aspirin 81 mg daily, atorvastatin, losartan, Toprol XL 25 mg daily, Aldactone 25 mg daily Repeat limited echocardiogram tomorrow to assess LV function Smoking cessation. Patient will be provided the [place] quit line information at discharge. Nurse practitioner note has been reviewed, I agree with documented findings and plan of care. Patient was seen and examined. Objective - Vital Signs Vital signs: Vital Signs Temp 97.6 F 09/28/24 03:52 Pulse 72 09/28/24 08:49 Resp 16 09/28/24 03:52 BP 100/58 09/28/24 03:52 Pulse Ox 96 09/28/24 08:23 FiO2 50 09/27/24 08:03 Intake & Output 09/27/24 09/28/24 09/28/24 18:59 06:59 18:59 Intake Total 440 Output Total 675 Balance -235 Weight 50.2 kg 48.2 kg Intake: Intake, IV Titration 20 Amount Sodium Chloride 0.9% 1, 20 000 ml @ 20 mls/hr IV . Q24H [facility] Rx#:[id number] Oral 420 Output: Urine 675 Other: Voiding Method Urinal Urinal # Voids 0 2 # Bowel Movements 1 - Labs CBC & Chem 7: 09/27/24 05:19 09/27/24 05:19 Labs: Abnormal Lab Results - Last 24 Hours (Table) 09/27/24 09/27/24 09/27/24 Range/Units 10:51 16:27 20:09 POC Glucose (mg/dL) 139 H 179 H (70-110) mg/dL Troponin I 0.715 H* (0.000-0.034) ng/mL 09/28/24 Range/Units 05:59 POC Glucose (mg/dL) 140 H (70-110) mg/dL Troponin I (0.000-0.034) ng/mL
[2024-09-28 11:19] LABS: Glucose,Whole Blood 151 mg/dL (70-110)
[2024-09-28 11:39] VITALS: BMI 16.6
[2024-09-28 16:26] LABS: Glucose,Whole Blood 150 mg/dL (70-110)
--- NOTE | 2024-09-28 19:22 | P.PN ---
Subjective Progress Note Date: 09/28/24 63-year-old presented to the [facility] because of increased worsening shortness of breath and chest pain. Initial EKG showed ST elevations in lead V1 and V2. For this STEMI was activated. Patient was promptly evaluated at bedside. Bedside echocardiogram was performed which showed an EF of around 20 to 25% with anteroseptal wall hypokinesia. For this patient was taken for the cardiac catheterization. The patient had a troponin of 0.037. The patient completed his cardiac catheterization through a right radial artery access. The coronaries on angiogram were essentially consistent with nonocclusive disease. The patient was found to have mild diffuse luminal irregularities in the LAD and RCA and 50% mid PDA disease. He also had mild elevation of the left ventricular diastolic pressure. Noted he has cardiomyopathy with impaired LV function. During the process, the patient became progressively more short of breath. He was placed on a BiPAP and currently is on a BiPAP pressure of 12 over 5 cm of water with FiO2 of 50%. He is generating a tidal volume of around 450 and his current minute ventilation is at 7 L. Pulse ox is in order of 99%. This patient is known to me. Taking care of him approximately a year ago. Back then, the patient was hospitalized for an acute COPD exacerbation. 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 His most recent CAT scan of the chest that was done on 08/24/2022 showed advanced emphysematous changes along with chronic scarring and thickening of the major fissure on the right. The follow-up chest x-ray from this current admission showed similar chronic scarring in the right apex along with diffuse emphysematous changes in the upper lobes bilaterally. No airspace disease. No consolidation. He has significant hyperinflation. At this point in time, the patient is awake and alert and communicating. Admits to smoke cigarettes 1 pack of cigarettes a day. He is on oxygen also 2 L/min nasal cannula. His home medications include Spiriva and Dulera as maintenance and the patient has albuterol HFA that he uses on an as 28 basis. His white cell count of 5.5 with a hemoglobin 15.4 and a platelet count of 237. The viral screen was negative. No altered mentation. He is quite cachectic. Hemodynamically stable. His weight is 49 kg. On 09/27/2024, the patient is improved. Overnight, the patient was kept on a BiPAP with a pressure of 12 over 5 cm of water and FiO2 50%. This morning, the patient was already feeling better and the patient was switched to oxygen at 2 L/min nasal cannula. The patient denies having any significant complaints. Less bronchospastic and wheezy compared to yesterday the patient is currently [facility], IV Solu-Medrol 60 mg every 6 hours and the patient is also on a combination of Perforomist and Pulmicort nebulized treatments twice a day. IV fluids were switched to KVO. No chest pain. No altered mentation. There was a count of 4.8 with a heme of 13.5 and a platelet count of 228. Sodium is at 134, potassium is 4.4, BUN 23 creatinine 0.6. Troponin peaked at 0.7. The viral sc reen was negative. No other complaints otherwise for now. In terms of CHF management, the patient was started on beta-blockers and the patient is currently on metoprolol. Also started on Cozaar. 09/28/2024, seen the patient for a follow-up. Patient is currently off the BiPAP.Still bronchospastic and wheezy yet overall less short of breath compared to yesterday. No chest pain.remains on bronchodilators. Remains on steroids. He is currently on episode of Medrol 4 mg every 12 hours. In terms of his cardiomyopathy, the patient is currently on a combination of metoprolol 25 mg p.o. twice a day, Aldactone 25 mg p.o. daily, and losartan 25 mg p.o. daily. He is on Lovenox for DVT prophylaxis. He is on aspirin and Plavix. His blood work showed is still pending from today. He is on 2 L of oxygen by nasal cannula. Calm and comfortable and communicating and his pulse ox is 98%. Objective - Vital Signs Vital signs: Vital Signs Temp 97.6 F 09/28/24 08:00 Pulse 72 09/28/24 08:49 Resp 18 09/28/24 08:00 BP 108/64 09/28/24 08:00 Pulse Ox 96 09/28/24 08:23 FiO2 50 09/27/24 08:03 Intake & Output 09/27/24 09/28/24 09/28/24 18:59 06:59 18:59 Intake Total 440 180 Output Total 675 Balance -235 180 Weight 50.2 kg 48.2 kg Intake: Intake, IV Titration 20 Amount Sodium Chloride 0.9% 1, 20 000 ml @ 20 mls/hr IV . Q24H [facility] Rx#:[id number] Oral 420 180 Output: Urine 675 Other: Voiding Method Urinal Urinal # Voids 0 2 # Bowel Movements 1 - Exam The patient appeared very thin, cachectic, Calm and comfortable on 2 L of oxygen by nasal cannulaHead exam is unremarkable. No scleral icterus or corneal arcus noted. Neck is without jugular venous distension, thyromegaly, or carotid bruits. Carotid upstrokes are brisk bilaterally. Lungs are showing diminished breath sounds along with prolongation of the exhalation phase of breathing and diffuse expiratory wheezes heard throughout the lung horne bilaterally. The patient has a barrel chest. Cardiac exam reveals the PMI to be normally sized and situated. Rhythm is regular. First and second heart sounds normal. No murmurs, rubs or gallops. Abdominal exam reveals normal bowel sounds, no masses, no organomegaly and no aortic enlargement. Extremities are nonedematous and both femoral and pedal pulses are normal. The patient has a radial stop and the cath site is dry clean and intact. Examination of the skin revealed no evidence of significant rashes, suspicious appearing nevi or other concerning lesions. Neurologically, the patient is awake and alert and the patient does not have any focal neurological deficit. Cranial nerves are essentially intact. - Labs CBC & Chem 7: 09/27/24 05:19 09/27/24 05:19 Labs: Abnormal Lab Results - Last 24 Hours (Table) 09/27/24 09/27/24 09/28/24 Range/Units 16:27 20:09 05:59 POC Glucose (mg/dL) 139 H 179 H 140 H (70-110) mg/dL 09/28/24 Range/Units 11:17 POC Glucose (mg/dL) 151 H (70-110) mg/dL Assessment and Plan Plan: Acute ST segment elevation myocardial infarction, limited troponin elevation and a cardiac catheterization showed mild diffuse luminal irregularities involving the LAD and RCA with a 50% mid PDA disease. Nevertheless, this type of anatomy did not require any intervention or stenting. The patient is currently hemodynamically stable. Cardiac rhythm is sinus. Free of any chest pain. Cardiomyopathy with an ejection fraction of 30 to 35% Acute on chronic shortness of breath secondary to COPD exacerbation. Patient is improved and the patient is currently off the BiPAP currently on 2 L of O2 nasal cannula Advanced COPD with chronic emphysematous changes, predominantly in the upper lobes along with chronic scarring in the right major fissure Previous history of pneumothorax Chronic hypoxic respiratory maintained on oxygen 2 L/min nasal cannula Chronic smoking Chronic weight loss and cachexia and a body mass index of 16 History of prostate cancer, with a previous prostatectomy Hyperlipidemia Depression Generalized deconditioning Plan Clinically improving and less bronchospastic and wheezy compared to yesterday Keep the patient on oxygen 2 L DuoNeb nebulized treatments 4 times daily and as needed Perforomist and Pulmicort nebulized treatments twice a day IV Solu-Medrol 40 mg every 8 hours IV fluids to KVO Viral screen was negative Continue aspirin Lipitor/statins 40 mg p.o. daily Zoloft Prilosec 20 mg p.o. daily Cozaar 25 mg p.o. daily Metoprolol 25 mg p.o. twice daily Aldactone 25 mg p.o. daily Will continue to follow. Evaluation was done at 31 minutes Time with Patient: Greater than 30
--- NOTE | 2024-09-28 20:04 | P.PN ---
Progress Note - Text Progress Note Date: 09/28/24 Chief Complaint: Chest tightness Pleasant 63-year-old patient who follows with Dr. Mancia. Satellite Communications Operator Dr. Agosto. Chronic stable medical conditions include GERD, hyperlipidemia, osteoarthritis , anxiety depression. Smoking at least 1 pack a day. At baseline patient remains short of breath. Has a cough. Yellow sputum. For 2 days been having anterior chest wall pain. Also left precordial pain. Pain going up to his neck. Also some pleuritic component worse with deep breaths. Short of breath. Wheezing. Patient was taken to the cardiac Offset Press Operator Helper by Dr. Rivero from cardiology. EF was found to be 30 to 35%. With nonobstructive disease more details in his notes. Patient postprocedure admitted to the ICU. Currently on BiPAP with settings of 12/5/50%. Patient quite a bit short of breath. September 27: ICU. Sitting up in bed. 2 L nasal cannula. Breathing a bit better. Had all his breakfast. Tired. Consult dietitian. Ensure added. September 28: Moved to the telemetry floor. On 2 L nasal cannula. Breathing better. Up in chair. Eating well. Limited 2D echo tomorrow. Cut back Solu- Medrol Active Medications Acetaminophen (Acetaminophen Tab 325 Mg Tab) 650 mg PO Q6HR PRN PRN Reason: Mild to Moderate Pain (1 - 6) Last Admin: 09/27/24 03:03 Dose: 650 mg Albuterol/Ipratropium (Ipratropium-Albuterol 3 Ml Neb) 3 ml INHALATION RT-Q4H [facility] Last Admin: 09/28/24 15:59 Dose: 3 ml Aspirin (Aspirin 81 Mg) 81 mg PO DAILY [facility] Last Admin: 09/28/24 10:09 Dose: 81 mg Atorvastatin Calcium (Atorvastatin 40 Mg Tab) 40 mg PO HS [facility] Last Admin: 09/27/24 20:39 Dose: 40 mg Budesonide (Budesonide 1 Mg/2 Ml Nebu) 1 mg INHALATION RT-BID [facility] Last Admin: 09/28/24 08:21 Dose: 1 mg Doxycycline Hyclate (Doxycycline 100 Mg Tablet) 100 mg PO BID [facility]; Protocol Last Admin: 09/28/24 10:09 Dose: 100 mg Enoxaparin Sodium (Enoxaparin 40 Mg/0.4 Ml Syringe) 40 mg SQ HS [facility] Last Admin: 09/27/24 20:40 Dose: 40 mg Formoterol Fumarate (Formoterol Fumarate 20 Mcg/2 Ml Nebu) 20 mcg INHALATION RT-BID [facility] Last Admin: 09/28/24 08:21 Dose: 20 mcg Insulin Human Lispro (Insulin Lispro (Humalog) 100 Unit/Ml 10 Ml Vl) 0 unit SQ ACHS [facility]; Protocol Last Admin: 09/28/24 16:48 Dose: Not Given Losartan Potassium (Losartan 25 Mg Tab) 25 mg PO DAILY [facility] Last Admin: 09/28/24 10:08 Dose: 25 mg Methylprednisolone Sodium Succinate (Methylprednisolone Sod Succi 40 Mg/Ml 1 Ml Vial) 40 mg IV Q8H [facility] Last Admin: 09/28/24 17:27 Dose: 40 mg Metoprolol Succinate (Metoprolol Succinate (Er) 25 Mg Tab.Er.24h) 25 mg PO DAILY [facility] Last Admin: 09/28/24 10:09 Dose: 25 mg Miscellaneous Information (Magnesium Replacement Protocol 1 Each Misc) 1 each MISCELLANE DAILY PRN; Protocol PRN Reason: Per Protocol Morphine Sulfate (Morphine Sulfate 2 Mg/Ml Syringe) 2 mg IVP Q6HR PRN PRN Reason: Severe Pain (Scale 7 to 10) Last Admin: 09/27/24 04:01 Dose: 2 mg Naloxone HCl (Naloxone 0.4 Mg/Ml 1 Ml Vial) 0.2 mg IV Q2M PRN PRN Reason: Opioid Reversal Nicotine (Nicotine 21mg/24hr Patch) 1 patch TRANSDERM DAILY [facility] Last Admin: 09/28/24 06:26 Dose: 1 patch Pantoprazole Sodium (Pantoprazole 40 Mg Tablet) 40 mg PO AC-BRKFST [facility] Last Admin: 09/28/24 06:25 Dose: 40 mg Sertraline HCl (Sertraline 25 Mg Tab) 25 mg PO DAILY [facility] Last Admin: 09/28/24 10:09 Dose: 25 mg Spironolactone (Spironolactone 25 Mg Tab) 25 mg PO DAILY [facility] Last Admin: 09/28/24 10:09 Dose: 25 mg Tamsulosin HCl (Tamsulosin 0.4 Mg Cap.Er.24h) 0.4 mg PO DAILY [facility] Last Admin: 09/28/24 10:09 Dose: 0.4 mg Past medical history to include: COPD, GERD, hyperlipidemia, osteoarthritis, prostate cancer, anxiety depression Social history: Smokes a pack and a pack and a half a day since age 16. No alcohol. Lives with his . Patient is to work with Ortho conditioning. Physical examination: VITAL SIGNS: 97.9, 80, 18, 106 x 62, 98% 2 L GENERAL: Sitting up in bed, generalized wasting of muscles loss of subcutaneous fat. Less short of breath EYES: Pupils equal. Conjunctiva normal. HEENT: External appearance of nose and ears normal, oral cavity grossly normal. NECK: JVD not raised; masses not palpable. HEART: First and second heart sounds are normal; no edema. LUNGS: Respiratory rate increased, diminished breath sounds, prolonged expiration ABDOMEN: Soft, nontender, liver spleen not palpable, no masses palpable. PSYCH: [Alert and oriented x3; mood and affect anxious MUSCULOSKELETAL:No Clubbing/cyanosis; decreased muscle mass and increased, bony prominences, OA INVESTIGATIONS, reviewed in the clinical context: 2D echo: EF 20-25%. Mid anterior septal lateral wall severe hypokinesis. September 27: Sodium 134 potassium 4.4 creatinine 0.69 September 26, 2024: White count 5.5 hemoglobin 15.4 platelet 237 Troponin I 0.037, 0.715 Influenza type A, type B, RSV, SARS-CoV-2: Not detected EKG tracing personally reviewed by me-ST elevation in anterior leads. Depression in inferolateral leads. Chest x-ray film personally reviewed by me-severe hyperinflation and emphysematous changes Assessment and plan: -Acute anterior wall non-Q wave DC. Cardiac catheterization done by Dr. Rivero. -Probable Takotsubo variant -Nonobstructive coronary artery disease with mild diffuse luminal irregularities in LAD and RCA. 50% mid PDA disease. Aspirin. Lipitor. -Ischemic cardiomyopathy EF 20-25 %. Cozaar. Toprol-XL. Aldactone 25 mg a day -Acute severe COPD exacerbation in a current smoker: Improving Decrease IV Solu-Medrol 40 mg Q12, decrease DuoNeb 4 times daily, nebulized Pulmicort 1 mg every 12. Nebulized Perforomist -Acute tracheobronchitis Doxycycline -Acute hypoxic respiratory failure from COPD: Better Initially on BiPAP. Now on 2 L oxygen -Chronic nicotine dependence, cigarettes smoker Nicotine patch -Severe protein calorie malnutrition Ensure 1 can by mouth 3 times a day. Consult dietitian -Hyperlipidemia Lipitor 40 mg daily at bedtime -Chronic insomnia Melatonin -GERD Prilosec -Anxiety depression Zoloft -Primary osteoarthritis Tylenol as needed -Full code Increase activity. Decrease Solu-Medrol. Decrease DuoNeb. Limited 2D echo tomorrow. Past Medical History Past Medical History: Cancer, COPD, GERD/Reflux, Hyperlipidemia, Osteoarthritis (OA), Pneumonia, Prostate Disorder Additional Past Medical History / Comment(s): Hx Prostate cancer, bilateral hand fx in past History of Any Multi-Drug Resistant Organisms: MRSA Date of last positivie culture/infection: 02/28/18 MDRO Source:: MRSA URINE Past Surgical History: Hernia Repair, Prostate Surgery Additional Past Surgical History / Comment(s): colonoscopy, surgery for punctured lung, Past Anesthesia/Blood Transfusion Reactions: No Reported Reaction Past Psychological History: Anxiety, Depression Smoking Status: Current every day smoker Past Alcohol Use History: None Reported Additional Past Alcohol Use History / Comment(s): smokes 1-1.5 PPD since age 16. Past Drug Use History: None Reported
[2024-09-28 20:26] LABS: Glucose,Whole Blood 114 mg/dL (70-110)
[2024-09-28] MEDS: IPRATROPIUM-ALBUTEROL 3 ML NEB INHALATION SCH (21:15)
[2024-09-29 06:21] LABS: Glucose,Whole Blood 108 mg/dL (70-110)
[2024-09-29] MEDS: methylPREDNISolone SOD SUCCI 40 MG/ML 1 ML VIAL IV SCH (06:29)
[2024-09-29 07:50] LABS: African American GFR (CKD) >90 (>60 ml/min/1.73 sqM); Anion Gap 1 mmol/L; Blood Urea Nitrogen 35 mg/dL (9-20); Calcium 9.1 mg/dL (8.4-10.2); Carbon Dioxide 39 mmol/L (22-30); Chloride 98 mmol/L (98-107); Glucose 101 mg/dL (74-99); Non-African American GFR(CKD) >90 (>60 ml/min/1.73 sqM); Potassium 4.3 mmol/L (3.5-5.1); Sodium 138 mmol/L (137-145)
[2024-09-29 08:57] VITALS: RESP 20; TEMP 97.5
--- NOTE | 2024-09-29 09:54 | CA ---
Transthoracic Echo Report Name: Darin Metcalf Age: 63 Gender: M : 1960 Exam Date: 09/29/2024 07:38 Exam Location: [facility] Ht (in): 67 Wt (lb): 106 Ordering Physician: Temitope Sanchez Attending/Referring Phys: [id number], Marlay Plasma Processing Technician Hanh Carreon, RDCS Procedure CPT: Indications: LVF, cardiomyopathy, please do on Wednesday Cardiac Hx: Technical Quality: Fair Contrast 1: Total Dose (mL): Contrast 2: Total Dose (mL): MEASUREMENTS (Male / Female) Normal Values 2D ECHO LV Diastolic Volume MOD BP 57.9 cm??? 67 - 155 / 56 - 104 cm??? LV Systolic Volume MOD BP 41.9 cm??? 22 - 58 / 19 - 49 cm??? LV Ejection Fraction MOD BP 27.7 % >= 55 % LV Cardiac Index MOD BP 676.9 cm???/min???m??? LV Diastolic Volume MOD 4C 67.3 cm??? LV Systolic Volume MOD 4C 44.2 cm??? LV Ejection Fraction MOD 4C 34.3 % LV Cardiac Index MOD 4C 974.0 cm???/min???m??? LV Diastolic Length 4C 8.5 cm LV Systolic Length 4C 7.0 cm LV Diastolic Volume MOD 2C 45.8 cm??? LV Systolic Volume MOD 2C 37.9 cm??? LV Ejection Fraction MOD 2C 17.4 % LV Cardiac Index MOD 2C 335.7 cm???/min???m??? LV Diastolic Length 2C 7.6 cm LV Systolic Length 2C 6.6 cm FINDINGS Left Ventricle Left ventricular ejection fraction is estimated at 25-30 %. Severely reduced global left ventricular systolic function. Right Ventricle Right Atrium Left Atrium Mitral Valve No mitral regurgitation. Aortic Valve No aortic regurgitation. Tricuspid Valve No tricuspid regurgitation. Pulmonic Valve Pericardium Trace pericardial effusion. Aorta CONCLUSIONS Severely impaired LV function with EF between 25 to 30% Trace pericardial effusion Previewed by: Dr. Derrek Kendrick MD (Electronically Signed) Final Date: 29 September 2024 09:54
[2024-09-29 11:37] LABS: Glucose,Whole Blood 133 mg/dL (70-110)
[2024-09-29 12:10] VITALS: BP 119/73
[2024-09-29 13:10] VITALS: PULSE 75
--- NOTE | 2024-09-29 14:04 | P.PN ---
Subjective Progress Note Date: 09/29/24 This is a 63-year-old male admitted to the hospital with an acute anterior wall myocardial infarction, underwent emergent cardiac catheterization, but did not require any angioplasty as he only had a 30 to 40% stenosis involving the LAD. EF was 30 to 35% and most likely a variant of Takotsubo syndrome. Blood pressure 100/58, heart rate 75, pulse ox 98% on 2 L nasal cannula. No repeat blood work today. Dr. Us reviewed the echocardiogram results with the patient. Echocardiogram reveals EF of 20 to 25% with segmental wall motion abnormality. No significant regurgitation on Doppler study. 09/29 Patient is seen and examined. Repeat limited echocardiogram reveals EF of 25 to 30%. LifeVest will be ordered for patient to use prior to discharge. Blood pressure 119/73, heart rate 77, pulse ox 90% on 2 L nasal cannula. Repeat blood work reveals potassium 4.3, BUN 35 creatinine 0.77. Physical examination: Gen: This is a 63-year-old male resting in bed and appears comfortable. VS: reviewed LUNGS: Occasional rhonchi. No intercostal retractions. HEART: First and second heart sounds. No gallop. No murmur. EXTREMITIES: No pedal edema. No calf tenderness. NEUROLOGICAL: Patient is awake, alert and oriented x3. Assessment: Acute anterior wall myocardial infarction, status post cardiac catheterization advise medical therapy Possible Takotsubo variant Nonischemic cardiomyopathy Plan: Continue current cardiac medications: Aspirin 81 mg daily, atorvastatin, losartan, Toprol XL 25 mg daily, Aldactone 25 mg daily LifeVest ordered and to be obtained prior to discharge Smoking cessation. Patient will be provided the Leftronic quit line information at discharge. Nurse practitioner note has been reviewed, I agree with documented findings and plan of care. Patient was seen and examined. Objective - Vital Signs Vital signs: Vital Signs Temp 97.5 F L 09/29/24 08:56 Pulse 72 09/29/24 09:50 Resp 20 09/29/24 08:56 BP 108/60 09/29/24 08:56 Pulse Ox 98 09/29/24 09:37 FiO2 50 09/27/24 08:03 Intake & Output 09/28/24 09/29/24 09/29/24 18:59 06:59 18:59 Intake Total 360 10 Balance 360 10 Weight 48.2 kg 48.2 kg Intake: IV 10 Invasive Line 1 5 Invasive Line 2 5 Oral 360 Other: Voiding Method Urinal Urinal # Voids 2 2 - Labs CBC & Chem 7: 09/27/24 05:19 09/29/24 07:28 Labs: Abnormal Lab Results - Last 24 Hours (Table) 09/28/24 09/28/24 09/28/24 Range/Units 11:17 16:25 20:25 Carbon Dioxide (22-30) mmol/L BUN (9-20) mg/dL Glucose (74-99) mg/dL POC Glucose (mg/dL) 151 H 150 H 114 H (70-110) mg/dL 09/29/24 Range/Units 07:28 Carbon Dioxide 39 H (22-30) mmol/L BUN 35 H (9-20) mg/dL Glucose 101 H (74-99) mg/dL POC Glucose (mg/dL) (70-110) mg/dL
[2024-09-29 16:34] LABS: Glucose,Whole Blood 145 mg/dL (70-110)
--- NOTE | 2024-09-29 17:23 | P.PN ---
Subjective Progress Note Date: 09/29/24 63-year-old presented to the [facility] because of increased worsening shortness of breath and chest pain. Initial EKG showed ST elevations in lead V1 and V2. For this STEMI was activated. Patient was promptly evaluated at bedside. Bedside echocardiogram was performed which showed an EF of around 20 to 25% with anteroseptal wall hypokinesia. For this patient was taken for the cardiac catheterization. The patient had a troponin of 0.037. The patient completed his cardiac catheterization through a right radial artery access. The coronaries on angiogram were essentially consistent with nonocclusive disease. The patient was found to have mild diffuse luminal irregularities in the LAD and RCA and 50% mid PDA disease. He also had mild elevation of the left ventricular diastolic pressure. Noted he has cardiomyopathy with impaired LV function. During the process, the patient became progressively more short of breath. He was placed on a BiPAP and currently is on a BiPAP pressure of 12 over 5 cm of water with FiO2 of 50%. He is generating a tidal volume of around 450 and his current minute ventilation is at 7 L. Pulse ox is in order of 99%. This patient is known to me. Taking care of him approximately a year ago. Back then, the patient was hospitalized for an acute COPD exacerbation. 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 His most recent CAT scan of the chest that was done on 08/24/2022 showed advanced emphysematous changes along with chronic scarring and thickening of the major fissure on the right. The follow-up chest x-ray from this current admission showed similar chronic scarring in the right apex along with diffuse emphysematous changes in the upper lobes bilaterally. No airspace disease. No consolidation. He has significant hyperinflation. At this point in time, the patient is awake and alert and communicating. Admits to smoke cigarettes 1 pack of cigarettes a day. He is on oxygen also 2 L/min nasal cannula. His home medications include Spiriva and Dulera as maintenance and the patient has albuterol HFA that he uses on an as 28 basis. His white cell count of 5.5 with a hemoglobin 15.4 and a platelet count of 237. The viral screen was negative. No altered mentation. He is quite cachectic. Hemodynamically stable. His weight is 49 kg. On 09/27/2024, the patient is improved. Overnight, the patient was kept on a BiPAP with a pressure of 12 over 5 cm of water and FiO2 50%. This morning, the patient was already feeling better and the patient was switched to oxygen at 2 L/min nasal cannula. The patient denies having any significant complaints. Less bronchospastic and wheezy compared to yesterday the patient is currently on [facility], IV Solu-Medrol 60 mg every 6 hours and the patient is also on a combination of Perforomist and Pulmicort nebulized treatments twice a day. IV fluids were switched to KVO. No chest pain. No altered mentation. There was a count of 4.8 with a heme of 13.5 and a platelet count of 228. Sodium is at 134, potassium is 4.4, BUN 23 creatinine 0.6. Troponin peaked at 0.7. The viral sc reen was negative. No other complaints otherwise for now. In terms of CHF management, the patient was started on beta-blockers and the patient is currently on metoprolol. Also started on Cozaar. 09/28/2024, seen the patient for a follow-up. Patient is currently off the BiPAP.Still bronchospastic and wheezy yet overall less short of breath compared to yesterday. No chest pain.remains on bronchodilators. Remains on steroids. He is currently on episode of Medrol 4 mg every 12 hours. In terms of his cardiomyopathy, the patient is currently on a combination of metoprolol 25 mg p.o. twice a day, Aldactone 25 mg p.o. daily, and losartan 25 mg p.o. daily. He is on Lovenox for DVT prophylaxis. He is on aspirin and Plavix. His blood work showed is still pending from today. He is on 2 L of oxygen by nasal cannula. Calm and comfortable and communicating and his pulse ox is 98%. 09/29/2024, the patient is stable. No specific complaints. No chest pain. No significant shortness of breath and the patient remains on 28 L of oxygen by nasal cannula with a pulse ox of 98%. Remains on bronchodilators. Remains on IV Solu-Medrol. In terms of CHF, the patient is on Cozaar 25 mg p.o. daily, metoprolol XL 25 mg p.o. daily and Aldactone 25 mg p.o. daily. No diuretics for now. Remains on aspirin. Remains on Lipitor. BUN 35 with a creatinine of 0.77 and sodium levels at 138. Objective - Vital Signs Vital signs: Vital Signs Temp 97.5 F L 09/29/24 08:56 Pulse 79 09/29/24 12:59 Resp 20 09/29/24 12:08 BP 119/73 09/29/24 12:08 Pulse Ox 98 09/29/24 12:08 FiO2 50 09/27/24 08:03 Intake & Output 09/28/24 09/29/24 09/29/24 18:59 06:59 18:59 Intake Total 360 128 Balance 360 128 Weight 48.2 kg 48.2 kg Intake: IV 10 Invasive Line 1 5 Invasive Line 2 5 Oral 360 118 Other: Voiding Method Urinal Urinal # Voids 2 2 2 - Exam The patient appeared very thin, cachectic, Calm and comfortable on 2 L of oxygen by nasal cannulaHead exam is unremarkable. No scleral icterus or corneal arcus noted. Neck is without jugular venous distension, thyromegaly, or carotid bruits. Carotid upstrokes are brisk bilaterally. Lungs are showing diminished breath sounds along with prolongation of the exhalation phase of breathing and diffuse expiratory wheezes heard throughout the lung horne bilaterally. The patient has a barrel chest. Cardiac exam reveals the PMI to be normally sized and situated. Rhythm is regular. First and second heart sounds normal. No murmurs, rubs or gallops. Abdominal exam reveals normal bowel sounds, no masses, no organomegaly and no aortic enlargement. Extremities are nonedematous and both femoral and pedal pulses are normal. The patient has a radial stop and the cath site is dry clean and intact. Examination of the skin revealed no evidence of significant rashes, suspicious appearing nevi or other concerning lesions. Neurologically, the patient is awake and alert and the patient does not have any focal neurological deficit. Cranial nerves are essentially intact. - Labs CBC & Chem 7: 09/27/24 05:19 09/29/24 07:28 Labs: Abnormal Lab Results - Last 24 Hours (Table) 09/28/24 09/28/24 09/29/24 Range/Units 16:25 20:25 07:28 Carbon Dioxide 39 H (22-30) mmol/L BUN 35 H (9-20) mg/dL Glucose 101 H (74-99) mg/dL POC Glucose (mg/dL) 150 H 114 H (70-110) mg/dL 09/29/24 Range/Units 11:32 Carbon Dioxide (22-30) mmol/L BUN (9-20) mg/dL Glucose (74-99) mg/dL POC Glucose (mg/dL) 133 H (70-110) mg/dL Assessment and Plan Plan: Acute ST segment elevation myocardial infarction, limited troponin elevation and a cardiac catheterization showed mild diffuse luminal irregularities involving the LAD and RCA with a 50% mid PDA disease. Nevertheless, this type of anatomy did not require any intervention or stenting. The patient is currently hemodynamically stable. Cardiac rhythm is sinus. Free of any chest pain. Cardiomyopathy with an ejection fraction of 30 to 35% Acute on chronic shortness of breath secondary to COPD exacerbation. Patient is improved and the patient is currently off the BiPAP currently on 2 L of O2 nasal cannula Advanced COPD with chronic emphysematous changes, predominantly in the upper lobes along with chronic scarring in the right major fissure Previous history of pneumothorax Chronic hypoxic respiratory maintained on oxygen 2 L/min nasal cannula Chronic smoking Chronic weight loss and cachexia and a body mass index of 16 History of prostate cancer, with a previous prostatectomy Hyperlipidemia Depression Generalized deconditioning Plan Clinically improving and less bronchospastic and wheezy compared to yesterday Keep the patient on oxygen 2 L DuoNeb nebulized treatments 4 times daily and as needed Perforomist and Pulmicort nebulized treatments twice a day Discontinue IV Solu-Medrol start the patient on prednisone burst taper IV fluids to KVO Viral screen was negative Continue aspirin Lipitor/statins 40 mg p.o. daily Zoloft Prilosec 20 mg p.o. daily Cozaar 25 mg p.o. daily Metoprolol 25 mg p.o. twice daily Aldactone 25 mg p.o. daily Will continue to follow. Evaluation was done at 31 minutes Time with Patient: Greater than 30
[2024-09-29] MEDS: predniSONE 20 MG TAB PO SCH (17:45)
--- NOTE | 2024-09-29 20:54 | P.DS ---
Providers Date of admission: 09/26/24 17:31 Expected date of discharge: 09/29/24 Attending physician: Virgil Garcia Consults: 09/26/24 17:29 Consult Physician Routine Consulting Provider: Eloy Rivero Consult Reason/Comments: stemi Do you want consulting provider notified?: Yes 09/26/24 18:36 Consult Physician Routine Consulting Provider: Eddie Miles Consult Reason/Comments: SOB, bipap Do you want consulting provider notified?: Already Contacted Primary care physician: Richard Gouldm[facility] Course: Chief Complaint: Chest tightness Pleasant 63-year-old patient who follows with Dr. Mancia. Charge Hand Dr. Agosto. Chronic stable medical conditions include GERD, hyperlipidemia, osteoarthritis , anxiety depression. Smoking at least 1 pack a day. At baseline patient remains short of breath. Has a cough. Yellow sputum. For 2 days been having anterior chest wall pain. Also left precordial pain. Pain going up to his neck. Also some pleuritic component worse with deep breaths. Short of breath. Wheezing. Patient was taken to the cardiac [employer] by Dr. Rivero from cardiology. EF was found to be 30 to 35%. With nonobstructive disease more details in his notes. Patient postprocedure admitted to the ICU. Currently on BiPAP with settings of 12/5/50%. Patient quite a bit short of breath. September 27: ICU. Sitting up in bed. 2 L nasal cannula. Breathing a bit better. Had all his breakfast. Tired. Consult dietitian. Ensure added. September 28: Moved to the telemetry floor. On 2 L nasal cannula. Breathing better. Up in chair. Eating well. Limited 2D echo tomorrow. Cut back Solu- Medrol September 29: Breathing much better. Counseled about smoking. Will discharge on prednisone taper DuoNeb. Other medications discussed. Patient to follow-up with pulmonary Dr. AGOSTO and Dr. Us from cardiology. Questions answered patient has home oxygen. Discussion and discharge planning more than 35 minutes Delete that Past medical history to include: COPD, GERD, hyperlipidemia, osteoarthritis, prostate cancer, anxiety depression Social history: Smokes a pack and a pack and a half a day since age 16. No alcohol. Lives with his . Patient is to work with Ortho conditioning. Physical examination: VITAL SIGNS: Afebrile, 75, 20, 119 x 73, 98% on 2.5 L GENERAL: Sitting up in bed, generalized wasting of muscles loss of subcutaneous fat. Breathing much improved EYES: Pupils equal. Conjunctiva normal. HEENT: External appearance of nose and ears normal, oral cavity grossly normal. NECK: JVD not raised; masses not palpable. HEART: First and second heart sounds are normal; no edema. LUNGS: Respiratory rate increased, diminished breath sounds, ABDOMEN: Soft, nontender, liver spleen not palpable, no masses palpable. PSYCH: [Alert and oriented x3; mood and affect anxious MUSCULOSKELETAL:No Clubbing/cyanosis; decreased muscle mass and increased, bony prominences, OA INVESTIGATIONS, reviewed in the clinical context: September 29: Potassium 4.3 creatinine 0.77 2D echo: EF 20-25%. Mid anterior septal lateral wall severe hypokinesis. September 27: Sodium 134 potassium 4.4 creatinine 0.69 September 26, 2024: White count 5.5 hemoglobin 15.4 platelet 237 Troponin I 0.037, 0.715 Influenza type A, type B, RSV, SARS-CoV-2: Not detected EKG tracing personally reviewed by me-ST elevation in anterior leads. Depression in inferolateral leads. Chest x-ray film personally reviewed by me-severe hyperinflation and emphysematous changes Assessment and plan: -Acute anterior wall non-Q wave LA. Cardiac catheterization done by Dr. Rivero. -Probable Takotsubo variant -Nonobstructive coronary artery disease with mild diffuse luminal irregularities in LAD and RCA. 50% mid PDA disease. Aspirin. Lipitor. Follow-up Dr. Nano Us -Ischemic cardiomyopathy EF 20-25 %. Cozaar. Toprol-XL. Aldactone 25 mg a day -Acute severe COPD exacerbation in a current smoker: Improving Decrease IV Solu-Medrol 40 mg Q12, decrease DuoNeb 4 times daily, nebulized Pulmicort 1 mg every 12. Nebulized Perforomist Discharge on DuoNeb, prednisone taper, Dulera -Acute tracheobronchitis Doxycycline -Acute hypoxic respiratory failure from COPD: Better Initially on BiPAP. Now on 2 L oxygen -Chronic hypoxic respiratory failure from COPD Home oxygen 2 L -Chronic nicotine dependence, cigarettes smoker Nicotine patch -Severe protein calorie malnutrition Ensure 1 can by mouth 3 times a day. Consult dietitian -Hyperlipidemia Lipitor 40 mg daily at bedtime -Chronic insomnia Melatonin -GERD Prilosec -Anxiety depression Zoloft -Primary osteoarthritis Tylenol as needed -Full code Disposition: Home Past Medical History Past Medical History: Cancer, COPD, GERD/Reflux, Hyperlipidemia, Osteoarthritis (OA), Pneumonia, Prostate Disorder Additional Past Medical History / Comment(s): Hx Prostate cancer, bilateral hand fx in past History of Any Multi-Drug Resistant Organisms: MRSA Date of last positivie culture/infection: 02/28/18 MDRO Source:: MRSA URINE Past Surgical History: Hernia Repair, Prostate Surgery Additional Past Surgical History / Comment(s): colonoscopy, surgery for punctured lung, Past Anesthesia/Blood Transfusion Reactions: No Reported Reaction Past Psychological History: Anxiety, Depression Smoking Status: Current every day smoker Past Alcohol Use History: None Reported Additional Past Alcohol Use History / Comment(s): smokes 1-1.5 PPD since age 16. Past Drug Use History: None Reported Plan - Discharge Summary Discharge Rx Participant: No New Discharge Prescriptions: New Spironolactone [Aldactone] 25 mg PO DAILY #30 tab predniSONE 10 mg PO DAILY #30 tab Metoprolol Succinate (ER) [Toprol XL] 25 mg PO DAILY #30 tab Aspirin 81 mg PO DAILY tab Losartan [Cozaar] 25 mg PO HS #30 tab Doxycycline 100 mg PO BID #6 tab Ipratropium-Albuterol Nebulize [Duoneb 0.5 mg-3 mg/3 ml Soln] 3 ml INHALATION TID #90 each Nicotine 21Mg/24Hr Patch [Habitrol] 1 patch TRANSDERM DAILY #30 patch Continue Omeprazole [PriLOSEC] 20 mg PO DAILY Atorvastatin [Lipitor] 40 mg PO DAILY Sertraline [Zoloft] 25 mg PO DAILY Mometasone/Formoterol [Dulera 200 Mcg-5 Mcg Inhaler] 2 puff INHALATION RT-BID Tamsulosin [Flomax] 0.4 mg PO DAILY Changed Albuterol Sulfate [Ventolin HFA] 2 puff INHALATION RT-Q4H PRN #0 PRN Reason: Wheezing Discontinued Spiriva Respimat 1.25mcg Actuation Mist 2 puff INHALATION RT-DAILY Discharge Medication List Atorvastatin [Lipitor] 40 mg PO DAILY 06/04/16 [History] Omeprazole [PriLOSEC] 20 mg PO DAILY 06/04/16 [History] Mometasone/Formoterol [Dulera 200 Mcg-5 Mcg Inhaler] 2 puff INHALATION RT-BID 10/08/23 [History] Sertraline [Zoloft] 25 mg PO DAILY 10/08/23 [History] Tamsulosin [Flomax] 0.4 mg PO DAILY 09/26/24 [History] Albuterol Sulfate [Ventolin HFA] 2 puff INHALATION RT-Q4H PRN #0 09/29/24 [Rx] Aspirin 81 mg PO DAILY tab 09/29/24 [Rx] Doxycycline 100 mg PO BID #6 tab 09/29/24 [Rx] Ipratropium-Albuterol Nebulize [Duoneb 0.5 mg-3 mg/3 ml Soln] 3 ml INHALATION TID #90 each 09/29/24 [Rx] Losartan [Cozaar] 25 mg PO HS #30 tab 09/29/24 [Rx] Metoprolol Succinate (ER) [Toprol XL] 25 mg PO DAILY #30 tab 09/29/24 [Rx] Nicotine 21Mg/24Hr Patch [Habitrol] 1 patch TRANSDERM DAILY #30 patch 09/29/24 [Rx] Spironolactone [Aldactone] 25 mg PO DAILY #30 tab 09/29/24 [Rx] predniSONE 10 mg PO DAILY #30 tab 09/29/24 [Rx] Follow up Appointment(s)/Referral(s): Mike Agosto DO [Doctor of Osteopathic Medicine] - 10/17/24 8:30 am (WEDNESDAY) Richard Mancia MD [Primary Care Provider] - 1-2 days (RN was unable to make an appointment. Please call WEDNESDAY to make a post hospital follow up appointment.) Jose Alfredo Us MD [STAFF PHYSICIAN] - 10/09/24 4:00 pm (WEDNESDAY) [facility] Visiting Nurse, [NON-STAFF] - Patient Instructions/Handouts: Heart Failure (DC), COPD (Chronic Obstructive Pulmonary Disease) (DC), After Radial Heart Catheterization (GEN) Activity/Diet/Wound Care/Special Instructions: CARDIAC CATH Support your puncture site by applying firm, steady pressure whenever you cough, laugh, sneeze or bear down to have a bowel movement (2-day restriction). Watch for any excessive bruising, active bleeding, a firm knot forming under your skin, extreme tenderness and signs of infection (redness, swelling, fever). Shower daily, do not soak puncture in a tub bath, jacuzzi, pool, gorman etc. for 1 week. This is to prevent risk of infection. Drink plenty of fluids the day of and day after your procedure to flush contrast dye out of your kidneys. Take all medications as directed. Never stop any new medication without your physicians OK. No driving for 2 days after procedure. 10- pound weight lifting restriction for 1 week. Low sodium/low fat diet. Activity limited until follow up appointment with your news assistant. In case of any problems, please call [facility] @ [phone] CHF Weigh yourself every morning after you urinate. If you gain 2-3 pounds overnight or 5 pounds in one week, call your primary physician for guidance on your medications. Keep a log of your weights. Avoid salt, or foods with hidden salt. Extra salt makes your heart work harder and traps the fluid in your body for longer. Take all of your medications as directed, especially your water pills. NEVER skip a dose. Elevate your legs when you are not up moving around to help with circulation and prevent swelling. Call your physician if you notice any extra swelling in your legs, ankles, feet or abdomen, if you have a new dry cough, if your shortness of breath worsens with activity or at rest, or if you feel more fatigued
== END 2024-09-29 19:45 | disposition home or self-care (01) | DRG 280 ==
LOC: EC 17:02 → 2SICU 17:31 → EC 18:09 → 3SCARD 09-27 13:48
PROVIDERS: ADMIT Hospitalist; ATTEND Hospitalist
PROC: 4A023N7 Measurement of Cardiac Sampling and Pressure, Left Heart, Percutaneous Approach (ICD-10-PCS; 2024-09-26)
PROC: B2111ZZ Fluoroscopy of Multiple Coronary Arteries using Low Osmolar Contrast (ICD-10-PCS; 2024-09-26)
PROC: B2151ZZ Fluoroscopy of Left Heart using Low Osmolar Contrast (ICD-10-PCS; 2024-09-26)
PROC: 5A09457 Assistance with Respiratory Ventilation, 24-96 Consecutive Hours, Continuous Positive Airway Pressure (ICD-10-PCS; principal; 2024-09-26 17:30)
DX: I21.09 ST elevation (STEMI) myocardial infarction involving other coronary artery of anterior wall (principal); E43 Unspecified severe protein-calorie malnutrition; J96.21 Acute and chronic respiratory failure with hypoxia; R64 Cachexia; J44.0 Chronic obstructive pulmonary disease with (acute) lower respiratory infection; I50.9 Heart failure, unspecified; F32.A Depression, unspecified; J44.1 Chronic obstructive pulmonary disease with (acute) exacerbation; I42.8 Other cardiomyopathies; Z68.1 Body mass index [BMI] 19.9 or less, adult; Z11.52 Encounter for screening for COVID-19; F51.04 Psychophysiologic insomnia; E78.5 Hyperlipidemia, unspecified; F17.210 Nicotine dependence, cigarettes, uncomplicated; F41.9 Anxiety disorder, unspecified; I25.10 Atherosclerotic heart disease of native coronary artery without angina pectoris; I25.5 Ischemic cardiomyopathy; J20.9 Acute bronchitis, unspecified; K21.9 Gastro-esophageal reflux disease without esophagitis; M19.91 Primary osteoarthritis, unspecified site; Z79.02 Long term (current) use of antithrombotics/antiplatelets; Z79.51 Long term (current) use of inhaled steroids; Z79.82 Long term (current) use of aspirin; Z79.899 Other long term (current) drug therapy; Z85.46 Personal history of malignant neoplasm of prostate; Z99.81 Dependence on supplemental oxygen; Z87.01 Personal history of pneumonia (recurrent); Z87.19 Personal history of other diseases of the digestive system; Z71.6 Tobacco abuse counseling
CPT/HCPCS: 36415; 71045; 80048; 80053; 83605; 83735; 84484; 85025; 85027; 85610; 85730; 87636; 93005; 93306; 93308; 94640; 94660; 94760; 96374; 99291

== ENCOUNTER 2024-12-18 20:01 | Inpatient (IN) | payer MEDICARE, OTHER ==
--- NOTE | 2024-12-18 20:19 | ED ---
SOB HPI - General Chief Complaint: Shortness of Breath Stated Complaint: OLIVER Time Seen by Provider: 12/18/24 20:04 Source: patient, EMS, RN notes reviewed, old records reviewed Mode of arrival: EMS Limitations: no limitations - History of Present Illness Initial Comments: This is a 64 male to ER for COPD. Shortness of breath with chest pain. Patient is on home O2 doing breathing treatments at home but today with unable to complete his breathing treatment secondary to severe cough and shortness of breath EMS brings patient ER in respiratory distress tripod position patient is a poor historian secondary to clinical condition and state. Borderline BiPAP MD Complaint: shortness of breath, cough, chest pain, "asthma attack" -: days(s) Severity: severe Severity scale (1-10): 10 Consistency: constant Improves With: nothing Worsens With: exertion Known History Of: COPD Context: recent URI, anxiety, recent illness Associated Symptoms: chest pain, cough, sputum production Treatments Prior to Arrival: oxygen, bronchodilator - Related Data Home Medications Medication Instructions Recorded Confirmed Atorvastatin [Lipitor] 40 mg PO HS 06/04/16 12/19/24 Omeprazole [PriLOSEC] 20 mg PO DAILY 06/04/16 12/19/24 Sertraline [Zoloft] 25 mg PO DAILY 10/08/23 12/19/24 Tamsulosin [Flomax] 0.4 mg PO DAILY 09/26/24 12/19/24 Empagliflozin [Jardiance] 10 mg PO DAILY 12/19/24 12/19/24 Ipratropium-Albuterol Nebulize 3 ml INHALATION RT-Q6H PRN 12/19/24 12/19/24 [Duoneb 0.5 mg-3 mg/3 ml Soln] Sacubitril/Valsartan [Entresto 24 1 tab PO BID 12/19/24 12/19/24 mg-26 mg Tablet] Previous Rx's Medication Instructions Recorded Albuterol Sulfate [Ventolin HFA] 2 puff INHALATION RT-Q4H PRN #0 09/29/24 Aspirin 81 mg PO DAILY tab 09/29/24 Losartan [Cozaar] 25 mg PO HS #30 tab 09/29/24 Metoprolol Succinate (ER) [Toprol 25 mg PO DAILY #30 tab 09/29/24 XL] Spironolactone [Aldactone] 25 mg PO DAILY #30 tab 09/29/24 Amoxic-Pot Clav 875-125Mg 1 each PO Q12HR #10 tab 12/23/24 [Augmentin 875-125] Fluticasone Propion/Salmeterol 1 puff INHALATION BID #1 each 12/23/24 [Advair Hfa 230-21 Mcg Inhaler] Ipratropium-Albuterol Nebulize 3 ml INHALATION RT-QID #120 each 12/23/24 [Duoneb 0.5 mg-3 mg/3 ml Soln] Nicotine 21Mg/24Hr Patch [Habitrol] 1 patch TRANSDERM DAILY #30 patch 12/23/24 Allergies Allergy/AdvReac Type Severity Reaction Status Date / Time No Known Allergies Allergy Verified 12/19/24 09:31 Review of Systems ROS Statement: Those systems with pertinent positive or pertinent negative responses have been documented in the HPI. ROS Other: All systems not noted in ROS Statement are negative. Past Medical History Past Medical History: Cancer, COPD, GERD/Reflux, Hyperlipidemia, Osteoarthritis (OA), Pneumonia, Prostate Disorder Additional Past Medical History / Comment(s): Hx Prostate cancer, bilateral hand fx in past History of Any Multi-Drug Resistant Organisms: MRSA Date of last positivie culture/infection: 02/28/18 MDRO Source:: MRSA URINE Past Surgical History: Hernia Repair, Prostate Surgery Additional Past Surgical History / Comment(s): colonoscopy, surgery for punctured lung, Past Anesthesia/Blood Transfusion Reactions: No Reported Reaction Past Psychological History: Anxiety, Depression Smoking Status: Current every day smoker Past Alcohol Use History: None Reported Past Drug Use History: None Reported - Past Family History Father Family Medical History: Cancer Additional Family Medical History / Comment(s): ; prostate CA Mother Family Medical History: Cancer Additional Family Medical History / Comment(s): , lung CA Brother(s) Family Medical History: Cancer Additional Family Medical History / Comment(s): Prostate cancer, . General Exam Limitations: no limitations General appearance: alert, anxious, in distress, cachectic Head exam: Present: atraumatic, normocephalic, normal inspection Eye exam: Present: normal appearance, PERRL, EOMI. Absent: scleral icterus, conjunctival injection, periorbital swelling ENT exam: Present: normal exam, mucous membranes moist Neck exam: Present: normal inspection. Absent: tenderness, meningismus, lymphadenopathy Respiratory exam: Present: respiratory distress, wheezes, accessory muscle use, decreased breath sounds, prolonged expiratory. Absent: rales, rhonchi, stridor Cardiovascular Exam: Present: normal rhythm, tachycardia, normal heart sounds. Absent: systolic murmur, diastolic murmur, rubs, gallop, clicks GI/Abdominal exam: Present: soft, normal bowel sounds. Absent: distended, tenderness, guarding, rebound, rigid Extremities exam: Present: normal inspection, full ROM, normal capillary refill. Absent: tenderness, pedal edema, joint swelling, calf tenderness Back exam: Present: normal inspection Neurological exam: Present: alert, oriented X3, CN II-XII intact Psychiatric exam: Present: normal affect, normal mood Skin exam: Present: warm, dry, intact, normal color. Absent: rash Course Vital Signs 12/18/24 12/18/24 12/18/24 20:02 20:21 20:35 Temperature 97.9 F Pulse Rate 122 H 107 H 112 H Pulse Rate [ Pulse Oximetery ] Respiratory 28 H 24 Rate Blood Pressure 122/62 Blood Pressure [Right Arm] O2 Sat by Pulse 87 L 93 L Oximetry 12/18/24 12/18/24 12/18/24 20:56 21:18 22:27 Temperature Pulse Rate 106 H 102 H 100 Pulse Rate [ Pulse Oximetery ] Respiratory 20 18 Rate Blood Pressure 102/59 109/67 Blood Pressure [Right Arm] O2 Sat by Pulse 92 L 90 L Oximetry 12/18/24 12/18/24 12/19/24 23:36 23:46 01:08 Temperature Pulse Rate 90 98 94 Pulse Rate [ Pulse Oximetery ] Respiratory 18 Rate Blood Pressure 105/68 Blood Pressure [Right Arm] O2 Sat by Pulse 93 L Oximetry 12/19/24 12/19/24 12/19/24 02:00 03:53 05:46 Temperature 97.7 F Pulse Rate 75 67 Pulse Rate [ 93 Pulse Oximetery ] Respiratory 17 18 16 Rate Blood Pressure 101/51 101/57 Blood Pressure 125/60 [Right Arm] O2 Sat by Pulse 95 96 94 L Oximetry 12/19/24 06:51 Temperature 97.8 F Pulse Rate 72 Pulse Rate [ Pulse Oximetery ] Respiratory 16 Rate Blood Pressure 112/61 Blood Pressure [Right Arm] O2 Sat by Pulse 95 Oximetry - Reevaluation(s) Reevaluation #1: 12/18/24 22:30 Medical records reviewed Reevaluation #2: 12/18/24 22:30 Patient symptoms relatively unchanged here in the ER but pain is improved Reevaluation #3: 12/18/24 22:30 Patient informed of results and questions answered Reevaluation #4: Was pt. sent in by a medical professional or institution (, [facility], [facility], urgent care, hospital, or prison...) When possible be specific @ -no Did you speak to anyone other than the patient for history (EMS, parent, family, police, friend...)? What history was obtained from this source @ -no Did you review nursing and triage notes (agree or disagree)? Why? @ -agree Are old charts reviewed (outside hosp., previous admission, EMS record, old EKG, old radiological studies, urgent care reports/EKG's, prison records)? Report findings @ -yes Differential Diagnosis (chest pain, altered mental status, abdominal pain women, abdominal pain men, vaginal bleeding, weakness, fever, dyspnea, syncope, headache, dizziness, GI bleed, back pain, seizure, CVA, palpatations, mental health, musculoskeletal)? @ -prior EKG interpreted by me (3pts min.). @ -yes X-rays interpreted by me (1pt min.). @ -yes negative for acute disease CT interpreted by me (1pt min.). @ -no U/S interpreted by me (1pt. min.). @ -no What testing was considered but not performed or refused? (CT, X-rays, U/S, labs)? Why? @ -none What meds were considered but not given or refused? Why? @ -none Did you discuss the management of the patient with other professionals (professionals i.e. , [facility], [facility], lab, RT, psych nurse, criminal justice social worker, associate programmer, teacher, communications officer, counter caser)? Give summary @ -no Was smoking cessation discussed for >3mins.? @ -no Was critical care preformed (if so, how long)? @ -yes31 Were there social determinants of health that impacted care today? How? (Homelessness, low income, unemployed, alcoholism, drug addiction, transportation, low edu. Level, literacy, decrease access to med. care, custodial, rehab)? @ -none Was there de-escalation of care discussed even if they declined (Discuss DNR or withdrawal of care, Hospice)? DNR status @ -no What co-morbidities impacted this encounter? (DM, HTN, Smoking, COPD, CAD, Cancer, CVA, ARF, Chemo, Hep., AIDS, mental health diagnosis, sleep apnea, morbid obesity)? @ -none Was patient admitted / discharged? Hospital course, mention meds given and route, prescriptions, significant lab abnormalities, going to OR and other pertinent info. @ - 64 male to ER for evaluation of severe shortness of breath hypoxia Long history of outstanding COPD with continuing to smoke coming in and severe COPD exacerbation hypoxia recurrent and repeat breathing treatments and despite those he is still very short of breath and will admit for supplemental O2 and monitoring of respiratory failure Admitted Undiagnosed new problem with uncertain prognosis? @ -no Drug Therapy requiring intensive monitoring for toxicity (Heparin, Nitro, Insulin, Cardizem)? @ -no Were any procedures done? @ -no Diagnosis/symptom? @ -Hypoxic respiratory failure with COPD Acute, or Chronic, or Acute on Chronic? @ -Acute Uncomplicated (without systemic symptoms) or Complicated (systemic symptoms)? @ -Complicated Side effects of treatment? @ -no Exacerbation, Progression, or Severe Exacerbation? @ -exacerbation Poses a threat to life or bodily function? How? (Chest pain, [place], [place], pneumonia, PE, COPD, DKA, ARF, appy, cholecystitis, CVA, Diverticulitis, Homicidal, Suicidal, threat to staff... and all critical care pts) @ -yes respiratory failure Reevaluation #5: Differential Dyspnea: Coronary syndrome, arrhythmia, tamponade, asthma, COPD, pulmonary embolism, pneumonia, pneumothorax, pulmonary effusion, anaphylaxis, diabetic ketoacidosis, flailed chest, pulmonary contusion, diaphragmatic rupture, anemia, ambrosio romuscular, this is not meant to be an all-inclusive list. - Consultations Consultation #1: Spoke with [facility] who agrees to admit this patient Medical Decision Making - Medical Decision Making 64 male to ER for evaluation of severe shortness of breath hypoxia Long history of outstanding COPD with continuing to smoke coming in and severe COPD exacerbation hypoxia recurrent and repeat breathing treatments and despite those he is still very short of breath and will admit for supplemental O2 and monitoring of respiratory failure - Lab Data Result diagrams: 12/19/24 06:53 12/19/24 06:53 Lab Results 12/18/24 12/18/24 12/18/24 Range/Units 20:07 20:07 20:07 WBC 18.22 H (4.50-10.00) 10*3/uL RBC 4.97 (4.40-5.60) 10*6/uL Hgb 15.6 (13.0-17.0) g/dL Hct 48.6 (39.6-50.0) % MCV 97.8 H (80.0-97.0) fL MCH 31.4 (27.0-32.0) pg MCHC 32.1 (32.0-37.0) g/dL Plt Count 297 (140-440) 10*3/uL MPV 9.7 (9.5-12.2) fL Immature Gran % (Auto) 0.5 % Neutrophils % 87.0 % Lymphocytes % 3.7 % Monocytes % 7.9 % Eosinophils % 0.5 % Basophils % 0.4 % Immature Gran # 0.09 H (0.00-0.04) 10*3/uL Neutrophils # 15.84 H (1.80-7.70) 10*3/uL Lymphocytes # 0.68 L (0.90-5.00) 10*3/uL Monocytes # 1.44 H (0.20-1.00) 10*3/uL Eosinophils # 0.10 (0.04-0.35) 10*3/uL Basophils # 0.07 (0.00-0.10) 10*3/uL PT 11.8 (10.0-12.5) sec INR 1.1 (<1.2) APTT 25.4 (22.0-30.0) sec Sodium 139 (137-145) mmol/L Potassium 4.4 (3.5-5.1) mmol/L Chloride 97 L (98-107) mmol/L Carbon Dioxide 32 H (22-30) mmol/L Anion Gap 10 mmol/L BUN 29 H (9-20) mg/dL Creatinine 0.68 (0.66-1.25) mg/dL Est GFR (CKD-EPI)AfAm >90 (>60 ml/min/1.73 sqM) Est GFR (CKD-EPI)NonAf >90 (>60 ml/min/1.73 sqM) Glucose 88 (74-99) mg/dL Calcium 9.8 (8.4-10.2) mg/dL Magnesium 1.6 (1.6-2.3) mg/dL Total Bilirubin 1.1 (0.2-1.3) mg/dL AST 23 (17-59) U/L ALT 18 (4-49) U/L Alkaline Phosphatase 80 (38-126) U/L Troponin I (0.000-0.034) ng/mL NT-Pro-B Natriuret Pep 168 pg/mL Total Protein 7.2 (6.3-8.2) g/dL Albumin 4.2 (3.5-5.0) g/dL 12/18/24 Range/Units 20:07 WBC (4.50-10.00) 10*3/uL RBC (4.40-5.60) 10*6/uL Hgb (13.0-17.0) g/dL Hct (39.6-50.0) % MCV (80.0-97.0) fL MCH (27.0-32.0) pg MCHC (32.0-37.0) g/dL Plt Count (140-440) 10*3/uL MPV (9.5-12.2) fL Immature Gran % (Auto) % Neutrophils % % Lymphocytes % % Monocytes % % Eosinophils % % Basophils % % Immature Gran # (0.00-0.04) 10*3/uL Neutrophils # (1.80-7.70) 10*3/uL Lymphocytes # (0.90-5.00) 10*3/uL Monocytes # (0.20-1.00) 10*3/uL Eosinophils # (0.04-0.35) 10*3/uL Basophils # (0.00-0.10) 10*3/uL PT (10.0-12.5) sec INR (<1.2) APTT (22.0-30.0) sec Sodium (137-145) mmol/L Potassium (3.5-5.1) mmol/L Chloride (98-107) mmol/L Carbon Dioxide (22-30) mmol/L Anion Gap mmol/L BUN (9-20) mg/dL Creatinine (0.66-1.25) mg/dL Est GFR (CKD-EPI)AfAm (>60 ml/min/1.73 sqM) Est GFR (CKD-EPI)NonAf (>60 ml/min/1.73 sqM) Glucose (74-99) mg/dL Calcium (8.4-10.2) mg/dL Magnesium (1.6-2.3) mg/dL Total Bilirubin (0.2-1.3) mg/dL AST (17-59) U/L ALT (4-49) U/L Alkaline Phosphatase (38-126) U/L Troponin I <0.012 (0.000-0.034) ng/mL NT-Pro-B Natriuret Pep pg/mL Total Protein (6.3-8.2) g/dL Albumin (3.5-5.0) g/dL - EKG Data -: EKG Interpreted by Me (EKG is sinus tachycardia 105 [place] 131 QRS 103 QTc 371) - Radiology Data Radiology results: report reviewed (Chest x-ray is negative for acute disease), image reviewed Critical Care Time Critical Care Time: Yes Total Critical Care Time: 31 Disposition Clinical Impression: COPD exacerbation, Asthma with acute exacerbation, Acute respiratory failure, Hypoxia Disposition: ADMITTED IP TO THIS HOSP Is patient prescribed a controlled substance at d/c from ED?: No Time of Disposition: 22:30
[2024-12-18] MEDS: IPRATROPIUM-ALBUTEROL 3 ML NEB INHALATION STA ×2 (20:34→23:35)
[2024-12-18] MEDS: methylPREDNISolone SOD SUCCI 125 MG/2 ML VIAL IV STA (20:34)
[2024-12-18] MEDS: SODIUM CHLORIDE 0.9% 1,000 ML IV ONE (20:35)
[2024-12-18] MEDS: MORPHINE SULFATE 4 MG/ML SYRINGE IVP STA (20:37)
--- NOTE | 2024-12-18 20:51 | XR ---
EXAMINATION TYPE: XR chest 1V portable DATE OF EXAM: 12/18/2024 COMPARISON: Chest x-ray September 26, 2024 CLINICAL INDICATION: Male, 64 years old with history of sob; TECHNIQUE: 2 frontal views of the chest are obtained. FINDINGS: Background chronic emphysematous change with moderate scattered pulmonary fibrosis is rede monstrated. There is no suspicious new focal air space opacity, pleural effusion, or pneumothorax see n. The cardiac silhouette size is stable and within normal limits. The osseous structures are rigoberto neralized. IMPRESSION: Chronic changes without acute pulmonary process. [facility], , 12/18/2024 8:49 PM
[2024-12-18 20:54] LABS: Basophils # (A) 0.07 10*3/uL (0.00-0.10); Basophils % (A) 0.4 %; Eosinophils % (A) 0.5 %; HCT 48.6 % (39.6-50.0); HGB 15.6 g/dL (13.0-17.0); Lymphocytes # (A) 0.68 10*3/uL (0.90-5.00); Lymphocytes % (A) 3.7 %; MCH 31.4 pg (27.0-32.0); MCHC 32.1 g/dL (32.0-37.0); MCV 97.8 fL (80.0-97.0); Mean Platelet Volume 9.7 fL (9.5-12.2); Monocytes # (A) 1.44 10*3/uL (0.20-1.00); Monocytes % (A) 7.9 %; Neutrophils # (A) 15.84 10*3/uL (1.80-7.70); Platelet Count 297 10*3/uL (140-440); RBC 4.97 10*6/uL (4.40-5.60); RDW 12.5 % (11.5-14.5); WBC 18.22 10*3/uL (4.50-10.00)
[2024-12-18 20:57] LABS: ALT 18 U/L (4-49); African American GFR (CKD) >90 (>60 ml/min/1.73 sqM); Albumin 4.2 g/dL (3.5-5.0); Anion Gap 10 mmol/L; Blood Urea Nitrogen 29 mg/dL (9-20); Calcium 9.8 mg/dL (8.4-10.2); Carbon Dioxide 32 mmol/L (22-30); Chloride 97 mmol/L (98-107); Glucose 88 mg/dL (74-99); Non-African American GFR(CKD) >90 (>60 ml/min/1.73 sqM); Sodium 139 mmol/L (137-145); Total Bilirubin 1.1 mg/dL (0.2-1.3); Total Protein 7.2 g/dL (6.3-8.2)
[2024-12-18 20:59] LABS: INR 1.1 (<1.2); Partial Thromboplastin Time 25.4 sec (22.0-30.0); Prothrombin Time 11.8 sec (10.0-12.5)
[2024-12-18 21:05] LABS: NT-Pro-B-Type Natriuretic Pept 168 pg/mL
[2024-12-18 21:06] LABS: Potassium 4.4 mmol/L (3.5-5.1)
[2024-12-18 21:07] LABS: AST 23 U/L (17-59); Alkaline Phosphatase 80 U/L (38-126); Magnesium 1.6 mg/dL (1.6-2.3)
[2024-12-18] MEDS ORDERED: ONDANSETRON 4 MG/2 ML VIAL IVP PRN (22:27)
[2024-12-18] MEDS ORDERED: NALOXONE 0.4 MG/ML 1 ML VIAL IVP PRN (22:27)
[2024-12-18] MEDS ORDERED: NALOXONE 0.4 MG/ML 1 ML VIAL IV PRN (22:27)
[2024-12-18] MEDS ORDERED: MORPHINE SULFATE 4 MG/ML SYRINGE IV PRN (22:27)
[2024-12-18] MEDS: SODIUM CHLORIDE 0.9% 1,000 ML IV SCH (22:38)
[2024-12-19] MEDS: AZITHROMYCIN 500 MG TAB PO SCH (00:04)
[2024-12-19] MEDS: methylPREDNISolone SOD SUCCI 125 MG/2 ML VIAL IV SCH (01:32)
--- NOTE | 2024-12-19 02:25 | P.CNPUL ---
History of Present Illness Consult date: 12/19/24 Requesting physician: Hesham Alexander Reason for consult: COPD Chief complaint: Shortness of breath, wheezing History of present illness: Patient is a 64-year-old male with past medical history significant for hypertension, hyperlipidemia, nonocclusive coronary artery disease, nonocclusive cardiomyopathy with a ejection fraction of 20 to 25% and a LifeVest, prostate cancer with previous prostatectomy, and oxygen dependent COPD. He does follow in the pulmonary office with Dr. Agosto. He has an FEV1 23% of predicted. He is oxygen dependent on 2.5 L/min nasal cannula 08/02. Normally maintained on Dulera and Spiriva inhalers; however, he has been out of this medication for 2 months. This is due to insurance issues. He has been using his DuoNebs. Brought into the emergency department late last night by EMS. He was in some respiratory distress, tripod breathing. He was given multiple DuoNeb treatments in the ED and loaded with IV Solu-Medrol. Chest x-ray did not show any acute cardiopulmonary process. Hyperinflation and moderate scattered fibrotic changes. Labs including a count of 18.2, hemoglobin 15.6, platelets 297. CMP: Sodium 139, potassium 4.4, chloride 97, serum bicarb 32, BUN 29, creatinine 0.68, glucose 88. LFTs unremarkable. Troponin less than 0.012. NT proBNP 168. Patient currently being evaluated in the emergency department. Endorses increased work of breathing, persistent cough, wheezing, chest tightness, bilateral rib pain with coughing approximately. Cough is productive with yellow to green sputum. Symptoms started 1 to 2 weeks ago. Denies fever/chills. States he was recently on a trip up [place] with family on . He denies sick contacts. He is chronically oxygen dependent on 2.5 L/min nasal cannula, however, turned this up to 3 L/min because of his increased work of breathing. States that he recently had some work done on their bathroom and the smell from the glue may have triggered his COPD. He denies any chest pain, heart palpitations, lightheadedness, syncopal events, lower extremity edema. He does have a LifeVest at home, however, not wearing it. Current vital signs: Heart rate 94 bpm, blood pressure 105/68 mmHg, nontachypneic, SpO2 reading 93% on 3 L/min nasal cannula. Review of Systems Constitutional: Reports fatigue, Denies chills, Denies fever, Denies night sweats, Denies poor appetite, Denies weight gain, Denies weight loss Ears, nose, mouth and throat: Denies headache, Denies nasal congestion, Denies nasal discharge, Denies post-nasal drip, Denies sinus pain, Denies sinus pressure, Denies sore throat, Denies voice changes Cardiovascular: Reports dyspnea on exertion, Denies chest pain, Denies leg edema, Denies lightheadedness, Denies orthopnea, Denies palpitations, Denies paroxysmal nocturnal dyspnea, Denies syncope Respiratory: Reports as per HPI Gastrointestinal: Denies abdominal pain, Denies constipation, Denies diarrhea, Denies nausea, Denies vomiting Genitourinary: Reports incontinence (Stress), Denies dysuria, Denies hematuria, Denies urinary frequency Musculoskeletal: Denies limitation of motion Integumentary: Denies rash Neurological: Denies seizures, Denies syncope Psychiatric: Reports anxiety, Reports depression, Denies suicidal ideation Past Medical History Past Medical History: Cancer, COPD, GERD/Reflux, Hyperlipidemia, Osteoarthritis (OA), Pneumonia, Prostate Disorder Additional Past Medical History / Comment(s): Hx Prostate cancer, bilateral hand fx in past History of Any Multi-Drug Resistant Organisms: MRSA Date of last positivie culture/infection: 02/28/18 MDRO Source:: MRSA URINE Past Surgical History: Hernia Repair, Prostate Surgery Additional Past Surgical History / Comment(s): colonoscopy, surgery for pu nctured lung, Past Anesthesia/Blood Transfusion Reactions: No Reported Reaction Past Psychological History: Anxiety, Depression Smoking Status: Current every day smoker Past Alcohol Use History: None Reported Past Drug Use History: None Reported - Past Family History Father Family Medical History: Cancer Additional Family Medical History / Comment(s): ; prostate CA Mother Family Medical History: Cancer Additional Family Medical History / Comment(s): , lung CA Brother(s) Family Medical History: Cancer Additional Family Medical History / Comment(s): Prostate cancer, . Medications and Allergies Home Medications Medication Instructions Recorded Confirmed Type Atorvastatin [Lipitor] 40 mg PO HS 06/04/16 12/19/24 History Omeprazole [PriLOSEC] 20 mg PO DAILY 06/04/16 12/19/24 History Sertraline [Zoloft] 25 mg PO DAILY 10/08/23 12/19/24 History Tamsulosin [Flomax] 0.4 mg PO DAILY 09/26/24 12/19/24 History Albuterol Sulfate [Ventolin HFA] 2 puff INHALATION RT-Q4H PRN #0 09/29/24 12/19/24 Rx Aspirin 81 mg PO DAILY tab 09/29/24 12/19/24 Rx Losartan [Cozaar] 25 mg PO HS #30 tab 09/29/24 12/19/24 Rx Metoprolol Succinate (ER) [Toprol 25 mg PO DAILY #30 tab 09/29/24 12/19/24 Rx XL] Spironolactone [Aldactone] 25 mg PO DAILY #30 tab 09/29/24 12/19/24 Rx Empagliflozin [Jardiance] 10 mg PO DAILY 12/19/24 12/19/24 History Ipratropium-Albuterol Nebulize 3 ml INHALATION RT-Q6H PRN 12/19/24 12/19/24 History [Duoneb 0.5 mg-3 mg/3 ml Soln] Sacubitril/Valsartan [Entresto 24 1 tab PO BID 12/19/24 12/19/24 History mg-26 mg Tablet] Allergies Allergy/AdvReac Type Severity Reaction Status Date / Time No Known Allergies Allergy Verified 12/19/24 09:31 Physical Exam Vitals: Vital Signs Temp Pulse Resp BP Pulse Ox 12/19/24 01:08 94 18 105/68 93 L 12/18/24 23:46 98 12/18/24 23:36 90 12/18/24 22:27 100 18 109/67 90 L 12/18/24 21:18 102 H 20 102/59 92 L 12/18/24 20:56 106 H 12/18/24 20:35 112 H 12/18/24 20:21 107 H 24 93 L 12/18/24 20:02 97.9 F 122 H 28 H 122/62 87 L Intake and Output 12/18/24 12/18/24 12/19/24 14:59 22:59 06:59 Other: Weight 46.72 kg GENERAL EXAM: Alert, 64-year-old male, cachectic, on 3 L/min nasal cannula, fairly comfortable in no apparent distress. HEAD: Normocephalic and atraumatic EYES: Normal reaction of pupils, equal size. NOSE: Clear with pink turbinates. THROAT: No erythema or exudates. NECK: No masses, no JVD. CHEST: No chest wall deformity. LUNGS: Equal air entry with diffuse bilateral expiratory wheezing and rhonchi. No conversational dyspnea or accessory muscle us while at rest while at rest. Cardiovascular: Normal S1/S2, regular rhythm, no extra heart sounds. ABDOMEN: No hepatosplenomegaly, active bowel sounds, no guarding or rigidity. SPINE: No scoliosis or deformity SKIN: No rashes CENTRAL NERVOUS SYSTEM: No focal deficits, tone is normal in all 4 extremities. EXTREMITIES: There is no peripheral edema or cyanosis. Digital clubbing noted. Peripheral pulses are intact. Results - Laboratory Findings CBC and BMP: 12/19/24 06:53 12/19/24 06:53 PT/INR, D-dimer PT 11.8 sec (10.0-12.5) 12/18/24 20:07 INR 1.1 (<1.2) 12/18/24 20:07 Abnormal lab findings: Abnormal Labs 12/18/24 12/18/24 20:07 20:07 WBC 18.22 H MCV 97.8 H Immature Gran # 0.09 H Neutrophils # 15.84 H Lymphocytes # 0.68 L Monocytes # 1.44 H Chloride 97 L Carbon Dioxide 32 H BUN 29 H - Diagnostic Findings Chest x-ray: image reviewed Assessment and Plan Assessment: Acute COPD exacerbation Acute on chronic hypoxemic respiratory failure, currently on 3 L/min nasal cannula, chest x-ray showing chronic changes with marked hyperinflation and scattered fibrotic changes. No acute infiltrates, pleural effusions, pneumothoraces. Acute leukocytosis History of nonocclusive coronary artery disease History of nonischemic cardiomyopathy, with an ejection fraction of 25 to 30%. History of hyperlipidemia Hypertension Very severe chronic obstructive pulmonary disease, with an FEV1 26% of predicted Chronic hypoxemic respiratory failure, secondary to above Chronic tobacco dependence Medication noncompliance, patient has been out of his Dulera inhaler for approximately 2 months due to financial/insurance related issues Severe protein calorie malnutrition with a BMI of 16.6 kg/m History of pneumothorax History of prostate cancer with previous prostatectomy History of anxiety/depression Plan: Patient's medications, labs, chest x-ray reviewed Continue supplemental oxygen to maintain oxygen saturation of 90% or greater Add Symbicort and Spiriva inhalers Continue albuterol nebs Continue IV Solu-Medrol Send sputum culture Add azithromycin empirically Smoking cessation counseling performed Patient educated on the importance of wearing his LifeVest We will continue to follow-up I have personally seen and examined the patient, performed the documentation and the assessment and plan as written. Number of minutes spent on the visit:20 Home status post the joint evaluation that was done along with the nurse practitioner. This evaluation was done more than 30 minutes. The patient is known to have COPD the patient is coming in for an acute COPD exacerbation. Patient has other comorbidities including nonocclusive coronary artery disease, systolic heart failure with an ejection fraction of 25 to 30% along with hypertension hyperlipidemia. He has chronic hypoxic respiratory failure. Currently is not using any form of maintenance respiratory medications and relying mainly on albuterol chest [id number]. Is oxygen dependent and the patient is still smoking. I agree on the management plan. Will continue to follow. Time with Patient: Greater than 30
[2024-12-19 07:13] LABS: Basophils # (A) 0.02 10*3/uL (0.00-0.10); Basophils % (A) 0.1 %; HCT 44.6 % (39.6-50.0); Lymphocytes # (A) 0.31 10*3/uL (0.90-5.00); Lymphocytes % (A) 1.9 %; MCH 31.3 pg (27.0-32.0); MCHC 31.4 g/dL (32.0-37.0); MCV 99.6 fL (80.0-97.0); Mean Platelet Volume 9.4 fL (9.5-12.2); Monocytes # (A) 0.54 10*3/uL (0.20-1.00); Monocytes % (A) 3.3 %; Neutrophils # (A) 15.36 10*3/uL (1.80-7.70); Neutrophils % (A) 94.4 %; Platelet Count 275 10*3/uL (140-440); RBC 4.48 10*6/uL (4.40-5.60); RDW 12.5 % (11.5-14.5); WBC 16.28 10*3/uL (4.50-10.00)
[2024-12-19 07:32] LABS: ALT 17 U/L (4-49); AST 16 U/L (17-59); African American GFR (CKD) >90 (>60 ml/min/1.73 sqM); Albumin 3.4 g/dL (3.5-5.0); Alkaline Phosphatase 72 U/L (38-126); Anion Gap 8 mmol/L; Blood Urea Nitrogen 27 mg/dL (9-20); Carbon Dioxide 31 mmol/L (22-30); Chloride 100 mmol/L (98-107); Glucose 164 mg/dL (74-99); Magnesium 1.8 mg/dL (1.6-2.3); Non-African American GFR(CKD) >90 (>60 ml/min/1.73 sqM); Phosphorus 3.3 mg/dL (2.5-4.5); Potassium 4.5 mmol/L (3.5-5.1); Sodium 139 mmol/L (137-145); Total Bilirubin 0.5 mg/dL (0.2-1.3); Total Protein 6.2 g/dL (6.3-8.2)
[2024-12-19] MEDS: SYMBICORT 160-4.5 MCG INHALER INHALATION SCH (07:56)
[2024-12-19] MEDS: ALBUTEROL NEBULIZED 2.5 MG/3 ML INHALATION SCH (07:56)
[2024-12-19] MEDS: TIOTROPIUM 2.5 MCG INHALER INHALATION SCH (07:56)
[2024-12-19] MEDS: NICOTINE 21MG/24HR PATCH TRANSDERM SCH (09:09)
[2024-12-19] MEDS: DAPAGLIFLOZIN PROPANEDIOL 5 MG TABLET PO SCH (12:13)
[2024-12-19] MEDS: PANTOPRAZOLE 40 MG TABLET PO SCH (12:13)
[2024-12-19] MEDS: SERTRALINE 25 MG TAB PO SCH (12:13)
[2024-12-19] MEDS: SACUBITRIL/VALSARTAN 24 MG-26 MG TABLET PO SCH (12:13)
[2024-12-19] MEDS: SPIRONOLACTONE 25 MG TAB PO SCH (12:13)
[2024-12-19] MEDS: METOPROLOL SUCCINATE (ER) 25 MG TAB.ER.24H PO SCH (12:14)
[2024-12-19] MEDS: ASPIRIN 81 MG PO SCH (12:14)
[2024-12-19] MEDS: TAMSULOSIN 0.4 MG CAP.ER.24H PO SCH (12:14)
--- NOTE | 2024-12-19 15:31 | P.HPIM ---
History of Present Illness H&P Date: 12/19/24 Chief Complaint: Short of breath Pleasant 64-year-old patient who follows with Dr. Mancia. Paver Dr. Agosto. Chronic stable medical conditions include GERD, hyperlipidemia, osteoarthritis , anxiety depression. Smoking - 1 pack a day. September 2024: Nonobstructive CAD At baseline patient - short of breath. 2.5 L of oxygen at home And presents with worsening short of breath.. Thick yellow copious sputum. Decreased appetite. Tired. Gets short of breath with few steps. Wheezing. Review of systems: GEN.: Weight loss, decreased appetite EYES: None HEENT: None NECK: None RESPIRATORY: As above CARDIOVASCULAR: As above GASTROINTESTINAL: None GENITOURINARY: None MUSCULOSKELETAL: Some joint pains LYMPHATICS: None HEMATOLOGICAL: None PSYCHIATRY: Anxious NEUROLOGICAL: None Past medical history to include: COPD, GERD, hyperlipidemia, osteoarthritis, prostate cancer, anxiety depression nonobstructive CAD with cardiac cath September 2024 Social history: Smokes a pack, and more previously since age 16. No alcohol. Lives with his . Physical examination: VITAL SIGNS:, 122, 28, 122 x 62, 87 % on 4 L presented GENERAL: Tripod position generalized wasting of muscles loss of subcutaneous fat. Short of breath at rest EYES: Pupils equal. Conjunctiva normal. HEENT: External appearance of nose and ears normal, oral cavity grossly normal. NECK: JVD not raised; masses not palpable. HEART: First and second heart sounds are normal; no edema. LUNGS: Respiratory rate increased, accessory muscles working, not able to speak in full sentence, diminished breath sounds, ABDOMEN: Soft, nontender, liver spleen not palpable, no masses palpable. PSYCH: [Alert and oriented x3; mood and affect anxious MUSCULOSKELETAL:No Clubbing/cyanosis; decreased muscle mass and increased, bony prominences, OA INVESTIGATIONS, reviewed in the clinical context: December 19: White count 16.2 hemoglobin 14 platelets 275 sodium 139 potassium 4.5 creatinine 0.76 albumin 3.4 Chest x-ray film personally reviewed by me-severe hyperinflation. Prominent pulmonary artery. 2D echo: [September 2024] EF 20-25%. Mid anterior septal lateral wall severe hypokinesis. Assessment and plan: -Acute severe COPD exacerbation in a current smoker, acute severe tracheobronchitis, causing acute hypoxic respiratory IV Solu-Medrol 60 mg Q6, DuoNeb 4 times daily, nebulized Pulmicort 1 mg every 12. Nebulized Perforomist -Acute severe truncal pancreatitis with significant productive sputum For Gram stain culture -Nonobstructive coronary artery disease with mild diffuse luminal irregularities in LAD and RCA. 50% mid PDA disease. Cardiac catheterization September 2024 Aspirin. Lipitor. -Ischemic cardiomyopathy EF 20-25 %. Cozaar. Toprol-XL. Aldactone 25 mg a day -Acute hypoxic respiratory failure from COPD: Liters nasal cannula -Chronic hypoxic respiratory failure from COPD Home oxygen 2.5 L -Chronic nicotine dependence, cigarettes smoker Nicotine patch -Severe protein calorie malnutrition Ensure 1 can by mouth 3 times a day. Consult dietitian -Hyperlipidemia Lipitor 40 mg daily at bedtime -Chronic insomnia Melatonin -GERD Prilosec -Anxiety depression Zoloft -Primary osteoarthritis Tylenol as needed -Full code Discussed with the patient and at the bedside. Pulmonary following Past Medical History Past Medical History: Cancer, COPD, GERD/Reflux, Hyperlipidemia, Osteoarthritis (OA), Pneumonia, Prostate Disorder Additional Past Medical History / Comment(s): Hx Prostate cancer, bilateral hand fx in past History of Any Multi-Drug Resistant Organisms: MRSA Date of last positivie culture/infection: 02/28/18 MDRO Source:: MRSA URINE Past Surgical History: Hernia Repair, Prostate Surgery Additional Past Surgical History / Comment(s): colonoscopy, surgery for punctured lung, Past Anesthesia/Blood Transfusion Reactions: No Reported Reaction Past Psychological History: Anxiety, Depression Smoking Status: Current every day smoker Past Alcohol Use History: None Reported Past Drug Use History: None Reported - Past Family History Father Family Medical History: Cancer Additional Family Medical History / Comment(s): ; prostate CA Mother Family Medical History: Cancer Additional Family Medical History / Comment(s): , lung CA Brother(s) Family Medical History: Cancer Additional Family Medical History / Comment(s): Prostate cancer, . Medications and Allergies Home Medications Medication Instructions Recorded Confirmed Type Atorvastatin [Lipitor] 40 mg PO HS 06/04/16 12/19/24 History Omeprazole [PriLOSEC] 20 mg PO DAILY 06/04/16 12/19/24 History Sertraline [Zoloft] 25 mg PO DAILY 10/08/23 12/19/24 History Tamsulosin [Flomax] 0.4 mg PO DAILY 09/26/24 12/19/24 History Albuterol Sulfate [Ventolin HFA] 2 puff INHALATION RT-Q4H PRN #0 09/29/24 12/19/24 Rx Aspirin 81 mg PO DAILY tab 09/29/24 12/19/24 Rx Losartan [Cozaar] 25 mg PO HS #30 tab 09/29/24 12/19/24 Rx Metoprolol Succinate (ER) [Toprol 25 mg PO DAILY #30 tab 09/29/24 12/19/24 Rx XL] Spironolactone [Aldactone] 25 mg PO DAILY #30 tab 09/29/24 12/19/24 Rx Empagliflozin [Jardiance] 10 mg PO DAILY 12/19/24 12/19/24 History Ipratropium-Albuterol Nebulize 3 ml INHALATION RT-Q6H PRN 12/19/24 12/19/24 History [Duoneb 0.5 mg-3 mg/3 ml Soln] Sacubitril/Valsartan [Entresto 24 1 tab PO BID 12/19/24 12/19/24 History mg-26 mg Tablet] Allergies Allergy/AdvReac Type Severity Reaction Status Date / Time No Known Allergies Allergy Verified 12/19/24 09:31 Physical Exam Vitals: Vital Signs Temp Pulse Pulse Resp BP BP Pulse Ox 12/19/24 08:10 88 12/19/24 07:57 86 12/19/24 06:51 97.8 F 72 16 112/61 95 12/19/24 05:46 67 16 101/57 94 L 12/19/24 03:53 75 18 101/51 96 12/19/24 02:00 97.7 F 93 17 125/60 95 12/19/24 01:08 94 18 105/68 93 L 12/18/24 23:46 98 12/18/24 23:36 90 12/18/24 22:27 100 18 109/67 90 L 12/18/24 21:18 102 H 20 102/59 92 L 12/18/24 20:56 106 H 12/18/24 20:35 112 H 12/18/24 20:21 107 H 24 93 L 12/18/24 20:02 97.9 F 122 H 28 H 122/62 87 L Intake and Output 12/18/24 12/19/24 12/19/24 22:59 06:59 14:59 Other: Weight 46.72 kg Results CBC & Chem 7: 12/19/24 06:53 12/19/24 06:53 Labs: Abnormal Lab Results - Last 24 Hours (Table) 12/18/24 12/18/24 12/19/24 Range/Units 20:07 20:07 06:53 WBC 18.22 H 16.28 H (4.50-10.00) 10*3/uL MCV 97.8 H 99.6 H (80.0-97.0) fL MCHC 31.4 L (32.0-37.0) g/dL MPV 9.4 L (9.5-12.2) fL Immature Gran # 0.09 H 0.05 H (0.00-0.04) 10*3/uL Neutrophils # 15.84 H 15.36 H (1.80-7.70) 10*3/uL Lymphocytes # 0.68 L 0.31 L (0.90-5.00) 10*3/uL Monocytes # 1.44 H (0.20-1.00) 10*3/uL Eosinophils # 0.00 L (0.04-0.35) 10*3/uL Chloride 97 L (98-107) mmol/L Carbon Dioxide 32 H (22-30) mmol/L BUN 29 H (9-20) mg/dL Glucose (74-99) mg/dL AST (17-59) U/L Total Protein (6.3-8.2) g/dL Albumin (3.5-5.0) g/dL 12/19/24 Range/Units 06:53 WBC (4.50-10.00) 10*3/uL MCV (80.0-97.0) fL MCHC (32.0-37.0) g/dL MPV (9.5-12.2) fL Immature Gran # (0.00-0.04) 10*3/uL Neutrophils # (1.80-7.70) 10*3/uL Lymphocytes # (0.90-5.00) 10*3/uL Monocytes # (0.20-1.00) 10*3/uL Eosinophils # (0.04-0.35) 10*3/uL Chloride (98-107) mmol/L Carbon Dioxide 31 H (22-30) mmol/L BUN 27 H (9-20) mg/dL Glucose 164 H (74-99) mg/dL AST 16 L (17-59) U/L Total Protein 6.2 L (6.3-8.2) g/dL Albumin 3.4 L (3.5-5.0) g/dL
[2024-12-19] MEDS: ACETAMINOPHEN TAB 325 MG TAB PO PRN (19:29)
[2024-12-19] MEDS: ATORVASTATIN 40 MG TAB PO SCH (20:16)
[2024-12-19] MEDS: LOSARTAN 25 MG TAB PO SCH (20:16)
[2024-12-19] MEDS: guaiFENesin 600 MG TABLET.ER PO SCH (20:16)
[2024-12-19] MEDS: IPRATROPIUM-ALBUTEROL 3 ML NEB INHALATION SCH (20:33)
[2024-12-19] MEDS: BUDESONIDE 1 MG/2 ML NEBU INHALATION SCH (20:42)
[2024-12-19] MEDS: FORMOTEROL FUMARATE 20 MCG/2 ML NEBU INHALATION SCH (20:42)
[2024-12-20 14:50] VITALS: BMI 16.6
--- NOTE | 2024-12-20 16:09 | P.PN ---
Subjective Progress Note Date: 12/20/24 Patient is a 64-year-old male with past medical history significant for hypertension, hyperlipidemia, nonocclusive coronary artery disease, nonocclusive cardiomyopathy with a ejection fraction of 20 to 25% and a LifeVest, prostate cancer with previous prostatectomy, and oxygen dependent COPD. He does follow in the pulmonary office with Dr. Agosto. He has an FEV1 23% of predicted. He is oxygen dependent on 2.5 L/min nasal cannula 08/02. Normally maintained on Dulera and Spiriva inhalers; however, he has been out of this medication for 2 months. This is due to insurance issues. He has been using his DuoNebs. Brought into the emergency department late last night by EMS. He was in some respiratory distress, tripod breathing. He was given multiple DuoNeb treatments in the ED and loaded with IV Solu-Medrol. Chest x-ray did not show any acute cardiopulmonary process. Hyperinflation and moderate scattered fibrotic changes. Labs including a count of 18.2, hemoglobin 15.6, platelets 297. CMP: Sodium 139, potassium 4.4, chloride 97, serum bicarb 32, BUN 29, creatinine 0.68, glucose 88. LFTs unremarkable. Troponin less than 0.012. NT proBNP 168. Patient currently being evaluated in the emergency department. Endorses increased work of breathing, persistent cough, wheezing, chest tightness, bilateral rib pain with coughing approximately. Cough is productive with yellow to green sputum. Symptoms started 1 to 2 weeks ago. Denies fever/chills. States he was recently [place] a trip [place] on . He denies sick contacts. He is chronically oxygen dependent on 2.5 L/min nasal cannula, however, turned this up to 3 L/min because of his increased work of breathing. States that he recently had some work done on their bathroom and the smell from the glue may have triggered his COPD. He denies any chest pain, heart palpitations, lightheadedness, syncopal events, lower extremity edema. He does have a LifeVest at home, however, not wearing it. Current vital signs: Heart rate 94 bpm, blood pressure 105/68 mmHg, nontachypneic, SpO2 reading 93% on 3 L/min nasal cannula. On today's evaluation of 12/20/2024, the patient is being seen for a follow-up. The patient is feeling slightly improved compared to yesterday. Continues to have some cough and congestion. No fever or chills. No chest pain. He was second to 60.2 with a hemoglobin of 14 and a platelet count of 275. BUN is 27 with a creatinine of 0.7 and sodium levels at 139 and a potassium level is at 4. 5. Oxygenation remained stable and the patient remains on 5 L with a pulse ox of 97% and he is afebrile with a temperature of 96.3. Remains on the same regimen of bronchodilators and steroids. He was able to give a sputum sample and results are positive for haemophilus influenza. The patient is on Zithromax Objective - Vital Signs Vital signs: Vital Signs Temp 97 F L 12/20/24 07:44 Pulse 90 12/20/24 09:35 Resp 16 12/20/24 07:44 BP 105/53 12/20/24 07:44 Pulse Ox 96 12/20/24 09:18 FiO2 Intake & Output 12/19/24 12/20/24 12/20/24 18:59 06:59 18:59 Output Total 800 Balance -800 Weight 46.72 kg Output: Urine 800 - Exam GENERAL EXAM: Alert, 64-year-old male, cachectic, on 5 L/min nasal cannula, fairly comfortable in no apparent distress. HEAD: Normocephalic and atraumatic EYES: Normal reaction of pupils, equal size. NOSE: Clear with pink turbinates. THROAT: No erythema or exudates. NECK: No masses, no JVD. CHEST: No chest wall deformity. LUNGS: Equal air entry with diffuse bilateral expiratory wheezing and rhonchi. No conversational dyspnea or accessory muscle us while at rest while at rest. Cardiovascular: Normal S1/S2, regular rhythm, no extra heart sounds. ABDOMEN: No hepatosplenomegaly, active bowel sounds, no guarding or rigidity. SPINE: No scoliosis or deformity SKIN: No rashes CENTRAL NERVOUS SYSTEM: No focal deficits, tone is normal in all 4 extremities. EXTREMITIES: There is no peripheral edema or cyanosis. Digital clubbing noted. Peripheral pulses are intact. - Labs CBC & Chem 7: 12/19/24 06:53 12/19/24 06:53 Labs: Microbiology - Last 24 Hours (Table) 12/19/24 09:10 Gram Stain - Preliminary Sputum Assessment and Plan Assessment: Acute COPD exacerbation, with an acute haemophilus influenza tracheobronchitis. Currently on Zithromax. Currently on bronchodilators and steroids. Acute on chronic hypoxemic respiratory failure, currently on 5 L/min nasal cannula, chest x-ray showing chronic changes with marked hyperinflation and scattered fibrotic changes. No acute infiltrates, pleural effusions, pneumothoraces. Acute leukocytosis secondary to above History of nonocclusive coronary artery disease History of nonischemic cardiomyopathy, with an ejection fraction of 25 to 30%. History of hyperlipidemia Hypertension Very severe chronic obstructive pulmonary disease, with an FEV1 26% of predicted Chronic hypoxemic respiratory failure, secondary to above Chronic tobacco dependence Medication noncompliance, patient has been out of his Dulera inhaler for appro ximately 2 months due to financial/insurance related issues Severe protein calorie malnutrition with a BMI of 16.6 kg/m History of pneumothorax History of prostate cancer with previous prostatectomy History of anxiety/depression Plan: Patient has Haemophilus influenzae tracheobronchitis and the patient is currently on Zithromax Continue supplemental oxygen to maintain oxygen saturation of 90% or greater, currently on 5 L Continue Symbicort and Spiriva inhalers Continue albuterol nebs Continue IV Solu-Medrol Smoking cessation counseling performed Dietary advice was given Patient educated on the importance of wearing his LifeVest We will continue to follow-up Time with Patient: Greater than 30
--- NOTE | 2024-12-20 17:48 | P.PN ---
Progress Note - Text Progress Note Date: 12/20/24 Chief Complaint: Short of breath Pleasant 64-year-old patient who follows with Dr. Mancia. Quality Assurance Nurse Dr. Agosto. Chronic stable medical conditions include GERD, hyperlipidemia, osteoarthritis , anxiety depression. Smoking - 1 pack a day. September 2024: Nonobstructive CAD At baseline patient - short of breath. 2.5 L of oxygen at home And presents with worsening short of breath.. Thick yellow copious sputum. Decreased appetite. Tired. Gets short of breath with few steps. Wheezing. 20 December: Sitting in a tripod position. Short of breath. Continues to put out thick yellow sputum. Remains on IV Solu-Medrol bronchodilators nebulized bronchodilators. Discussed with at the bedside. sputum-hemophilus Influenza Active Medications Acetaminophen (Acetaminophen Tab 325 Mg Tab) 650 mg PO Q6HR PRN PRN Reason: Fever and/ or Pain Last Admin: 12/20/24 00:22 Dose: 650 mg Albuterol/Ipratropium (Ipratropium-Albuterol 3 Ml Neb) 3 ml INHALATION RT-Q4H [facility] Last Admin: 12/20/24 16:32 Dose: 3 ml Aspirin (Aspirin 81 Mg) 81 mg PO DAILY [facility] Last Admin: 12/20/24 09:04 Dose: 81 mg Atorvastatin Calcium (Atorvastatin 40 Mg Tab) 40 mg PO HS [facility] Last Admin: 12/19/24 20:16 Dose: 40 mg Azithromycin (Azithromycin 500 Mg Tab) 500 mg PO HS [facility]; Protocol Stop: 12/20/24 21:01 Last Admin: 12/19/24 20:16 Dose: 500 mg Budesonide (Budesonide 1 Mg/2 Ml Nebu) 1 mg INHALATION RT-BID [facility] Last Admin: 12/20/24 09:18 Dose: 1 mg Dapagliflozin (Dapagliflozin Propanediol 5 Mg Tablet) 5 mg PO DAILY [facility] Last Admin: 12/20/24 09:04 Dose: 5 mg Formoterol Fumarate (Formoterol Fumarate 20 Mcg/2 Ml Nebu) 20 mcg INHALATION RT-BID [facility] Last Admin: 12/20/24 09:17 Dose: 20 mcg Guaifenesin (Guaifenesin 600 Mg Tablet.Er) 1,200 mg PO Q12HR [facility] Last Admin: 12/20/24 09:04 Dose: 1,200 mg Losartan Potassium (Losartan 25 Mg Tab) 25 mg PO HS [facility] Last Admin: 12/19/24 20:16 Dose: 25 mg Methylprednisolone Sodium Succinate (Methylprednisolone Sod Succi 125 Mg/2 Ml Vial) 60 mg IV Q6H [facility] Last Admin: 12/20/24 14:25 Dose: 60 mg Metoprolol Succinate (Metoprolol Succinate (Er) 25 Mg Tab.Er.24h) 25 mg PO DAILY [facility] Last Admin: 12/20/24 09:05 Dose: 25 mg Naloxone HCl (Naloxone 0.4 Mg/Ml 1 Ml Vial) 0.2 mg IVP Q2M PRN PRN Reason: Opioid Reversal Nicotine (Nicotine 21mg/24hr Patch) 1 patch TRANSDERM DAILY [facility] Last Admin: 12/20/24 09:05 Dose: 1 patch Ondansetron HCl (Ondansetron 4 Mg/2 Ml Vial) 4 mg IVP Q8HR PRN PRN Reason: Nausea And Vomiting Pantoprazole Sodium (Pantoprazole 40 Mg Tablet) 40 mg PO DAILY [facility] Last Admin: 12/20/24 09:05 Dose: 40 mg Sacubitril/Valsartan (Sacubitril/Valsartan 24 Mg-26 Mg Tablet) 1 each PO BID [facility] Last Admin: 12/20/24 09:04 Dose: 1 each Sertraline HCl (Sertraline 25 Mg Tab) 25 mg PO DAILY [facility] Last Admin: 12/20/24 09:05 Dose: 25 mg Spironolactone (Spironolactone 25 Mg Tab) 25 mg PO DAILY [facility] Last Admin: 12/20/24 09:05 Dose: 25 mg Tamsulosin HCl (Tamsulosin 0.4 Mg Cap.Er.24h) 0.4 mg PO DAILY [facility] Last Admin: 12/20/24 09:05 Dose: 0.4 mg Past medical history to include: COPD, GERD, hyperlipidemia, osteoarthritis, prostate cancer, anxiety depression nonobstructive CAD with cardiac cath September 2024 Social history: Smokes a pack, and more previously since age 16. No alcohol. Lives with his . Physical examination: VITAL SIGNS:, 96.3, 92, 16, 116 x 57, 97% on 5 L GENERAL: Tripod position generalized wasting of muscles loss of subcutaneous fat. Short of breath at rest EYES: Pupils equal. Conjunctiva normal. HEENT: External appearance of nose and ears normal, oral cavity grossly normal. NECK: JVD not raised; masses not palpable. HEART: First and second heart sounds are normal; no edema. LUNGS: Respiratory rate increased, accessory muscles working, not able to speak in full sentence, diminished breath sounds, ABDOMEN: Soft, nontender, liver spleen not palpable, no masses palpable. PSYCH: [Alert and oriented x3; mood and affect anxious MUSCULOSKELETAL:No Clubbing/cyanosis; decreased muscle mass and increased, bony prominences, OA INVESTIGATIONS, reviewed in the clinical context: Sputum: Haemophilus influenza December 19: White count 16.2 hemoglobin 14 platelets 275 sodium 139 potassium 4.5 creatinine 0.76 albumin 3.4 Chest x-ray film personally reviewed by me-severe hyperinflation. Prominent pulmonary artery. 2D echo: [September 2024] EF 20-25%. Mid anterior septal lateral wall severe hypokinesis. Assessment and plan: -Acute severe COPD exacerbation in a current smoker, acute severe tracheobronchitis, causing acute hypoxic respiratory failure: Slow to respond IV Solu-Medrol 60 mg Q6, DuoNeb 4 times daily, nebulized Pulmicort 1 mg every 12. Nebulized Perforomist -Acute severe truncal pancreatitis with significant productive sputum slow response Haemophilus influenza -Nonobstructive coronary artery disease with mild diffuse luminal irregularities in LAD and RCA. 50% mid PDA disease. Cardiac catheterization September 2024 Aspirin. Lipitor. -Ischemic cardiomyopathy EF 20-25 %. Cozaar. Toprol-XL. Aldactone 25 mg a day -Acute hypoxic respiratory failure from COPD: Liters nasal cannula -Chronic hypoxic respiratory failure from COPD Home oxygen 2.5 L -Chronic nicotine dependence, cigarettes smoker Nicotine patch -Severe protein calorie malnutrition Ensure 1 can by mouth 3 times a day. Consult dietitian -Hyperlipidemia Lipitor 40 mg daily at bedtime -Chronic insomnia Melatonin -GERD Prilosec -Anxiety depression Zoloft -Primary osteoarthritis Tylenol as needed -Full code Discussed with the patient and . Continue current treatment plan. Past Medical History Past Medical History: Cancer, COPD, GERD/Reflux, Hyperlipidemia, Osteoarthritis (OA), Pneumonia, Prostate Disorder Additional Past Medical History / Comment(s): Hx Prostate cancer, bilateral hand fx in past History of Any Multi-Drug Resistant Organisms: MRSA Date of last positivie culture/infection: 02/28/18 MDRO Source:: MRSA URINE Past Surgical History: Hernia Repair, Prostate Surgery Additional Past Surgical History / Comment(s): colonoscopy, surgery for punctured lung, Past Anesthesia/Blood Transfusion Reactions: No Reported Reaction Past Psychological History: Anxiety, Depression Smoking Status: Current every day smoker Past Alcohol Use History: None Reported Past Drug Use History: None Reported
[2024-12-20] MEDS ORDERED: IPRATROPIUM-ALBUTEROL 3 ML NEB INHALATION PRN (20:45)
[2024-12-20] MEDS: MELATONIN 5 MG TABLET PO PRN (22:36)
[2024-12-21] MEDS: IPRATROPIUM-ALBUTEROL 3 ML NEB INHALATION SCH (08:47)
[2024-12-21] MEDS: AMOXIC-POT CLAV 875-125MG 1 EACH TAB PO SCH (12:54)
--- NOTE | 2024-12-21 17:56 | P.PN ---
Subjective Progress Note Date: 12/21/24 Patient is a 64-year-old male with past medical history significant for hypertension, hyperlipidemia, nonocclusive coronary artery disease, nonocclusive cardiomyopathy with a ejection fraction of 20 to 25% and a LifeVest, prostate cancer with previous prostatectomy, and oxygen dependent COPD. He does follow in the pulmonary office with Dr. Agosto. He has an FEV1 23% of predicted. He is oxygen dependent on 2.5 L/min nasal cannula 08/02. Normally maintained on Dulera and Spiriva inhalers; however, he has been out of this medication for 2 months. This is due to insurance issues. He has been using his DuoNebs. Brought into the emergency department late last night by EMS. He was in some respiratory distress, tripod breathing. He was given multiple DuoNeb treatments in the ED and loaded with IV Solu-Medrol. Chest x-ray did not show any acute cardiopulmonary process. Hyperinflation and moderate scattered fibrotic changes. Labs including a count of 18.2, hemoglobin 15.6, platelets 297. CMP: Sodium 139, potassium 4.4, chloride 97, serum bicarb 32, BUN 29, creatinine 0.68, glucose 88. LFTs unremarkable. Troponin less than 0.012. NT proBNP 168. Patient currently being evaluated in the emergency department. Endorses increased work of breathing, persistent cough, wheezing, chest tightness, bilateral rib pain with coughing approximately. Cough is productive with yellow to green sputum. Symptoms started 1 to 2 weeks ago. Denies fever/chills. States he was recently on a trip [place] family on . He denies sick contacts. He is chronically oxygen dependent on 2.5 L/min nasal cannula, however, turned this up to 3 L/min because of his increased work of breathing. States that he recently had some work done on their bathroom and the smell from the glue may have triggered his COPD. He denies any chest pain, heart palpitations, lightheadedness, syncopal events, lower extremity edema. He does have a LifeVest at home, however, not wearing it. Current vital signs: Heart rate 94 bpm, blood pressure 105/68 mmHg, nontachypneic, SpO2 reading 93% on 3 L/min nasal cannula. On today's evaluation of 12/20/2024, the patient is being seen for a follow-up. The patient is feeling slightly improved compared to yesterday. Continues to have some cough and congestion. No fever or chills. No chest pain. He was second to 60.2 with a hemoglobin of 14 and a platelet count of 275. BUN is 27 with a creatinine of 0.7 and sodium levels at 139 and a potassium level is at 4. 5. Oxygenation remained stable and the patient remains on 5 L with a pulse ox of 97% and he is afebrile with a temperature of 96.3. Remains on the same regimen of bronchodilators and steroids. He was able to give a sputum sample and results are positive for haemophilus influenza. The patient is on Zithromax On 12/21/2024, the patient is being seen for a follow-up. Continues to cough out purulent respiratory secretions and the patient was started on Augmentin. Remains on IV Solu-Medrol. Remains on DuoNeb nebulizers [id number]. Rest of the medications are essentially unchanged. The white cell count is 16 with a hemoglobin of 14 and those labs are obtained on 12/19/2024. Oxygenation remained stable and the patient is on 4 L of oxygen by nasal cannula with a pulse ox of 97%. No interval worsening shortness of breath. Overall respiratory status is stable. No other significant events overnight. Objective - Vital Signs Vital signs: Vital Signs Temp 97.4 F L 12/21/24 12:10 Pulse 72 12/21/24 16:52 Resp 18 12/21/24 12:10 BP 116/57 12/21/24 12:10 Pulse Ox 97 12/21/24 12:10 FiO2 Intake & Output 12/20/24 12/21/24 12/21/24 18:59 06:59 18:59 Weight 46.72 kg Other: Voiding Method Toilet # Voids 1 3 2 # Bowel Movements 1 - Exam GENERAL EXAM: Alert, 64-year-old male, cachectic, on 5 L/min nasal cannula, fairly comfortable in no apparent distress. HEAD: Normocephalic and atraumatic EYES: Normal reaction of pupils, equal size. NOSE: Clear with pink turbinates. THROAT: No erythema or exudates. NECK: No masses, no JVD. CHEST: No chest wall deformity. LUNGS: Equal air entry with diffuse bilateral expiratory wheezing and rhonchi. No conversational dyspnea or accessory muscle us while at rest while at rest. Cardiovascular: Normal S1/S2, regular rhythm, no extra heart sounds. ABDOMEN: No hepatosplenomegaly, active bowel sounds, no guarding or rigidity. SPINE: No scoliosis or deformity SKIN: No rashes CENTRAL NERVOUS SYSTEM: No focal deficits, tone is normal in all 4 extremities. EXTREMITIES: There is no peripheral edema or cyanosis. Digital clubbing noted. Peripheral pulses are intact. - Labs CBC & Chem 7: 12/19/24 06:53 12/19/24 06:53 Labs: Microbiology - Last 24 Hours (Table) 12/19/24 09:10 Gram Stain - Final Sputum Sputum Culture - Final Haemophilus influenzae Assessment and Plan Assessment: Acute COPD exacerbation, with an acute haemophilus influenza tracheobronchitis. Acute on chronic hypoxemic respiratory failure, currently on 4 L/min nasal cannula, chest x-ray showing chronic changes with marked hyperinflation and scattered fibrotic changes. No acute infiltrates, pleural effusions, pneumothoraces. Acute leukocytosis secondary to above History of nonocclusive coronary artery disease History of nonischemic cardiomyopathy, with an ejection fraction of 25 to 30%. History of hyperlipidemia Hypertension Very severe chronic obstructive pulmonary disease, with an FEV1 26% of predicted Chronic hypoxemic respiratory failure, secondary to above Chronic tobacco dependence Medication noncompliance, patient has been out of his Dulera inhaler for ap proximately 2 months due to financial/insurance related issues Severe protein calorie malnutrition with a BMI of 16.6 kg/m History of pneumothorax History of prostate cancer with previous prostatectomy History of anxiety/depression Plan: Patient has Haemophilus influenzae tracheobronchitis and the patient will be placed on oral Augmentin 875 mg p.o. twice a day Continue supplemental oxygen to maintain oxygen saturation of 90% or greater, currently on 4 L of oxygen nasal cannula Continue Symbicort and Spiriva inhalers Continue albuterol nebs Continue IV Solu-Medrol Smoking cessation counseling performed Dietary advice was given Patient educated on the importance of wearing his LifeVest We will continue to follow-up
--- NOTE | 2024-12-21 18:48 | P.PN ---
Progress Note - Text Progress Note Date: 12/21/24 Chief Complaint: Short of breath Pleasant 64-year-old patient who follows with Dr. Mancia. Head Of Biology Dr. Agosto. Chronic stable medical conditions include GERD, hyperlipidemia, osteoarthritis , anxiety depression. Smoking - 1 pack a day. September 2024: Nonobstructive CAD At baseline patient - short of breath. 2.5 L of oxygen at home And presents with worsening short of breath.. Thick yellow copious sputum. Decreased appetite. Tired. Gets short of breath with few steps. Wheezing. 20 December: Sitting in a tripod position. Short of breath. Continues to put out thick yellow sputum. Remains on IV Solu-Medrol bronchodilators nebulized bronchodilators. Discussed with at the bedside. sputum-hemophilus Influenza December 21: Lying bed. Tired very short of breath. Still bringing up thick yellow sputum. Cultures positive for haemophilus influenza. Antibiotics switched over to Augmentin. Active Medications Acetaminophen (Acetaminophen Tab 325 Mg Tab) 650 mg PO Q6HR PRN PRN Reason: Fever and/ or Pain Last Admin: 12/20/24 00:22 Dose: 650 mg Albuterol/Ipratropium (Ipratropium-Albuterol 3 Ml Neb) 3 ml INHALATION RT-QID [facility] Last Admin: 12/21/24 16:43 Dose: 3 ml Albuterol/Ipratropium (Ipratropium-Albuterol 3 Ml Neb) 3 ml INHALATION RT-Q2H PRN PRN Reason: Shortness Of Breath Or Wheezing Amoxicillin/Clavulanate Potassium (Amoxic-Pot Clav 875-125mg 1 Each Tab) 1 each PO Q12HR [facility]; Protocol Last Admin: 12/21/24 12:54 Dose: 1 each Aspirin (Aspirin 81 Mg) 81 mg PO DAILY [facility] Last Admin: 12/21/24 08:01 Dose: 81 mg Atorvastatin Calcium (Atorvastatin 40 Mg Tab) 40 mg PO HS [facility] Last Admin: 12/20/24 21:28 Dose: 40 mg Budesonide (Budesonide 1 Mg/2 Ml Nebu) 1 mg INHALATION RT-BID [facility] Last Admin: 12/21/24 08:47 Dose: 1 mg Dapagliflozin (Dapagliflozin Propanediol 5 Mg Tablet) 5 mg PO DAILY [facility] Last Admin: 12/21/24 08:01 Dose: 5 mg Formoterol Fumarate (Formoterol Fumarate 20 Mcg/2 Ml Nebu) 20 mcg INHALATION RT-BID [facility] Last Admin: 12/21/24 08:47 Dose: 20 mcg Guaifenesin (Guaifenesin 600 Mg Tablet.Er) 1,200 mg PO Q12HR [facility] Last Admin: 12/21/24 08:01 Dose: 1,200 mg Losartan Potassium (Losartan 25 Mg Tab) 25 mg PO HS [facility] Last Admin: 12/20/24 21:27 Dose: Not Given Melatonin (Melatonin 5 Mg Tablet) 5 mg PO HS PRN PRN Reason: Insomnia Last Admin: 12/20/24 22:36 Dose: 5 mg Methylprednisolone Sodium Succinate (Methylprednisolone Sod Succi 125 Mg/2 Ml Vial) 60 mg IV Q6H [facility] Last Admin: 12/21/24 15:03 Dose: 60 mg Metoprolol Succinate (Metoprolol Succinate (Er) 25 Mg Tab.Er.24h) 25 mg PO DAILY [facility] Last Admin: 12/21/24 08:01 Dose: 25 mg Naloxone HCl (Naloxone 0.4 Mg/Ml 1 Ml Vial) 0.2 mg IVP Q2M PRN PRN Reason: Opioid Reversal Nicotine (Nicotine 21mg/24hr Patch) 1 patch TRANSDERM DAILY [facility] Last Admin: 12/21/24 08:01 Dose: 1 patch Ondansetron HCl (Ondansetron 4 Mg/2 Ml Vial) 4 mg IVP Q8HR PRN PRN Reason: Nausea And Vomiting Pantoprazole Sodium (Pantoprazole 40 Mg Tablet) 40 mg PO DAILY [facility] Last Admin: 12/21/24 08:01 Dose: 40 mg Sacubitril/Valsartan (Sacubitril/Valsartan 24 Mg-26 Mg Tablet) 1 each PO BID [facility] Last Admin: 12/21/24 08:01 Dose: 1 each Sertraline HCl (Sertraline 25 Mg Tab) 25 mg PO DAILY [facility] Last Admin: 12/21/24 08:01 Dose: 25 mg Spironolactone (Spironolactone 25 Mg Tab) 25 mg PO DAILY [facility] Last Admin: 12/21/24 08:01 Dose: 25 mg Tamsulosin HCl (Tamsulosin 0.4 Mg Cap.Er.24h) 0.4 mg PO DAILY [facility] Last Admin: 12/21/24 08:01 Dose: 0.4 mg Past medical history to include: COPD, GERD, hyperlipidemia, osteoarthritis, prostate cancer, anxiety depression nonobstructive CAD with cardiac cath September 2024 Social history: Smokes a pack, and more previously since age 16. No alcohol. Lives with his . Physical examination: VITAL SIGNS:, 97.4, 78, 18, 116 x 57, 97% - 4 L GENERAL: Tripod position generalized wasting of muscles loss of subcutaneous fat. Short of breath at rest EYES: Pupils equal. Conjunctiva normal. HEENT: External appearance of nose and ears normal, oral cavity grossly normal. NECK: JVD not raised; masses not palpable. HEART: First and second heart sounds are normal; no edema. LUNGS: Respiratory rate increased, accessory muscles working, diminished breath sounds, ABDOMEN: Soft, nontender, liver spleen not palpable, no masses palpable. PSYCH: [Alert and oriented x3; mood and affect anxious MUSCULOSKELETAL:No Clubbing/cyanosis; decreased muscle mass and increased, bony prominences, OA INVESTIGATIONS, reviewed in the clinical context: Sputum: Haemophilus influenza December 19: White count 16.2 hemoglobin 14 platelets 275 sodium 139 potassium 4.5 creatinine 0.76 albumin 3.4 Chest x-ray film personally reviewed by me-severe hyperinflation. Prominent pulmonary artery. 2D echo: [September 2024] EF 20-25%. Mid anterior septal lateral wall severe hypokinesis. Assessment and plan: -Acute severe COPD exacerbation in a current smoker, acute severe tracheobronchitis, causing acute hypoxic respiratory failure: Slow to respond IV Solu-Medrol 60 mg Q6, DuoNeb 4 times daily, nebulized Pulmicort 1 mg every 12. Nebulized Perforomist -Acute severe tracheobronchitis with significant productive sputum positive for haemophilus influenza Augmentin -Nonobstructive coronary artery disease with mild diffuse luminal irregularities in LAD and RCA. 50% mid PDA disease. Cardiac catheterization September 2024 Aspirin. Lipitor. -Ischemic cardiomyopathy EF 20-25 %. Cozaar. Toprol-XL. Aldactone 25 mg a day -Acute hypoxic respiratory failure from COPD: Liters nasal cannula -Chronic hypoxic respiratory failure from COPD Home oxygen 2.5 L -Chronic nicotine dependence, cigarettes smoker Nicotine patch -Severe protein calorie malnutrition Ensure 1 can by mouth 3 times a day. Consult dietitian -Hyperlipidemia Lipitor 40 mg daily at bedtime -Chronic insomnia Melatonin -GERD Prilosec -Anxiety depression Zoloft -Primary osteoarthritis Tylenol as needed -Full code Advanced COPD. Continue current treatment plan. Past Medical History Past Medical History: Cancer, COPD, GERD/Reflux, Hyperlipidemia, Osteoarthritis (OA), Pneumonia, Prostate Disorder Additional Past Medical History / Comment(s): Hx Prostate cancer, bilateral hand fx in past History of Any Multi-Drug Resistant Organisms: MRSA Date of last positivie culture/infection: 02/28/18 MDRO Source:: MRSA URINE Past Surgical History: Hernia Repair, Prostate Surgery Additional Past Surgical History / Comment(s): colonoscopy, surgery for punctured lung, Past Anesthesia/Blood Transfusion Reactions: No Reported Reaction Past Psychological History: Anxiety, Depression Smoking Status: Current every day smoker Past Alcohol Use History: None Reported Past Drug Use History: None Reported
--- NOTE | 2024-12-22 17:17 | P.PN ---
Progress Note - Text Progress Note Date: 12/22/24 Chief Complaint: Short of breath Pleasant 64-year-old patient who follows with Dr. Mancia. [facility] [employer] Dr. Agosto. Chronic stable medical conditions include GERD, hyperlipidemia, osteoarthritis , anxiety depression. Smoking - 1 pack a day. September 2024: Nonobstructive CAD At baseline patient - short of breath. 2.5 L of oxygen at home And presents with worsening short of breath.. Thick yellow copious sputum. Decreased appetite. Tired. Gets short of breath with few steps. Wheezing. 20 December: Sitting in a tripod position. Short of breath. Continues to put out thick yellow sputum. Remains on IV Solu-Medrol bronchodilators nebulized bronchodilators. Discussed with at the bedside. sputum-hemophilus Influenza December 21: Lying bed. Tired very short of breath. Still bringing up thick yellow sputum. Cultures positive for haemophilus influenza. Antibiotics switched over to Augmentin. December 22: Patient continues to bring up thick yellow-green sputum. Has been switched over to Augmentin. Other medication to continue. Patient is up to the bathroom. Up in the chair. Active Medications Acetaminophen (Acetaminophen Tab 325 Mg Tab) 650 mg PO Q6HR PRN PRN Reason: Fever and/ or Pain Last Admin: 12/20/24 00:22 Dose: 650 mg Albuterol/Ipratropium (Ipratropium-Albuterol 3 Ml Neb) 3 ml INHALATION RT-QID [facility] Last Admin: 12/22/24 16:06 Dose: 3 ml Albuterol/Ipratropium (Ipratropium-Albuterol 3 Ml Neb) 3 ml INHALATION RT-Q2H PRN PRN Reason: Shortness Of Breath Or Wheezing Amoxicillin/Clavulanate Potassium (Amoxic-Pot Clav 875-125mg 1 Each Tab) 1 each PO Q12HR [facility]; Protocol Last Admin: 12/22/24 08:33 Dose: 1 each Aspirin (Aspirin 81 Mg) 81 mg PO DAILY [facility] Last Admin: 12/22/24 08:33 Dose: 81 mg Atorvastatin Calcium (Atorvastatin 40 Mg Tab) 40 mg PO HS [facility] Last Admin: 12/21/24 21:42 Dose: 40 mg Budesonide (Budesonide 1 Mg/2 Ml Nebu) 1 mg INHALATION RT-BID [facility] Last Admin: 12/22/24 08:53 Dose: 1 mg Dapagliflozin (Dapagliflozin Propanediol 5 Mg Tablet) 5 mg PO DAILY [facility] Last Admin: 12/22/24 08:33 Dose: 5 mg Formoterol Fumarate (Formoterol Fumarate 20 Mcg/2 Ml Nebu) 20 mcg INHALATION RT-BID [facility] Last Admin: 12/22/24 08:53 Dose: 20 mcg Guaifenesin (Guaifenesin 600 Mg Tablet.Er) 1,200 mg PO Q12HR [facility] Last Admin: 12/22/24 08:33 Dose: 1,200 mg Losartan Potassium (Losartan 25 Mg Tab) 25 mg PO HS [facility] Last Admin: 12/21/24 21:41 Dose: 25 mg Melatonin (Melatonin 5 Mg Tablet) 5 mg PO HS PRN PRN Reason: Insomnia Last Admin: 12/21/24 21:41 Dose: 5 mg Methylprednisolone Sodium Succinate (Methylprednisolone Sod Succi 125 Mg/2 Ml Vial) 60 mg IV Q6H [facility] Last Admin: 12/22/24 14:00 Dose: 60 mg Metoprolol Succinate (Metoprolol Succinate (Er) 25 Mg Tab.Er.24h) 25 mg PO DAILY [facility] Last Admin: 12/22/24 08:33 Dose: 25 mg Naloxone HCl (Naloxone 0.4 Mg/Ml 1 Ml Vial) 0.2 mg IVP Q2M PRN PRN Reason: Opioid Reversal Nicotine (Nicotine 21mg/24hr Patch) 1 patch TRANSDERM DAILY [facility] Last Admin: 12/22/24 08:33 Dose: 1 patch Ondansetron HCl (Ondansetron 4 Mg/2 Ml Vial) 4 mg IVP Q8HR PRN PRN Reason: Nausea And Vomiting Pantoprazole Sodium (Pantoprazole 40 Mg Tablet) 40 mg PO DAILY [facility] Last Admin: 12/22/24 08:33 Dose: 40 mg Sacubitril/Valsartan (Sacubitril/Valsartan 24 Mg-26 Mg Tablet) 1 each PO BID [facility] Last Admin: 12/22/24 08:33 Dose: 1 each Sertraline HCl (Sertraline 25 Mg Tab) 25 mg PO DAILY [facility] Last Admin: 12/22/24 08:33 Dose: 25 mg Spironolactone (Spironolactone 25 Mg Tab) 25 mg PO DAILY [facility] Last Admin: 12/22/24 08:33 Dose: 25 mg Tamsulosin HCl (Tamsulosin 0.4 Mg Cap.Er.24h) 0.4 mg PO DAILY [facility] Last Admin: 12/22/24 08:33 Dose: 0.4 mg Past medical history to include: COPD, GERD, hyperlipidemia, osteoarthritis, prostate cancer, anxiety depression nonobstructive CAD with cardiac cath September 2024 Social history: Smokes a pack, and more previously since age 16. No alcohol. Lives with his . Physical examination: VITAL SIGNS:, 97.5, 73, 16, 111 x 76, 95% GENERAL: Laying in bed generalized wasting of muscles loss of subcutaneous fat. Short of breath at rest EYES: Pupils equal. Conjunctiva normal. HEENT: External appearance of nose and ears normal, oral cavity grossly normal. NECK: JVD not raised; masses not palpable. HEART: First and second heart sounds are normal; no edema. LUNGS: Respiratory rate increased, accessory muscles working, diminished breath sounds, ABDOMEN: Soft, nontender, liver spleen not palpable, no masses palpable. PSYCH: [Alert and oriented x3; mood and affect anxious MUSCULOSKELETAL:No Clubbing/cyanosis; decreased muscle mass and increased, bony prominences, OA INVESTIGATIONS, reviewed in the clinical context: Sputum: Haemophilus influenza December 19: White count 16.2 hemoglobin 14 platelets 275 sodium 139 potassium 4.5 creatinine 0.76 albumin 3.4 Chest x-ray film personally reviewed by me-severe hyperinflation. Prominent pulmonary artery. 2D echo: [September 2024] EF 20-25%. Mid anterior septal lateral wall severe hypokinesis. Assessment and plan: -Acute severe COPD exacerbation in a current smoker, acute severe tracheobronchitis, causing acute hypoxic respiratory failure: Improving slowly IV Solu-Medrol 60 mg Q6, DuoNeb 4 times daily, nebulized Pulmicort 1 mg every 12. Nebulized Perforomist -Acute severe tracheobronchitis with significant productive sputum positive for haemophilus influenza Augmentin -Nonobstructive coronary artery disease with mild diffuse luminal irregularities in LAD and RCA. 50% mid PDA disease. Cardiac catheterization September 2024 Aspirin. Lipitor. -Ischemic cardiomyopathy EF 20-25 %. Cozaar. Toprol-XL. Aldactone 25 mg a day -Acute hypoxic respiratory failure from COPD: Liters nasal cannula -Chronic hypoxic respiratory failure from COPD Home oxygen 2.5 L -Chronic nicotine dependence, cigarettes smoker Nicotine patch -Severe protein calorie malnutrition Ensure 1 can by mouth 3 times a day. Consult dietitian -Hyperlipidemia Lipitor 40 mg daily at bedtime -Chronic insomnia Melatonin -GERD Prilosec -Anxiety depression Zoloft -Primary osteoarthritis Tylenol as needed -Full code Improving. Cut back Solu-Medrol. Past Medical History Past Medical History: Cancer, COPD, GERD/Reflux, Hyperlipidemia, Osteoarthritis (OA), Pneumonia, Prostate Disorder Additional Past Medical History / Comment(s): Hx Prostate cancer, bilateral hand fx in past History of Any Multi-Drug Resistant Organisms: MRSA Date of last positivie culture/infection: 02/28/18 MDRO Source:: MRSA URINE Past Surgical History: Hernia Repair, Prostate Surgery Additional Past Surgical History / Comment(s): colonoscopy, surgery for punctur ed lung, Past Anesthesia/Blood Transfusion Reactions: No Reported Reaction Past Psychological History: Anxiety, Depression Smoking Status: Current every day smoker Past Alcohol Use History: None Reported Past Drug Use History: None Reported
[2024-12-22 20:05] VITALS: RESP 16
[2024-12-22] MEDS: methylPREDNISolone SOD SUCCI 40 MG/ML 1 ML VIAL IV SCH (21:01)
--- NOTE | 2024-12-22 22:05 | P.PN ---
Subjective Progress Note Date: 12/22/24 Patient is a 64-year-old male with past medical history significant for hypertension, hyperlipidemia, nonocclusive coronary artery disease, nonocclusive cardiomyopathy with a ejection fraction of 20 to 25% and a LifeVest, prostate cancer with previous prostatectomy, and oxygen dependent COPD. He does follow in the pulmonary office with Dr. Agosto. He has an FEV1 23% of predicted. He is oxygen dependent on 2.5 L/min nasal cannula 08/02. Normally maintained on Dulera and Spiriva inhalers; however, he has been out of this medication for 2 months. This is due to insurance issues. He has been using his DuoNebs. Brought into the emergency department late last night by EMS. He was in some respiratory distress, tripod breathing. He was given multiple DuoNeb treatments in the ED and loaded with IV Solu-Medrol. Chest x-ray did not show any acute cardiopulmonary process. Hyperinflation and moderate scattered fibrotic changes. Labs including a count of 18.2, hemoglobin 15.6, platelets 297. CMP: Sodium 139, potassium 4.4, chloride 97, serum bicarb 32, BUN 29, creatinine 0.68, glucose 88. LFTs unremarkable. Troponin less than 0.012. NT proBNP 168. Patient currently being evaluated in the emergency department. Endorses increased work of breathing, persistent cough, wheezing, chest tightness, bilateral rib pain with coughing approximately. Cough is productive with yellow to green sputum. Symptoms started 1 to 2 weeks ago. Denies fever/chills. States he was recently [place] . He denies sick contacts. He is chronically oxygen dependent on 2.5 L/min nasal cannula, however, turned this up to 3 L/min because of his increased work of breathing. States that he recently had some work done on their bathroom and the smell from the glue may have triggered his COPD. He denies any chest pain, heart palpitations, lightheadedness, syncopal events, lower extremity edema. He does have a LifeVest at home, however, not wearing it. Current vital signs: Heart rate 94 bpm, blood pressure 105/68 mmHg, nontachypneic, SpO2 reading 93% on 3 L/min nasal cannula. On today's evaluation of 12/20/2024, the patient is being seen for a follow-up. The patient is feeling slightly improved compared to yesterday. Continues to have some cough and congestion. No fever or chills. No chest pain. He was second to 60.2 with a hemoglobin of 14 and a platelet count of 275. BUN is 27 with a creatinine of 0.7 and sodium levels at 139 and a potassium level is at 4. 5. Oxygenation remained stable and the patient remains on 5 L with a pulse ox of 97% and he is afebrile with a temperature of 96.3. Remains on the same regimen of bronchodilators and steroids. He was able to give a sputum sample and results are positive for haemophilus influenza. The patient is on Zithromax On 12/21/2024, the patient is being seen for a follow-up. Continues to cough out purulent respiratory secretions and the patient was started on Augmentin. Remains on IV Solu-Medrol. Remains on DuoNeb nebulizers [id number]. Rest of the medications are essentially unchanged. The white cell count is 16 with a hemoglobin of 14 and those labs are obtained on 12/19/2024. Oxygenation remained stable and the patient is on 4 L of oxygen by nasal cannula with a pulse ox of 97%. No interval worsening shortness of breath. Overall respiratory status is stable. No other significant events overnight. On 12/22/2024, the patient is being seen for a follow-up. Continues to improve sl owly as the patient has a Haemophilus influenzae tracheobronchitis and COPD exacerbation. Afebrile. Pulse ox 96% on oxygen at 3 L. Currently on Augmentin IV Solu-Medrol and DuoNeb noted treatments [id number]. No new complaints for now. Mitts that he is progressively improving. No hemoptysis. No pleurisy. No altered mentation. No chest pain. Objective - Vital Signs Vital signs: Vital Signs Temp 98.6 F 12/22/24 20:00 Pulse 87 12/22/24 20:00 Resp 16 12/22/24 20:00 BP 122/69 12/22/24 20:00 Pulse Ox 96 12/22/24 20:00 FiO2 Intake & Output 12/22/24 12/22/24 12/23/24 06:59 18:59 06:59 Intake Total 1054 Balance 1054 Intake: Oral 1054 Other: Voiding Method Toilet # Voids 3 1 - Exam GENERAL EXAM: Alert, 64-year-old male, cachectic, on 5 L/min nasal cannula, fairly comfortable in no apparent distress. HEAD: Normocephalic and atraumatic EYES: Normal reaction of pupils, equal size. NOSE: Clear with pink turbinates. THROAT: No erythema or exudates. NECK: No masses, no JVD. CHEST: No chest wall deformity. LUNGS: Equal air entry with diffuse bilateral expiratory wheezing and rhonchi. No conversational dyspnea or accessory muscle us while at rest while at rest. Cardiovascular: Normal S1/S2, regular rhythm, no extra heart sounds. ABDOMEN: No hepatosplenomegaly, active bowel sounds, no guarding or rigidity. SPINE: No scoliosis or deformity SKIN: No rashes CENTRAL NERVOUS SYSTEM: No focal deficits, tone is normal in all 4 extremities. EXTREMITIES: There is no peripheral edema or cyanosis. Digital clubbing noted. Peripheral pulses are intact. - Labs CBC & Chem 7: 12/19/24 06:53 12/19/24 06:53 Assessment and Plan Assessment: Acute COPD exacerbation, with an acute haemophilus influenza tracheobronchitis. Acute on chronic hypoxemic respiratory failure, currently on 4 L/min nasal cannula, chest x-ray showing chronic changes with marked hyperinflation and scattered fibrotic changes. No acute infiltrates, pleural effusions, pneumothoraces. Acute leukocytosis secondary to above History of nonocclusive coronary artery disease History of nonischemic cardiomyopathy, with an ejection fraction of 25 to 30%. History of hyperlipidemia Hypertension Very severe chronic obstructive pulmonary disease, with an FEV1 26% of predicted Chronic hypoxemic respiratory failure, secondary to above Chronic tobacco dependence Medication noncompliance, patient has been out of his Dulera inhaler for approximately 2 months due to financial/insurance related issues Severe protein calorie malnutrition with a BMI of 16.6 kg/m History of pneumothorax History of prostate cancer with previous prostatectomy History of anxiety/depression Plan: Patient has Haemophilus influenzae tracheobronchitis and the patient is on on oral Augmentin 875 mg p.o. twice a day Continue supplemental oxygen to maintain oxygen saturation of 90% or greater, currently on 3 L of oxygen nasal cannula Continue Symbicort and Spiriva inhalers Continue albuterol nebs Continue IV Solu-Medrol Smoking cessation counseling performed Dietary advice was given Patient educated on the importance of wearing his LifeVest We will continue to follow-up, possible discharge home in the next 24 hours. Will continue to follow.
[2024-12-23 12:41] VITALS: BP 138/60; PULSE 73; TEMP 98.1
--- NOTE | 2024-12-23 12:52 | P.PN ---
Subjective Progress Note Date: 12/23/24 Patient is a 64-year-old male with past medical history significant for hypertension, hyperlipidemia, nonocclusive coronary artery disease, nonocclusive cardiomyopathy with a ejection fraction of 20 to 25% and a LifeVest, prostate cancer with previous prostatectomy, and oxygen dependent COPD. He does follow in the pulmonary office with Dr. Agosto. He has an FEV1 23% of predicted. He is oxygen dependent on 2.5 L/min nasal cannula 08/02. Normally maintained on Dulera and Spiriva inhalers; however, he has been out of this medication for 2 months. This is due to insurance issues. He has been using his DuoNebs. Brought into the emergency department late last night by EMS. He was in some respiratory distress, tripod breathing. He was given multiple DuoNeb treatments in the ED and loaded with IV Solu-Medrol. Chest x-ray did not show any acute cardiopulmonary process. Hyperinflation and moderate scattered fibrotic changes. Labs including a count of 18.2, hemoglobin 15.6, platelets 297. CMP: Sodium 139, potassium 4.4, chloride 97, serum bicarb 32, BUN 29, creatinine 0.68, glucose 88. LFTs unremarkable. Troponin less than 0.012. NT proBNP 168. Patient currently being evaluated in the emergency department. Endorses increased work of breathing, persistent cough, wheezing, chest tightness, bilateral rib pain with coughing approximately. Cough is productive with yellow to green sputum. Symptoms started 1 to 2 weeks ago. Denies fever/chills. States he was recently on a trip [place] family on . He denies sick contacts. He is chronically oxygen dependent on 2.5 L/min nasal cannula, however, turned this up to 3 L/min because of his increased work of breathing. States that he recently had some work done on their bathroom and the smell from the glue may have triggered his COPD. He denies any chest pain, heart palpitations, lightheadedness, syncopal events, lower extremity edema. He does have a LifeVest at home, however, not wearing it. Current vital signs: Heart rate 94 bpm, blood pressure 105/68 mmHg, nontachypneic, SpO2 reading 93% on 3 L/min nasal cannula. On today's evaluation of 12/20/2024, the patient is being seen for a follow-up. The patient is feeling slightly improved compared to yesterday. Continues to have some cough and congestion. No fever or chills. No chest pain. He was second to 60.2 with a hemoglobin of 14 and a platelet count of 275. BUN is 27 with a creatinine of 0.7 and sodium levels at 139 and a potassium level is at 4. 5. Oxygenation remained stable and the patient remains on 5 L with a pulse ox of 97% and he is afebrile with a temperature of 96.3. Remains on the same regimen of bronchodilators and steroids. He was able to give a sputum sample and results are positive for haemophilus influenza. The patient is on Zithromax On 12/21/2024, the patient is being seen for a follow-up. Continues to cough out purulent respiratory secretions and the patient was started on Augmentin. Remains on IV Solu-Medrol. Remains on DuoNeb nebulizers [id number]. Rest of the medications are essentially unchanged. The white cell count is 16 with a hemoglobin of 14 and those labs are obtained on 12/19/2024. Oxygenation remained stable and the patient is on 4 L of oxygen by nasal cannula with a pulse ox of 97%. No interval worsening shortness of breath. Overall respiratory status is stable. No other significant events overnight. On 12/22/2024, the patient is being seen for a follow-up. Continues to improve sl owly as the patient has a Haemophilus influenzae tracheobronchitis and COPD exacerbation. Afebrile. Pulse ox 96% on oxygen at 3 L. Currently on Augmentin IV Solu-Medrol and DuoNeb noted treatments [id number]. No new complaints for now. Mitts that he is progressively improving. No hemoptysis. No pleurisy. No altered mentation. No chest pain. On 12/23/2024, the patient is being seen for a follow-up. The patient is feeling better. No specific complaints. Currently on Augmentin and DuoNeb the regiment [id number]. He is also on IV Solu-Medrol 40 mg every 8 hours. Non-smoker spastic and wheezy. Oxygenation remained stable and the patient is currently on 4 L with a pulse ox of 97%. No other new complaints otherwise for now. No pleurisy. No hemoptysis. No altered mentation. Sputum production is improved. Objective - Vital Signs Vital signs: Vital Signs Temp 98.1 F 12/23/24 12:15 Pulse 73 12/23/24 12:15 Resp 16 12/23/24 12:15 BP 138/60 12/23/24 12:15 Pulse Ox 97 12/23/24 12:15 FiO2 Intake & Output 12/22/24 12/23/24 12/23/24 18:59 06:59 18:59 Intake Total 1054 Balance 1054 Intake: Oral 1054 Other: Voiding Method Toilet Toilet # Voids 1 3 # Bowel Movements 0 - Exam GENERAL EXAM: Alert, 64-year-old male, cachectic, on 5 L/min nasal cannula, fairly comfortable in no apparent distress. HEAD: Normocephalic and atraumatic EYES: Normal reaction of pupils, equal size. NOSE: Clear with pink turbinates. THROAT: No erythema or exudates. NECK: No masses, no JVD. CHEST: No chest wall deformity. LUNGS: Equal air entry with diffuse bilateral expiratory wheezing and rhonchi. No conversational dyspnea or accessory muscle us while at rest while at rest. Cardiovascular: Normal S1/S2, regular rhythm, no extra heart sounds. ABDOMEN: No hepatosplenomegaly, active bowel sounds, no guarding or rigidity. SPINE: No scoliosis or deformity SKIN: No rashes CENTRAL NERVOUS SYSTEM: No focal deficits, tone is normal in all 4 extremities. EXTREMITIES: There is no peripheral edema or cyanosis. Digital clubbing noted. Peripheral pulses are intact. - Labs CBC & Chem 7: 12/19/24 06:53 12/19/24 06:53 Assessment and Plan Assessment: Acute COPD exacerbation, with an acute haemophilus influenza tracheobronchitis. Clinically improving Acute on chronic hypoxemic respiratory failure, currently on 4 L/min nasal cannula, chest x-ray showing chronic changes with marked hyperinflation and scattered fibrotic changes. No acute infiltrates, pleural effusions, pneumothoraces. Acute leukocytosis secondary to above History of nonocclusive coronary artery disease History of nonischemic cardiomyopathy, with an ejection fraction of 25 to 30%. History of hyperlipidemia Hypertension Very severe chronic obstructive pulmonary disease, with an FEV1 26% of predicted Chronic hypoxemic respiratory failure, secondary to above Chronic tobacco dependence Medication noncompliance, patient has been out of his Dulera inhaler for approximately 2 months due to financial/insurance related issues Severe protein calorie malnutrition with a BMI of 16.6 kg/m History of pneumothorax History of prostate cancer with previous prostatectomy History of anxiety/depression Plan: The patient is stable for now and the patient can be discharged home on a course of Augmentin Patient has Haemophilus influenzae tracheobronchitis and the patient is on on oral Augmentin 875 mg p.o. twice a day Continue supplemental oxygen to maintain oxygen saturation of 90% or greater, currently on 3 L of oxygen nasal cannula Continue Symbicort and Spiriva inhalers, can be resumed Trelegy Ellipta on outpatient basis Continue albuterol nebs Prednisone burst taper on outpatient basis Smoking cessation counseling performed Dietary advice was given Patient educated on the importance of wearing his LifeVest Possible home today
--- NOTE | 2024-12-23 19:39 | P.DS ---
Providers Date of admission: 12/18/24 22:27 Expected date of discharge: 12/23/24 Attending physician: Virgil Garcia Consults: 12/18/24 22:27 Consult Physician Routine Consulting Provider: Eddie Miles Consult Reason/Comments: copd Do you want consulting provider notified?: Yes Primary care physician: Richard Mancia [facility] Course: Chief Complaint: Short of breath Pleasant 64-year-old patient who follows with Dr. Mancia. [employer] Dr. Agosto. Chronic stable medical conditions include GERD, hyperlipidemia, osteoarthritis , anxiety depression. Smoking - 1 pack a day. September 2024: Nonobstructive CAD At baseline patient - short of breath. 2.5 L of oxygen at home And presents with worsening short of breath.. Thick yellow copious sputum. Decreased appetite. Tired. Gets short of breath with few steps. Wheezing. 20 December: Sitting in a tripod position. Short of breath. Continues to put out thick yellow sputum. Remains on IV Solu-Medrol bronchodilators nebulized bronchodilators. Discussed with at the bedside. sputum-hemophilus Influenza December 21: Lying bed. Tired very short of breath. Still bringing up thick yellow sputum. Cultures positive for haemophilus influenza. Antibiotics switched over to Augmentin. December 22: Patient continues to bring up thick yellow-green sputum. Has been switched over to Augmentin. Other medication to continue. Patient is up to the bathroom. Up in the chair. December 23: Sputum production has gone down. Cleared by Dr. Miles for discharge. Patient and counseled length about diet smoking. 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 Another 5 days of Augmentin. Advair and DuoNeb prescription given. Discussion and discharge planning more than 35 minutes Past medical history to include: COPD, GERD, hyperlipidemia, osteoarthritis, prostate cancer, anxiety depression nonobstructive CAD with cardiac cath September 2024 Social history: Smokes a pack, and more previously since age 16. No alcohol. Lives with his . Physical examination: VITAL SIGNS:, 98.1, 73, 16, 138 x 60, 97% 4 L GENERAL: Sitting up in bed. Generalized wasting of muscles loss of subcutaneous fat. Breathing much better EYES: Pupils equal. Conjunctiva normal. HEENT: External appearance of nose and ears normal, oral cavity grossly normal. NECK: JVD not raised; masses not palpable. HEART: First and second heart sounds are normal; no edema. LUNGS: Respiratory rate increased, diminished breath sounds, ABDOMEN: Soft, nontender, liver spleen not palpable, no masses palpable. PSYCH: [Alert and oriented x3; mood and affect anxious MUSCULOSKELETAL:No Clubbing/cyanosis; decreased muscle mass and increased, bony prominences, OA INVESTIGATIONS, reviewed in the clinical context: Sputum: Haemophilus influenza December 19: White count 16.2 hemoglobin 14 platelets 275 sodium 139 potassium 4.5 creatinine 0.76 albumin 3.4 Chest x-ray film personally reviewed by me-severe hyperinflation. Prominent pulmonary artery. 2D echo: [September 2024] EF 20-25%. Mid anterior septal lateral wall severe hypokinesis. Assessment and plan: -Acute severe COPD exacerbation in a current smoker, acute severe tr acheobronchitis, causing acute hypoxic respiratory failure: I improved IV Solu-Medrol 60 mg Q6, DuoNeb 4 times daily, nebulized Pulmicort 1 mg every 12. Nebulized Perforomist Discharged on DuoNeb. Advair. Follow-up with pulmonary. -Acute severe tracheobronchitis with significant productive sputum positive for haemophilus influenza Augmentin-5 more days -Nonobstructive coronary artery disease with mild diffuse luminal irregularities in LAD and RCA. 50% mid PDA disease. Cardiac catheterization September 2024 Aspirin. Lipitor. -Ischemic cardiomyopathy EF 20-25 %. Cozaar. Toprol-XL. Aldactone 25 mg a day -Acute hypoxic respiratory failure from COPD: -Chronic hypoxic respiratory failure from COPD Home oxygen 2.5 L -Chronic nicotine dependence, cigarettes smoker Nicotine patch. Counseled -Severe protein calorie malnutrition Ensure 1 can by mouth 3 times a day. Consult dietitian -Hyperlipidemia Lipitor 40 mg daily at bedtime -Chronic insomnia Melatonin -GERD Prilosec -Anxiety depression Zoloft -Primary osteoarthritis Tylenol as needed -Full code Disposition: Home Past Medical History Past Medical History: Cancer, COPD, GERD/Reflux, Hyperlipidemia, Osteoarthritis (OA), Pneumonia, Prostate Disorder Additional Past Medical History / Comment(s): Hx Prostate cancer, bilateral hand fx in past History of Any Multi-Drug Resistant Organisms: MRSA Date of last positivie culture/infection: 02/28/18 MDRO Source:: MRSA URINE Past Surgical History: Hernia Repair, Prostate Surgery Additional Past Surgical History / Comment(s): colonoscopy, surgery for punctured lung, Past Anesthesia/Blood Transfusion Reactions: No Reported Reaction Past Psychological History: Anxiety, Depression Smoking Status: Current every day smoker Past Alcohol Use History: None Reported Past Drug Use History: None Reported Plan - Discharge Summary Discharge Rx Participant: Yes New Discharge Prescriptions: New Amoxic-Pot Clav 875-125Mg [Augmentin 875-125] 1 each PO Q12HR #10 tab Nicotine 21Mg/24Hr Patch [Habitrol] 1 patch TRANSDERM DAILY #30 patch Fluticasone Propion/Salmeterol [Advair Hfa 230-21 Mcg Inhaler] 1 puff INHALATION BID #1 each Ipratropium-Albuterol Nebulize [Duoneb 0.5 mg-3 mg/3 ml Soln] 3 ml INHALATION RT-QID #120 each Continue Omeprazole [PriLOSEC] 20 mg PO DAILY Atorvastatin [Lipitor] 40 mg PO HS Sertraline [Zoloft] 25 mg PO DAILY Spironolactone [Aldactone] 25 mg PO DAILY #30 tab Metoprolol Succinate (ER) [Toprol XL] 25 mg PO DAILY #30 tab Albuterol Sulfate [Ventolin HFA] 2 puff INHALATION RT-Q4H PRN #0 PRN Reason: Wheezing Tamsulosin [Flomax] 0.4 mg PO DAILY Aspirin 81 mg PO DAILY tab Losartan [Cozaar] 25 mg PO HS #30 tab Sacubitril/Valsartan [Entresto 24 mg-26 mg Tablet] 1 tab PO BID Ipratropium-Albuterol Nebulize [Duoneb 0.5 mg-3 mg/3 ml Soln] 3 ml INHALATION RT-Q6H PRN PRN Reason: Shortness Of Breath Empagliflozin [Jardiance] 10 mg PO DAILY Discharge Medication List Atorvastatin [Lipitor] 40 mg PO HS 06/04/16 [History] Omeprazole [PriLOSEC] 20 mg PO DAILY 06/04/16 [History] Sertraline [Zoloft] 25 mg PO DAILY 10/08/23 [History] Tamsulosin [Flomax] 0.4 mg PO DAILY 09/26/24 [History] Albuterol Sulfate [Ventolin HFA] 2 puff INHALATION RT-Q4H PRN #0 09/29/24 [Rx] Aspirin 81 mg PO DAILY tab 09/29/24 [Rx] Losartan [Cozaar] 25 mg PO HS #30 tab 09/29/24 [Rx] Metoprolol Succinate (ER) [Toprol XL] 25 mg PO DAILY #30 tab 09/29/24 [Rx] Spironolactone [Aldactone] 25 mg PO DAILY #30 tab 09/29/24 [Rx] Empagliflozin [Jardiance] 10 mg PO DAILY 12/19/24 [History] Ipratropium-Albuterol Nebulize [Duoneb 0.5 mg-3 mg/3 ml Soln] 3 ml INHALATION RT-Q6H PRN 12/19/24 [History] Sacubitril/Valsartan [Entresto 24 mg-26 mg Tablet] 1 tab PO BID 12/19/24 [History] Amoxic-Pot Clav 875-125Mg [Augmentin 875-125] 1 each PO Q12HR #10 tab 12/23/24 [Rx] Fluticasone Propion/Salmeterol [Advair Hfa 230-21 Mcg Inhaler] 1 puff INHALATION BID #1 each 12/23/24 [Rx] Ipratropium-Albuterol Nebulize [Duoneb 0.5 mg-3 mg/3 ml Soln] 3 ml INHALATION RT-QID #120 each 12/23/24 [Rx] Nicotine 21Mg/24Hr Patch [Habitrol] 1 patch TRANSDERM DAILY #30 patch 12/23/24 [Rx] Follow up Appointment(s)/Referral(s): Mike Agosto DO [Doctor of Osteopathic Medicine] - 1 Week Richard Mancia MD [Primary Care Provider] - 1-2 days Discharge/Stand Alone Forms: Who Do I Call?, Community Resources
== END 2024-12-23 13:35 | disposition home or self-care (01) | DRG 189 ==
LOC: EC 20:01 → 5NMEDONC 22:27
PROVIDERS: ADMIT Hospitalist; ATTEND Hospitalist
DX: J96.21 Acute and chronic respiratory failure with hypoxia (principal); E43 Unspecified severe protein-calorie malnutrition; K85.90 Acute pancreatitis without necrosis or infection, unspecified; I25.5 Ischemic cardiomyopathy; Z99.81 Dependence on supplemental oxygen; J44.1 Chronic obstructive pulmonary disease with (acute) exacerbation; F32.A Depression, unspecified; I10 Essential (primary) hypertension; J44.0 Chronic obstructive pulmonary disease with (acute) lower respiratory infection; J45.901 Unspecified asthma with (acute) exacerbation; Z68.1 Body mass index [BMI] 19.9 or less, adult; K21.9 Gastro-esophageal reflux disease without esophagitis; E78.5 Hyperlipidemia, unspecified; F41.9 Anxiety disorder, unspecified; F17.210 Nicotine dependence, cigarettes, uncomplicated; I25.10 Atherosclerotic heart disease of native coronary artery without angina pectoris; J20.1 Acute bronchitis due to Hemophilus influenzae; F51.04 Psychophysiologic insomnia; Z79.82 Long term (current) use of aspirin; Z91.141 Patient's other noncompliance with medication regimen due to financial hardship; Z79.51 Long term (current) use of inhaled steroids; Z85.46 Personal history of malignant neoplasm of prostate; Z79.84 Long term (current) use of oral hypoglycemic drugs; Z79.899 Other long term (current) drug therapy; Z90.79 Acquired absence of other genital organ(s)
CPT/HCPCS: 36415; 71045; 80053; 83735; 83880; 84100; 84484; 85025; 85610; 85730; 87070; 87205; 93005; 94640; 94760; 96361; 96374; 96375; 96376; 99291